=== PATIENT | male | born 1975 | race Caucasian/White ===

== ENCOUNTER 2019-03-11 13:08 | Inpatient (IN) | payer MEDICARE, OTHER ==
[~2019-03-11] VITALS: Ht 137.2 cm; Wt 45.2 kg
[2019-03-11 13:10] VITALS: Ht 137.2 cm; Wt 45.2 kg
[2019-03-11] MEDS ORDERED: SODIUM CHLORIDE 0.9% 1L BAG IV* STA (13:12)
[2019-03-11] MEDS ORDERED: CEFEPIME 2GM/50 ML (PMX) 50 ML IVPB STA (13:12)
[2019-03-11] MEDS ORDERED: VANCOMYCIN 1 GM (PMX) 250 ML IVPB ONE (13:30)
[2019-03-11] MEDS ORDERED: BENZ1TAB7 PO (13:30)
[2019-03-11] MEDS ORDERED: FOLI-49 PO (13:31)
[2019-03-11] MEDS ORDERED: DOCU-159 PO (13:31)
[2019-03-11] MEDS ORDERED: MIDO5TAB PO (13:32)
[2019-03-11] MEDS ORDERED: LACTINEX PO (13:32)
[2019-03-11] MEDS ORDERED: OCTR50DI2 SC (13:33)
[2019-03-11] MEDS ORDERED: MULT-105 PO (13:33)
[2019-03-11] MEDS ORDERED: PANT40TA4 PO (13:34)
[2019-03-11] MEDS ORDERED: PRED2.5T3 PO (13:34)
[2019-03-11] MEDS ORDERED: PROT946L PO (13:35)
[2019-03-11] MEDS ORDERED: SENN-120 PO (13:35)
[2019-03-11] MEDS ORDERED: QUET50TA PO (13:36)
[2019-03-11] MEDS ORDERED: ACET1TAB40 PO (13:38)
[2019-03-11] MEDS ORDERED: ACET-141 PO (13:38)
[2019-03-11] MEDS ORDERED: BALS60OI TOP (13:39)
[2019-03-11] MEDS ORDERED: ASC500 PO (13:40)
[2019-03-11] MEDS ORDERED: ALPR0.5T PO (13:41)
[2019-03-11] MEDS ORDERED: TUBE5VIA3 ID (13:42)
[2019-03-11] MEDS ORDERED: DEXTROSE 5%-0.45% NACL 1,000 ML IV SCH (14:13)
[2019-03-11] MEDS ORDERED: ONDANSETRON 4 MG INJ IV PRN ×2 (14:30)
[2019-03-11] MEDS ORDERED: ACETAMINOPHEN 325 MG TAB PO PRN ×2 (14:30)
[2019-03-11] MEDS ORDERED: NACL 0.9% 3 ML SYG IV SCH (14:30)
[2019-03-11] MEDS ORDERED: ACETAMINOPHEN/CODEINE #3 TAB PO PRN (14:30)
[2019-03-11] MEDS ORDERED: ALPRAZOLAM 0.5 MG TAB PO PRN (14:30)
[2019-03-11] MEDS ORDERED: ACETAMINOPHEN 650 MG SUPP PR PRN (15:00)
--- NOTE | 2019-03-11 15:26 | HP ---
Date/Time of Note Date/Time of Note DATE: 03/11/19 TIME: 14:45 Assessment/Plan VTE Prophylaxis SCD applied (from Nsg): Yes Pharmacological prophylaxis: LMWH Lines/Catheters IV Catheter Type (from Nrsg): Saline Lock Urinary Cath still in place: Yes Reason Cath still needed: urinary retention Assessment/Plan Assessment/Plan 1. Sepsis secondary to right sided pneumonia and UTI - Broad spectrum antibiotics started and ID consulted for antibiotic recommendations - Lactic acid normal but WBC slightly elevated - presented with fever and Tylenol PRN 2. Right sided Pneumonia - will treat with IV antibiotics and nebs - Pulmonology was consulted for further recommendations - Seen on CXR. O2 as needed to maintain saturations - Speech evaluation placed to assess for aspiration given right sided PNA - will keep NPO for now until assessed 3. Acute dehydration - most likely etiology of tachycardia given dry mucous membranes - IVF on board 4. UTI - UA noted - urine cultures sent - IV antibiotics on board 5. Anemia - will check iron levels - no verito bleeding appreciated 6. Mood disorder - continue home medications 7. ?Congenital abnormalities 8. Diet - keep NPO for now 9. DVT ppx - LMWH 10. Disposition - Admit to telemetry for treatment of sepsis secondary to UTI and right sided Pneumonia - request made to obtain patients medical chart from [facility] Result Diagram: 03/11/19 1331 03/11/19 1331 Results 24hrs Laboratory Tests Test 03/11/19 13:31 03/11/19 13:32 03/11/19 13:45 White Blood Count 14.9 H Red Blood Count 3.61 L Hemoglobin 10.5 L Hematocrit 32.6 L Mean Corpuscular Volume 90.3 Mean Corpuscular Hemoglobin 29.1 Mean Corpuscular Hemoglobin Concent 32.2 Red Cell Distribution Width 19.1 H Platelet Count 402 Mean Platelet Volume 8.8 Immature Granulocytes % 0.700 H Neutrophils % 80.8 H Lymphocytes % 15.3 Monocytes % 3.0 Eosinophils % 0.0 Basophils % 0.2 Nucleated Red Blood Cells % 0.0 Immature Granulocytes # 0.100 H Neutrophils # 12.1 H Lymphocytes # 2.3 Monocytes # 0.4 Eosinophils # 0.0 Basophils # 0.0 Nucleated Red Blood Cells # 0.0 Prothrombin Time 16.0 H Prothrombin Time Ratio 1.3 INR International Normalized Ratio 1.27 Activated Partial Thromboplast Time 28.3 Sodium Level 138 Potassium Level 3.9 Chloride Level 109 Carbon Dioxide Level 22 Anion Gap 7 Blood Urea Nitrogen 18 Creatinine 0.52 L Est Glomerular Filtrat Rate mL/min > 60 Glucose Level 100 Calcium Level 8.2 L Total Bilirubin 0.8 Direct Bilirubin 0.00 Indirect Bilirubin 0.8 Aspartate Amino Transf (AST/SGOT) 20 Alanine Aminotransferase (ALT/SGPT) 12 L Alkaline Phosphatase 82 Troponin I < 0.012 Total Protein 7.3 Albumin 2.9 L Globulin 4.40 H Albumin/Globulin Ratio 0.65 Amylase Level 44 Lipase < 10 L POC Venous Lactate 1.4 Urine Color HILARIO Urine Clarity CLOUDY A Urine pH 6.0 Urine Specific [place] 1.027 Urine Ketones NEGATIVE Urine Nitrite NEGATIVE Urine Bilirubin NEGATIVE Urine Urobilinogen NEGATIVE Urine Leukocyte Esterase 3+ H Urine Microscopic RBC 66 H Urine Microscopic WBC > 182 H Urine Squamous Epithelial Cells FEW Urine Amorphous Crystals FEW A Urine Bacteria FEW A Urine Mucus FEW A Urine Hemoglobin NEGATIVE Urine Glucose NEGATIVE Urine Total Protein 2+ H HPI/ROS Admit Date/Time Admit Date/Time 03/11/19 Hx of Present Illness 43 yo M with congenital deformities presented to ED from residential due to fev ers and tachycardia. Patient is blind and nonverbal. There was no documentation with patient at time of presentation. History obtained from ED physician who was not told any PMH by EMS. Patient currently resides in a SNF and was found to be febrile. In the ED patient was found hypoxic and placed on nonrebreather mask with improvement in saturations. CXR was performed with findings of right sided infiltrate. Patient was started on IV antibiotics as well as IV fluids. ROS All 12 systems reviewed and pertinent positives as per HPI. All others negative. Unable to fully obtain ROS given patient is nonverbal Subjective hx not possible: pt non-verbal Constitutional: febrile Respiratory: shortness of breath; No cough PMH/Family/Social Past Medical History Medical History: other (unknown PMH) Medications Current Medications Vancomycin HCl 250 ml @ 125 mls/hr ONCE ONCE IVPB Last administered on 03/11/19at 13:56; Admin Dose 125 MLS/HR; Start 03/11/19 at 13:30; Stop 03/11/19 at 15:29 Acetaminophen/ Codeine Phosphate (Tylenol No.3) 1 tab Q8H PRN PO PAIN LEVEL 1- 10/10; Start 03/11/19 at 14:30; Status UNV Alprazolam (Xanax) 0.5 mg Q8H PRN PO ANXIETY; Start 03/11/19 at 14:30 Ascorbic Acid (Vitamin C) 500 mg DAILY PO ; Start 03/12/19 at 09:00; Status UNV Benztropine Mesylate (Cogentin) 1 mg Q12H PO ; Start 03/11/19 at 14:30; Status UNV Docusate Sodium (Colace) 100 mg BID PO ; Start 03/11/19 at 21:00; Status UNV Folic Acid (Folic Acid) 1 mg DAILY PO ; Start 03/12/19 at 09:00; Status UNV Midodrine (Proamatine) 5 mg TID PO ; Start 03/11/19 at 21:00; Status UNV Octreotide Acetate (Sandostatin) 50 mcg QHS SC ; Start 03/11/19 at 21:00; Status UNV Pantoprazole (Protonix Tab) 40 mg AC BREAKFAST PO ; Start 03/12/19 at 07:00; Status UNV Prednisone (Prednisone) 2.5 mg DAILY PO ; Start 03/12/19 at 09:00; Status UNV Quetiapine Fumarate (Seroquel) 50 mg BID PO ; Start 03/11/19 at 21:00; Status UNV Senna (Senokot) 2 tab BID PO ; Start 03/11/19 at 21:00; Status UNV Miscellaneous Information 1 tab DAILY PO ; Start 03/12/19 at 09:00; Status UNV Miscellaneous Information 1 each DAILY PO ; Start 03/12/19 at 09:00; Status UNV Dextrose/Sodium Chloride 1,000 ml @ 75 mls/hr [id number] IV ; Start 03/11/19 at 14:13; Status UNV IV Flush (NS 3 ml) 3 ml PER PROTOCOL IV ; Start 03/11/19 at 14:30; Status UNV Ondansetron HCl (Zofran Inj) 4 mg Q6H PRN IV NAUSEA/VOMITING; Start 03/11/19 at 14:30; Status UNV Acetaminophen (Tylenol Tab) 650 mg Q6H PRN PO .PAIN 1-3 OR TEMP; Start 03/11/19 at 14:30; Status UNV Enoxaparin Sodium (Lovenox) 40 mg DAILY SC ; Start 03/12/19 at 09:00; Status UNV Cefepime HCl 50 ml @ 100 mls/hr Q12 IV ; Start 03/11/19 at 21:00; Status UNV Albuterol (Proventil 0.083% (Neb)) 2.5 mg Q6HWA RESP THERAPY NEB ; Start 03/11/19 at 20:00 Albuterol/ Ipratropium (Duoneb) 3 ml Q2H RESP THERAPY PRN NEB SHORTNESS OF BREATH; Start 03/11/19 at 14:30 Ondansetron HCl (Zofran Inj) 4 mg ER BRIDGE PRN IV NAUSEA/VOMITING; Start 03/11/19 at 14:30; Stop 03/12/19 at 14:29 Acetaminophen (Tylenol Tab) 650 mg ER BRIDGE PRN PO .MILD PAIN 1-3 OR TEMP; Start 03/11/19 at 14:30; Stop 03/12/19 at 14:29 Coded Allergies: No Known Allergy (Unverified , 03/11/19) Past Surgical History Past Surgical Hx: other (abdominal surgical scar noted) Family History Significant Family History: other (unknown) Social History Alcohol Use: none Smoking Status: Never smoker Drug Use: none Exam/Review of Systems Vital Signs Vitals Vital Signs Date Temp Pulse Resp B/P (MAP) Pulse Ox O2 O2 Flow FiO2 Time Delivery Rate 03/11/19 Simple 5 13:15 Mask 03/11/19 101.6 132 24 91/ 60 13:10 Exam Exam General: Patient is laying bed, dehydration with temporal wasting, sucking motion with mouth but does not appear in any respiratory distress HEENT: Atraumatic, normocephalic. eyes sunken with whitened pupil Neck: Supple with full range of motion. No rigidity or meningismus Chest: nontender Lungs: Coarse breath sounds diffusely, No wheezing Heart: Normal S1-S2, Regular rhythm, tachycardia. systolic murmur Abdomen: Soft , nontender, nondistended , bowel sounds are present. No guarding no rebound tenderness , No masses or organomegaly Extremities: contracture of lower extremities, muscle wasting UE and LE b/l. no cyanosis, clubbing, or edema Neurologic: unable to assess Skin: no rashes or lesions appreciated. midline abdominal scar appreciated Additional Comments Home medications reviewed PROCEDURE: XR Chest. CLINICAL INDICATION: chest pain TECHNIQUE: Single frontal view of the chest was obtained COMPARISON: None FINDINGS: There is mild cardiomegaly. There are extensive right upper lobe and right lower lobe infiltrates. There is a small right pleural effusion. There is no pneumothorax. RPTAT: AA IMPRESSION: Extensive infiltrates in the right upper lobe and right lower lobe. .Ajit Rhodes MD, MD Date Time Electronically viewed and signed by .Ajit Rhodes MD, MD on 03/11/2019 13:48 MANDO LUCAS MD Mar 11, 2019 14:58
--- NOTE | 2019-03-11 15:50 | ERD ---
ER Documentation Chief Complaint Chief Complaint Tachycardia, fever X 1 day HPI This is a 43-year-old male who is bedbound blind and unable to talk due to suspected Down syndrome. The patient was brought into the emergency department from EMS from a SNF facility being [facility], [place]. They indicate that the patient has a history of gastroesophageal reflux disease, hereditary spastic paraplegia and history of muscle wasting and atrophy. Nursing staff at [facility] indicated that the patient has had a fever and tachycardia for roughly 24 hours. It is unknown if the patient had received antipyretics prior to arrival. There is no documentation that came with the patient so history was very limited. ROS All systems reviewed and are negative except as per history of present illness. Medications Home Meds Reported Medications Tuberculin,Purif.prot.deriv. (Tubersol) 5 Tub Unit/0.1 Ml Vial, 5 TUB ID ONCE, VIAL START DATE 03/14/19 AND END DATE 03/14/19 03/11/19 Alprazolam* (Xanax*) 0.5 Mg Tab, 0.5 MG PO Q8H PRN for ANXIETY, TAB FOR 14 DAYS, STOP DATE 03/17/19 03/11/19 Ascorbic Acid (Vitamin C) 500 Mg Tab, 500 MG PO DAILY, TAB 03/11/19 Balsam [place] Oil (Venelex Ointment) 60 Gm Oint..gm., 1 APPLIC TOP DAILY, #1 TUB 03/11/19 Acetaminophen* (Acetaminophen*) 500 MG Extra Strength Tablet, 500 MG PO Q6H PRN for MILD PAIN(1-3)OR ELEVATED TEMP, TAB 03/11/19 Acetaminophen with Codeine (Acetaminophen-Cod #3 Tablet) 1 Each Tablet, 1 TAB PO Q8H PRN for PAIN LEVEL 1-10/10, #7 TAB 03/11/19 Quetiapine Fumarate* (Seroquel*) 50 Mg Tablet, 50 MG PO BID, TAB 03/11/19 Sennosides* (Senna Lax*) 8.6 Mg Tablet, 2 TAB PO BID, TAB 03/11/19 Protein Supplement (Promod) 946 Ml Liquid, 30 ML PO TID 03/11/19 Prednisone* (Prednisone*) 2.5 Mg Tablet, 2.5 MG PO DAILY, TAB 03/11/19 Pantoprazole* (Pantoprazole*) 40 Mg Tablet.dr, 40 MG PO AC BREAKFAST, TAB 03/11/19 Octreotide Acetate* (Octreotide Acetate*) 50 Mcg/1 Ml Disp.syrin, 50 MCG SC QHS, VIAL 03/11/19 Multivitamin with Minerals (Multivitamins with Minerals) 1 Each Tablet, 1 EACH PO DAILY, TAB 03/11/19 Midodrine* (Midodrine*) 5 Mg Tablet, 5 MG PO TID, TAB 03/11/19 Lactobacillus Acidophilus* (Lactinex*) 1 Tab Chew, 1 TAB PO DAILY, TAB 03/11/19 Folic Acid* (Folic Acid*) 1 Mg Tablet, 1 MG PO DAILY, TAB 03/11/19 Docusate Sodium* (Docusate Sodium*) 100 Mg Capsule, 100 MG PO BID, #60 CAP 03/11/19 Benztropine Mesylate* (Benztropine Mesylate*) 1 Mg Tablet, 1 MG PO Q12H, TAB 03/11/19 Allergies Allergies: Coded Allergies: No Known Allergy (Unverified , 03/11/19) PMhx/Soc Medical and Surgical Hx: Unable to obtain Hx Alcohol Use: No Hx Substance Use: No Hx Tobacco Use: No Smoking Status: Never smoker Physical Exam Vitals Vital Signs Date Temp Pulse Resp B/P (MAP) Pulse Ox O2 O2 Flow FiO2 Time Delivery Rate 03/11/19 125 24 95/59 (71) 96 Mask 5.0 13:30 03/11/19 Simple 5 13:15 Mask 03/11/19 Simple 5.0 13:15 Mask 03/11/19 101.6 132 24 91/ 60 13:10 Physical Exam Constitutional: Disheveled. HEENT: Atraumatic. Obvious abnormalities with sclera present and no pupils with congenital blindness. Very dry mucous membranes.No tonsillar exudates. Neck: No nuchal rigidity. No lymphadenopathy. No posterior cervical spine tenderness or step-offs. Respiratory: Tachypneic. Decreased breath sounds heard throughout the right hemithorax. No wheezing no rhonchi no rales. Cardiovascular: Tachycardic with regular rhythm. Systolic murmur heard between the first and second intercostal space with no radiation. No rubs were appreciated.S1, S2 normal. Distal pulses are palpable 2+ bilaterally. GI: Abdomen was soft. Nontender. Non Distended. No pulsatile abdominal masses or bruits. No rebound. No guarding. Bowel sounds were present and normal. Previous surgical scar. Muscle skeletal: Muscle atrophy of the bilateral lower extremities. Flexion contraction. Skin: No petechia, no purpura. No lesions on the palms or the soles of the feet. No maculopapular rash. NEURO: Patient is bedbound. Aphasic. Does not follow verbal command. Result Diagram: 03/12/1952303/12/19523 Results 24 hrs Laboratory Tests Test 03/11/19 13:31 03/11/19 13:32 03/11/19 13:45 White Blood Count 14.9 10^3/ul Red Blood Count 3.61 10^6/ul Hemoglobin 10.5 g/dl Hematocrit 32.6 % Mean Corpuscular Volume 90.3 fl Mean Corpuscular Hemoglobin 29.1 pg Mean Corpuscular 32.2 g/dl Hemoglobin Concent Red Cell Distribution Width 19.1 % Platelet Count 402 10^3/UL Mean Platelet Volume 8.8 fl Immature Granulocytes % 0.700 % Neutrophils % 80.8 % Lymphocytes % 15.3 % Monocytes % 3.0 % Eosinophils % 0.0 % Basophils % 0.2 % Nucleated Red Blood Cells % 0.0 /100WBC Immature Granulocytes # 0.100 10^3/ul Neutrophils # 12.1 10^3/ul Lymphocytes # 2.3 10^3/ul Monocytes # 0.4 10^3/ul Eosinophils # 0.0 10^3/ul Basophils # 0.0 10^3/ul Nucleated Red Blood Cells # 0.0 10^3/ul Prothrombin Time 16.0 Sec Prothrombin Time Ratio 1.3 INR International 1.27 Normalized Ratio Activated Partial Thromboplast 28.3 Sec Time Sodium Level 138 mmol/L Potassium Level 3.9 mmol/L Chloride Level 109 mmol/L Carbon Dioxide Level 22 mmol/L Anion Gap 7 Blood Urea Nitrogen 18 mg/dl Creatinine 0.52 mg/dl Est Glomerular Filtrat > 60 mL/min Rate mL/min Glucose Level 100 mg/dl Calcium Level 8.2 mg/dl Total Bilirubin 0.8 mg/dl Direct Bilirubin 0.00 mg/dl Indirect Bilirubin 0.8 mg/dl Aspartate Amino 20 IU/L Transf (AST/SGOT) Alanine 12 IU/L Aminotransferase (ALT/SGPT) Alkaline Phosphatase 82 IU/L Troponin I < 0.012 ng/ml Total Protein 7.3 g/dl Albumin 2.9 g/dl Globulin 4.40 g/dl Albumin/Globulin Ratio 0.65 Amylase Level 44 U/L Lipase < 10 U/L POC Venous Lactate 1.4 mmol/L Urine Color HILARIO Urine Clarity CLOUDY Urine pH 6.0 Urine Specific [place] 1.027 Urine Ketones NEGATIVE mg/dL Urine Nitrite NEGATIVE mg/dL Urine Bilirubin NEGATIVE mg/dL Urine Urobilinogen NEGATIVE mg/dL Urine Leukocyte Esterase 3+ Susi/ul Urine Microscopic RBC 66 /HPF Urine Microscopic WBC > 182 /HPF Urine Squamous Epithelial Cells FEW /HPF Urine Amorphous Crystals FEW /HPF Urine Bacteria FEW /HPF Urine Mucus FEW /HPF Urine Hemoglobin NEGATIVE mg/dL Urine Glucose NEGATIVE mg/dL Urine Total Protein 2+ mg/dl Current Medications Medications Dose Sig/Clarence Start Time Status Last (Trade) Ordered Route PRN Stop Time Admin Dose Reason Admin Sodium 2,100 ml BOLUS OVER 2 03/11/19 DC 03/11/19 Chloride HOURS STAT 13:12 13:33 (NS) IV* 03/11/19 13:14 Cefepime HCl 50 ml @ ONCE STAT 03/11/19 DC 03/11/19 100 mls/hr IVPB 13:12 13:33 03/11/19 13:41 Vancomycin 250 ml @ ONCE ONCE 03/11/19 DC 03/11/19 HCl 125 mls/hr IVPB 13:30 13:56 03/11/19 15:29 1 tab Q8H PRN 03/11/19 Acetaminophen PO PAIN 14:30 / Codeine LEVEL 1-06/10 Phosphate (Tylenol No.3) Alprazolam 0.5 mg Q8H PRN 03/11/19 (Xanax) PO ANXIETY 14:30 1,000 ml @ [id number] IV 03/11/19 Hold 03/11/19 Dextrose/Sodi 75 mls/hr 14:13 20:35 um Chloride IV Flush 3 ml PER 03/11/19 (NS 3 ml) PROTOCOL IV 14:30 Ondansetron 4 mg Q6H PRN 03/11/19 HCl (Zofran IV 14:30 Inj) NAUSEA/VOMITI NG 650 mg Q6H PRN 03/11/19 Acetaminophen PO .PAIN 1-3 14:30 (Tylenol OR TEMP Tab) Albuterol/ 3 ml Q2H RESP 03/11/19 03/12/19 Ipratropium THERAPY PRN 14:30 00:23 (Duoneb) NEB SHORTNESS OF BREATH Ondansetron 4 mg ER BRIDGE 03/11/19 HCl (Zofran PRN IV 14:30 Inj) NAUSEA/VOMITI 03/12/19 14:29 NG 650 mg ER BRIDGE 03/11/19 Acetaminophen PRN PO 14:30 (Tylenol .MILD PAIN 03/12/19 14:29 Tab) 1-3 OR TEMP Procedures/MDM This is a 43-year-old male that appears to have underlying cerebral palsy. The patient was tachycardic and hypoxic and did meet Sirs criteria. Lactic acid however was normal. The patient did receive IV fluids for suspected clinical dehydration. I obtained a bedside radiograph of the chest which was reviewed by myself. The patient had significant infiltrates in the right upper and lower lung base. This was thought to be secondary to aspiration pneumonia. The patient had received IV antibiotics after blood cultures were obtained. The patient received cefepime and vancomycin. The patient also had an indwelling Sanabria catheter with a suspected urinary tract infection as the urine was very cloudy. 12 Lead EKG tracing ordered and reviewed by myself showed: Sinus tachycardia 119 bpm and no arrhythmia. HI interval normal. QRS duration normal. PVCs No ST segment elevation No ST segment depression. No changes consistent with acute ischemia. The patient will be admitted for continuation of IV antibiotics to the hospitalist Dr. Dominguez. The patient will go to the telemetry service as he was still tachycardic thought to be secondary to dehydration and the infectious process being the pneumonia and urinary tract infection. Critical Care: Time: 65 minutes Treatments/Evaluations: Close monitoring and treatment of unstable vital signs, cardiorespiratory, and neurologic status, while maintaining tight balance of fluid, respiratory, and cardiac interventions. Time does not include performing any of the above billable procedures. Departure Diagnosis: Primary Impression: Pneumonia Pneumonia type: aspiration pneumonia Aspiration pneumonia type: unspecified Laterality: right Lung location: unspecified part of lung Qualified Codes: J69.0 - Pneumonitis due to inhalation of food and vomit Condition: Serious ELBA ELIZABETH MD Mar 11, 2019 15:33
[2019-03-11 19:25] VITALS: BP 98/66; PULSE 60; RESP 23
[2019-03-11] MEDS: CEFEPIME 1GM/50 ML (PMX) 50 ML IV SCH (20:35)
[2019-03-11] MEDS: SENNA TAB PO SCH ×2 (20:35→20:59)
[2019-03-11] MEDS: DOCUSATE SODIUM 100 MG CAP PO SCH ×2 (20:36→20:59)
[2019-03-11] MEDS: QUETIAPINE 25 MG TAB PO SCH ×2 (20:36→20:59)
[2019-03-11] MEDS: MIDODRINE 5 MG TAB PO SCH ×2 (20:36→20:59)
[2019-03-11] MEDS: BENZTROPINE 1 MG TAB PO SCH (20:59)
[2019-03-11] MEDS: ALBUTEROL 0.083% (NEB) 2.5 MG/3 ML AMP NEB SCH (21:06)
[2019-03-11] MEDS: LORAZEPAM 2 MG INJ IV PRN (21:16)
--- NOTE | 2019-03-11 21:36 | CONS ---
DATE OF ADMISSION: 03/11/2019 DATE OF CONSULTATION: 03/11/2019 TYPE OF CONSULTATION: Infectious Disease. REASON FOR CONSULTATION: Antibiotic management. HISTORY OF PRESENT ILLNESS: Mk Nguyen is a 43-year-old male who came into the emergency room with tachycardia and fever of 1 day's duration. The patient is bedbound, blind, unable to talk due to sanon spected Down syndrome. He came to the emergency room from longterm facility. Has a history o f gastroesophageal reflux disease, hereditary spastic paraplegia, history of muscle wasting and atrop hy. The patient has had a fever and tachycardia for about 24 hours and has received antipyretics stanislav or to arrival. PAST MEDICAL HISTORY: Essentially as outlined. FAMILY HISTORY: Noncontributory. SOCIAL HISTORY: He lives in a longterm facility. ALLERGIES: NONE TO PENICILLIN, SULFA OR FOODS. MEDICATIONS: Per chart. REVIEW OF SYSTEMS: As per HPI. PHYSICAL EXAMINATION: VITAL SIGNS: T-max 101.6, pulse of 132, respirations 24, and blood pressure was 95/59. GENERAL: The patient has SIRS with probable septic shock. He is disheveled. HEENT: Within normal limits. He has congenital blindness. Sclerae are present. No pupil, congenit al blindness. Mouth without tonsillar exudates. NECK: Supple. LYMPH NODES: None palpable. CHEST: Decreased breath sounds heard throughout the right hemithorax. HEART: Without murmur or gallop. He is tachycardic. ABDOMEN: Soft, nontender, nondistended. Previous surgical scar present. EXTREMITIES: Muscle atrophy of the bilateral lower extremities with flexion contractures. SKIN: Without petechiae per no lesion on the palms or soles of his feet. RECTAL AND GENITAL: Deferred. NEUROLOGIC: The patient is aphasic, bedbound, does not follow commands. ANCILLARY LABORATORY DATA: White count 14.9, H and H of 10.5 and 32.6, platelet count 402,000. BUN and creatinine 18/0.52. Neutrophils 81%. The patient was started on vancomycin and cefepime. Chest x-ray shows extensive infiltrates in the right upper lobe and right lower lobe. Urine shows 3+ leuko cyte esterase and greater than 182 white cells per high powered field. IMPRESSION: The patient has both pneumonia, probably aspiration, as well as urinary tract infection. He has right-sided pneumonia, urinary tract infection. He is on vancomycin and Zosyn. His white c ount is elevated with a shift to the left. We will continue him on this regimen. I would check with conservator or family in terms of how vigorous they want us to be with regards to his code status. I will dictate my findings to the hospitalist. Dictated By: MICHAEL COLON MD, JD/JEFFREY Conf#: [id number] DID#: [id number] CC: MANDO LUCAS MD;*EndCC*
[2019-03-11] MEDS: OCTREOTIDE 50 MCG INJ SC SCH (22:07)
[2019-03-11 23:27] VITALS: BP 111/70; PULSE 125; RESP 25
[2019-03-12] VITALS (14 sets, daily range): BP systolic 99–124; BP diastolic 60–82; PULSE 65–130; RESP 16–21
[2019-03-12] MEDS: ALBUTEROL/IPRATROPIUM (NEB) 3 ML AMP NEB PRN (00:23)
[2019-03-12] MEDS: LORAZEPAM 2 MG INJ IV PRN ×3 (03:08→20:53)
[2019-03-12] MEDS: PANTOPRAZOLE 40 MG INJ IV SCH (06:29)
[2019-03-12] MEDS ORDERED: PANTOPRAZOLE (EC) 40 MG TAB PO SCH (07:00)
[2019-03-12] MEDS: ALBUTEROL 0.083% (NEB) 2.5 MG/3 ML AMP NEB SCH (07:45)
[2019-03-12] MEDS: CEFEPIME 1GM/50 ML (PMX) 50 ML IV SCH ×2 (08:21→20:52)
[2019-03-12] MEDS: ENOXAPARIN 40 MG/0.4 ML SYG SC SCH (08:32)
[2019-03-12] MEDS: BENZTROPINE 1 MG TAB PO SCH ×2 (08:33→20:54)
[2019-03-12] MEDS: MULTIVITAMINS THERAPEUTIC TAB PO SCH (08:34)
[2019-03-12] MEDS: MIDODRINE 5 MG TAB PO SCH ×3 (08:34→20:54)
[2019-03-12] MEDS: SENNA TAB PO SCH ×2 (08:34→20:55)
[2019-03-12] MEDS: LACTOBACILLUS RHAMNOSUS CAP PO SCH (08:34)
[2019-03-12] MEDS: ASCORBIC ACID 500 MG TAB PO SCH (08:34)
[2019-03-12] MEDS: DOCUSATE SODIUM 100 MG CAP PO SCH ×2 (08:34→20:54)
[2019-03-12] MEDS: QUETIAPINE 25 MG TAB PO SCH ×2 (08:34→20:56)
[2019-03-12] MEDS: FOLIC ACID 1 MG TAB PO SCH (08:34)
[2019-03-12] MEDS ORDERED: ALBUTEROL/IPRATROPIUM (NEB) 3 ML AMP HHN SCH ×2 (09:00→14:00)
[2019-03-12] MEDS ORDERED: KETOROLAC 15 MG INJ IV PRN (09:00)
[2019-03-12] MEDS ORDERED: morphine 2 MG INJ IV PRN (09:00)
[2019-03-12] MEDS ORDERED: predniSONE 2.5 MG TAB PO SCH (09:00)
[2019-03-12] MEDS ORDERED: NON-FORMULARY/PATIENT OWN MED (Lactobacillus Acidophilus* (Lactinex*) 1 TAB) PO SCH (09:00)
--- NOTE | 2019-03-12 09:55 | PN ---
Date/Time of Note Date/Time of Note DATE: 03/12/19 TIME: 09:48 Assessment/Plan VTE Prophylaxis Risk score (from Ns)>0 risk: 5 SCD applied (from Ns): Yes Pharmacological prophylaxis: LMWH Lines/Catheters IV Catheter Type (from Nrs): Saline Lock Urinary Cath still in place: Yes Reason Cath still needed: urinary retention Assessment/Plan Assessment/Plan 1. Sepsis secondary to right sided pneumonia and UTI - ID on board and appreciate recommendations. Continue on Vanc and Cefepime - Lactic acid normal. WBC trending down and remains afebrile 2. Bilateral pneumonia - CXR showing diffuse right sided and left lower PNA. desaturated last night but improved this am after neb tx. - Will add solumedrol - Pulmonology was consulted for further recommendations - Speech evaluation placed to assess for aspiration given right sided PNA - will keep NPO for now until assessed 3. Acute dehydration - most likely etiology of tachycardia given dry mucous membranes - IVF on board 4. UTI - UA noted - urine cultures sent - IV antibiotics on board 5. Anemia - will check iron levels when sepsis improved - no verito bleeding appreciated 6. 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 Disposition - Continue treatment for bilateral pneumonia and awaiting recommendations from Pulmonology Result Diagram: 03/12/19 0524 03/12/19 0524 Results 24hrs Laboratory Tests Test 03/11/19 13:31 03/11/19 13:32 03/11/19 13:45 03/11/19 15:17 White Blood 14.9 H Count Red Blood Count 3.61 L Hemoglobin 10.5 L Hematocrit 32.6 L Mean Corpuscular 90.3 Volume Mean Corpuscular 29.1 Hemoglobin Mean Corpuscular 32.2 Hemoglobin Jacque nt Red Cell 19.1 H Distribution Width Platelet Count 402 Mean Platelet 8.8 Volume Immature 0.700 H Granulocytes % Neutrophils % 80.8 H Lymphocytes % 15.3 Monocytes % 3.0 Eosinophils % 0.0 Basophils % 0.2 Nucleated Red 0.0 Blood Cells % Immature 0.100 H Granulocytes # Neutrophils # 12.1 H Lymphocytes # 2.3 Monocytes # 0.4 Eosinophils # 0.0 Basophils # 0.0 Nucleated Red 0.0 Blood Cells # Prothrombin Time 16.0 H Prothrombin Time 1.3 Ratio INR 1.27 International Normalized Ratio Activated 28.3 Partial Thrombop last Time Sodium Level 138 Potassium Level 3.9 Chloride Level 109 Carbon Dioxide 22 Level Anion Gap 7 Blood Urea 18 Nitrogen Creatinine 0.52 L Est Glomerular > 60 Filtrat Rate mL/min Glucose Level 100 Calcium Level 8.2 L Total Bilirubin 0.8 Direct Bilirubin 0.00 Indirect 0.8 Bilirubin Aspartate Amino 20 Transf (AST/SGOT ) Alanine 12 L Aminotransferase (ALT/SGPT) Alkaline 82 Phosphatase Troponin I < 0.012 Total Protein 7.3 Albumin 2.9 L Globulin 4.40 H Albumin/Globulin 0.65 Ratio Amylase Level 44 Lipase < 10 L POC Venous 1.4 Lactate Urine Color HILARIO Urine Clarity CLOUDY A Urine pH 6.0 Urine Specific 1.027 Lamar Urine Ketones NEGATIVE Urine Nitrite NEGATIVE Urine Bilirubin NEGATIVE Urine NEGATIVE Urobilinogen Urine Leukocyte 3+ H Esterase Urine 66 H Microscopic RBC Urine > 182 H Microscopic WBC Urine Squamous FEW Epithelial Cells Urine Amorphous FEW A Crystals Urine Bacteria FEW A Urine Mucus FEW A Urine Hemoglobin NEGATIVE Urine Glucose NEGATIVE Urine Total 2+ H Protein Lactic Acid 1.8 Level Test 03/11/19 17:24 03/12/19 00:42 03/12/19 05:24 03/12/19 07:00 Lactic Acid 1.4 Level Blood Gas Blood arterial Blood arterial Specimen Source Arterial Blood 03/12/2019 12:45 03/12/2019 7:26: Date Drawn :50 AM 07 AM Arterial Blood 7.349 L 7.431 pH (Temp corrected) Arterial Blood 40.9 33.5 L pCO2 (Temp correct) Arterial Blood 89.2 84.1 pO2 (Temp corrected) Arterial Blood 22.0 21.8 L HCO3 Arterial Blood -3.4 L -1.9 Base Excess Arterial Blood 95.8 96.3 Oxygen Saturatio n Jann Test ACCEPTAB N/A Arterial Blood Right Radial Right Brachial Gas Puncture Site Arterial 0.2 0.3 Blood Carboxyhem oglobin Arterial Blood 0.2 0.4 Methemoglobin Blood Gas A-a O2 214.1 H 227.5 H Differential Oxyhemoglobin 95.4 95.6 Percent Blood Gas 37.0 37.0 Temperature Blood Gas MASK - SIMPLE MASK - SIMPLE Modality FiO2 49.0 49.0 Blood Gas STU TM Notified Whom Blood Gas 03/12/2019 12:59 03/12/2019 7:42: Notified Time :57 AM 44 AM White Blood 13.8 H Count Red Blood Count 3.43 L Hemoglobin 10.1 L Hematocrit 31.3 L Mean Corpuscular 91.3 Volume Mean Corpuscular 29.4 Hemoglobin Mean Corpuscular 32.3 Hemoglobin Jacque nt Red Cell 18.8 H Distribution Width Platelet Count 379 Mean Platelet 8.6 Volume Immature 0.900 H Granulocytes % Neutrophils % 80.8 H Lymphocytes % 14.0 L Monocytes % 3.6 Eosinophils % 0.4 Basophils % 0.3 Nucleated Red 0.0 Blood Cells % Immature 0.130 H Granulocytes # Neutrophils # 11.2 H Lymphocytes # 1.9 Monocytes # 0.5 Eosinophils # 0.1 Basophils # 0.0 Nucleated Red 0.0 Blood Cells # Sodium Level 138 Potassium Level 3.3 L Chloride Level 108 Carbon Dioxide 23 Level Anion Gap 7 Blood Urea 15 Nitrogen Creatinine 0.47 L Est Glomerular > 60 Filtrat Rate mL/min Glucose Level 70 Calcium Level 8.6 Magnesium Level 1.7 Subjective 24 Hr Interval Summary Free Text/Dictation Patient more agitated this am and appears to be uncomfortable. Keeps tugging at sánchez catheter. Per nursing, he was desaturating overnight and given breathing treatments with improvement. Tolerating RA and saturating >90%. Mittens needed given patient keeps pulling at lines/catheter. Exam/Review of Systems Exam Vitals Vital Signs Date Temp Pulse Resp B/P (MAP) Pulse Ox O2 O2 Flow FiO2 Time Delivery Rate 03/12/19 93 7.0 07:47 03/12/19 92 20 Aerosol 07:47 Mask 03/12/19 98.4 114/66 07:25 (82) 03/12/19 50 01:30 Intake and Output 03/11/19 03/11/19 03/12/19 1515:00 23:00 07:00 IntakeIntake Total 50 ml 330 ml OutputOutput Total 750 ml BalanceBalance 50 ml -420 ml Exam General: Patient is laying bed, dry mucous membranes, agitated Eyes: sunken with whitened pupils Neck: Supple Chest: nontender Lungs: Coarse breath sounds diffusely, No wheezing Heart: Normal S1-S2, Regular rhythm, tachycardia. systolic murmur Abdomen: Soft , nontender, nondistended , bowel sounds are present. Extremities: contracture of lower extremities, muscle wasting UE and LE b/l. no cyanosis, clubbing, or edema Results Results 24hrs Laboratory Tests Test 03/11/19 13:31 03/11/19 13:32 03/11/19 13:45 03/11/19 15:17 White Blood 14.9 H Count Red Blood Count 3.61 L Hemoglobin 10.5 L Hematocrit 32.6 L Mean Corpuscular 90.3 Volume Mean Corpuscular 29.1 Hemoglobin Mean Corpuscular 32.2 Hemoglobin Jacque nt Red Cell 19.1 H Distribution Width Platelet Count 402 Mean Platelet 8.8 Volume Immature 0.700 H Granulocytes % Neutrophils % 80.8 H Lymphocytes % 15.3 Monocytes % 3.0 Eosinophils % 0.0 Basophils % 0.2 Nucleated Red 0.0 Blood Cells % Immature 0.100 H Granulocytes # Neutrophils # 12.1 H Lymphocytes # 2.3 Monocytes # 0.4 Eosinophils # 0.0 Basophils # 0.0 Nucleated Red 0.0 Blood Cells # Prothrombin Time 16.0 H Prothrombin Time 1.3 Ratio INR 1.27 International Normalized Ratio Activated 28.3 Partial Thrombop last Time Sodium Level 138 Potassium Level 3.9 Chloride Level 109 Carbon Dioxide 22 Level Anion Gap 7 Blood Urea 18 Nitrogen Creatinine 0.52 L Est Glomerular > 60 Filtrat Rate mL/min Glucose Level 100 Calcium Level 8.2 L Total Bilirubin 0.8 Direct Bilirubin 0.00 Indirect 0.8 Bilirubin Aspartate Amino 20 Transf (AST/SGOT ) Alanine 12 L Aminotransferase (ALT/SGPT) Alkaline 82 Phosphatase Troponin I < 0.012 Total Protein 7.3 Albumin 2.9 L Globulin 4.40 H Albumin/Globulin 0.65 Ratio Amylase Level 44 Lipase < 10 L POC Venous 1.4 Lactate Urine Color HILARIO Urine Clarity CLOUDY A Urine pH 6.0 Urine Specific 1.027 Lamar Urine Ketones NEGATIVE Urine Nitrite NEGATIVE Urine Bilirubin NEGATIVE Urine NEGATIVE Urobilinogen Urine Leukocyte 3+ H Esterase Urine 66 H Microscopic RBC Urine > 182 H Microscopic WBC Urine Squamous FEW Epithelial Cells Urine Amorphous FEW A Crystals Urine Bacteria FEW A Urine Mucus FEW A Urine Hemoglobin NEGATIVE Urine Glucose NEGATIVE Urine Total 2+ H Protein Lactic Acid 1.8 Level Test 03/11/19 17:24 03/12/19 00:42 03/12/19 05:24 03/12/19 07:00 Lactic Acid 1.4 Level Blood Gas Blood arterial Blood arterial Specimen Source Arterial Blood 03/12/2019 12:45 03/12/2019 7:26: Date Drawn :50 AM 07 AM Arterial Blood 7.349 L 7.431 pH (Temp corrected) Arterial Blood 40.9 33.5 L pCO2 (Temp correct) Arterial Blood 89.2 84.1 pO2 (Temp corrected) Arterial Blood 22.0 21.8 L HCO3 Arterial Blood -3.4 L -1.9 Base Excess Arterial Blood 95.8 96.3 Oxygen Saturatio n Jann Test ACCEPTAB N/A Arterial Blood Right Radial Right Brachial Gas Puncture Site Arterial 0.2 0.3 Blood Carboxyhem oglobin Arterial Blood 0.2 0.4 Methemoglobin Blood Gas A-a O2 214.1 H 227.5 H Differential Oxyhemoglobin 95.4 95.6 Percent Blood Gas 37.0 37.0 Temperature Blood Gas MASK - SIMPLE MASK - SIMPLE Modality FiO2 49.0 49.0 Blood Gas MA TM Notified Whom Blood Gas 03/12/2019 12:59 03/12/2019 7:42: Notified Time :57 AM 44 AM White Blood 13.8 H Count Red Blood Count 3.43 L Hemoglobin 10.1 L Hematocrit 31.3 L Mean Corpuscular 91.3 Volume Mean Corpuscular 29.4 Hemoglobin Mean Corpuscular 32.3 Hemoglobin Jacque nt Red Cell 18.8 H Distribution Width Platelet Count 379 Mean Platelet 8.6 Volume Immature 0.900 H Granulocytes % Neutrophils % 80.8 H Lymphocytes % 14.0 L Monocytes % 3.6 Eosinophils % 0.4 Basophils % 0.3 Nucleated Red 0.0 Blood Cells % Immature 0.130 H Granulocytes # Neutrophils # 11.2 H Lymphocytes # 1.9 Monocytes # 0.5 Eosinophils # 0.1 Basophils # 0.0 Nucleated Red 0.0 Blood Cells # Sodium Level 138 Potassium Level 3.3 L Chloride Level 108 Carbon Dioxide 23 Level Anion Gap 7 Blood Urea 15 Nitrogen Creatinine 0.47 L Est Glomerular > 60 Filtrat Rate mL/min Glucose Level 70 Calcium Level 8.6 Magnesium Level 1.7 Medications Medication Current Medications Acetaminophen/ Codeine Phosphate (Tylenol No.3) 1 tab Q8H PRN PO PAIN LEVEL 1- 06/10; Start 03/11/19 at 14:30 Alprazolam (Xanax) 0.5 mg Q8H PRN PO ANXIETY; Start 03/11/19 at 14:30 Ascorbic Acid (Vitamin C) 500 mg DAILY PO ; Start 03/12/19 at 09:00 Benztropine Mesylate (Cogentin) 1 mg Q12H PO ; Start 03/11/19 at 21:00 Docusate Sodium (Colace) 100 mg BID PO ; Start 03/11/19 at 21:00 Folic Acid (Folic Acid) 1 mg DAILY PO ; Start 03/12/19 at 09:00 Midodrine (Proamatine) 5 mg TID PO ; Start 03/11/19 at 21:00 Octreotide Acetate (Sandostatin) 50 mcg QHS SC Last administered on 03/11/19at 22:07; Admin Dose 50 MCG; Start 03/11/19 at 21:00 Prednisone (Prednisone) 2.5 mg DAILY PO ; Start 03/12/19 at 09:00 Quetiapine Fumarate (Seroquel) 50 mg BID PO ; Start 03/11/19 at 21:00 Senna (Senokot) 2 tab BID PO ; Start 03/11/19 at 21:00 Dextrose/Sodium Chloride 1,000 ml @ 75 mls/hr [id number] IV Last administered on 03/11/19at 20:35; Admin Dose 75 MLS/HR; Start 03/11/19 at 14:13; Status Hold IV Flush (NS 3 ml) 3 ml PER PROTOCOL IV ; Start 03/11/19 at 14:30 Ondansetron HCl (Zofran Inj) 4 mg Q6H PRN IV NAUSEA/VOMITING; Start 03/11/19 at 14:30 Acetaminophen (Tylenol Tab) 650 mg Q6H PRN PO .PAIN 1-3 OR TEMP; Start 03/11/19 at 14:30 Enoxaparin Sodium (Lovenox) 40 mg DAILY SC Last administered on 03/12/19at 08:32; Admin Dose 40 MG; Start 03/12/19 at 09:00 Cefepime HCl 50 ml @ 100 mls/hr Q12 IV Last administered on 03/12/19at 08:21; Admin Dose 100 MLS/HR; Start 03/11/19 at 21:00 Albuterol/ Ipratropium (Duoneb) 3 ml Q2H RESP THERAPY PRN NEB SHORTNESS OF [place] TH Last administered on 03/12/19at 00:23; Admin Dose 3 ML; Start 03/11/19 at 14:30 Acetaminophen (Tylenol Supp) 650 mg Q4H PRN [place] MILD PAIN(1-3) OR TEMP>38C; Start 03/11/19 at 15:00 Multivitamins Therapeutic (Theragran) 1 tab DAILY PO ; Start 03/12/19 at 09:00 Lactobacillus Acidophilus/ Rhamnosus (Culturelle) 1 cap DAILY PO ; Start 03/12/19 at 09:00 Pantoprazole (Protonix Iv) 40 mg DAILY@06 IV Last administered on 03/12/19at 06:29; Admin Dose 40 MG; Start 03/12/19 at 06:00 Albuterol/ Ipratropium (Duoneb) 3 ml Q4HWA RESP THERAPY HHN ; Start 03/12/19 at 09:00 Lorazepam (Ativan) 1 mg Q4H PRN IV AGITATION; Start 03/12/19 at 09:30 Potassium Chloride 100 ml @ 50 mls/hr Q2H IVPB ; Start 03/12/19 at 09:00; Stop 03/12/19 at 12:59 Ketorolac Tromethamine (Toradol) 15 mg Q6H PRN IV PAIN LEVEL 1-3; Start 03/12/19 at 09:00; Stop 03/15/19 at 08:59 Morphine Sulfate (morphine) 0.5 mg Q4H PRN IV SEVERE PAIN LEVEL 7-10; Start 03/12/19 at 09:00 MANDO LUCAS MD Mar 12, 2019 09:55
[2019-03-12] MEDS ORDERED: PETROLATUM 5 GM OINT TOP PRN (10:00)
[2019-03-12] MEDS: POTASSIUM CHLORIDE 100 ML IVPB SCH ×2 (10:36→13:37)
[2019-03-12] MEDS: METHYLPREDNISOLONE 40 MG INJ IV SCH ×2 (10:36→21:29)
[2019-03-12] MEDS ORDERED: VITAMIN A & D 5 GM OINT PACKET TOP SCH (11:00)
[2019-03-12] MEDS: BALSAM PERU/CASTOR OIL 60 GM TUBE TOP SCH (13:37)
--- NOTE | 2019-03-12 14:48 | CONS ---
Assessment/Plan Assessment/Plan Hospital Course (Demo Recall) No acute changes overnight patient is awake noncommunicative in no distress and afebrile WBC 13.8 platelets 379 neutrophils 80.8 BUN 15 creatinine 0.47 Microbiology: Blood cultures negative urine culture growing gram-negative rods Chest x-ray this morning revealed left basilar infiltrates unchanged, instead extensive consolidations throughout the right lung, unchanged Physical examination: This is a chronically ill-appearing middle-aged man who is in no distress head atraumatic normocephalic neck is supple chest rise symmetrical breath sounds diminished to bases heart S1-S2 abdomen soft bowel sounds hypoactive extremities without cyanosis skin patient has multiple chronic wounds one on the sacrum is healed to the other one on his hip is open Assessment: 1. Sepsis, present on admission 2. Healthcare associated pneumonia, possibly aspirated 3. Urinary tract infection, gram-negative rods 4. Chronic wounds 5. Down syndrome Plan: We are going to keep patient on Vanco and Cefepime and await for final cultures, continue anti-aspiration precautions and local wound care Consultation Date/Type/Reason Admit Date/Time Mar 11, 2019 at 14:30 Initial Consult Date Type of Consult id Date/Time of Note DATE: 03/12/19 TIME: 14:48 Exam/Review of Systems Exam Vitals Vital Signs Date Temp Pulse Resp B/P (MAP) Pulse Ox O2 O2 Flow FiO2 Time Delivery Rate 03/12/19 96 21 12:56 03/12/19 98.1 65 18 118/81 11:08 (93) 03/12/19 7.0 07:47 03/12/19 Aerosol 07:47 Mask Intake and Output 03/11/19 03/11/19 03/12/19 1515:00 23:00 07:00 IntakeIntake Total 50 ml 330 ml OutputOutput Total 750 ml BalanceBalance 50 ml -420 ml Results Result Diagram: 03/12/1924 03/12/1924 Results 24hrs Laboratory Tests Test 03/11/19 15:17 03/11/19 17:24 03/12/19 00:42 03/12/19 05:24 Lactic Acid 1.8 1.4 Level Blood Gas Blood arterial Specimen Source Arterial Blood 03/12/2019 12:45 Date Drawn :50 AM Arterial Blood 7.349 L pH (Temp corrected) Arterial Blood 40.9 pCO2 (Temp correct) Arterial Blood 89.2 pO2 (Temp corrected) Arterial Blood 22.0 HCO3 Arterial Blood -3.4 L Base Excess Arterial Blood 95.8 Oxygen Saturatio n Jann Test ACCEPTAB Arterial Blood Right Radial Gas Puncture Site Arterial 0.2 Blood Carboxyhem oglobin Arterial Blood 0.2 Methemoglobin Blood Gas A-a O2 214.1 H Differential Oxyhemoglobin 95.4 Percent Blood Gas 37.0 Temperature Blood Gas MASK - SIMPLE Modality FiO2 49.0 Blood Gas MA Notified Whom Blood Gas 03/12/2019 12:59 Notified Time :57 AM White Blood 13.8 H Count Red Blood Count 3.43 L Hemoglobin 10.1 L Hematocrit 31.3 L Mean Corpuscular 91.3 Volume Mean Corpuscular 29.4 Hemoglobin Mean Corpuscular 32.3 Hemoglobin Jacque nt Red Cell 18.8 H Distribution Width Platelet Count 379 Mean Platelet 8.6 Volume Immature 0.900 H Granulocytes % Neutrophils % 80.8 H Lymphocytes % 14.0 L Monocytes % 3.6 Eosinophils % 0.4 Basophils % 0.3 Nucleated Red 0.0 Blood Cells % Immature 0.130 H Granulocytes # Neutrophils # 11.2 H Lymphocytes # 1.9 Monocytes # 0.5 Eosinophils # 0.1 Basophils # 0.0 Nucleated Red 0.0 Blood Cells # Sodium Level 138 Potassium Level 3.3 L Chloride Level 108 Carbon Dioxide 23 Level Anion Gap 7 Blood Urea 15 Nitrogen Creatinine 0.47 L Est Glomerular > 60 Filtrat Rate mL/min Glucose Level 70 Calcium Level 8.6 Magnesium Level 1.7 Test 03/12/19 07:00 Blood Gas Blood arterial Specimen Source Arterial Blood 03/12/2019 7:26: Date Drawn 07 AM Arterial Blood 7.431 pH (Temp corrected) Arterial Blood 33.5 L pCO2 (Temp correct) Arterial Blood 84.1 pO2 (Temp corrected) Arterial Blood 21.8 L HCO3 Arterial Blood -1.9 Base Excess Arterial Blood 96.3 Oxygen Saturatio n Jann Test N/A Arterial Blood Right Brachial Gas Puncture Site Arterial 0.3 Blood Carboxyhem oglobin Arterial Blood 0.4 Methemoglobin Blood Gas A-a O2 227.5 H Differential Oxyhemoglobin 95.6 Percent Blood Gas 37.0 Temperature Blood Gas MASK - SIMPLE Modality FiO2 49.0 Blood Gas TM Notified Whom Blood Gas 03/12/2019 7:42: Notified Time 44 AM Medications Medication Current Medications Acetaminophen/ Codeine Phosphate (Tylenol No.3) 1 tab Q8H PRN PO PAIN LEVEL 1- 10/10; Start 03/11/19 at 14:30 Alprazolam (Xanax) 0.5 mg Q8H PRN PO ANXIETY; Start 03/11/19 at 14:30 Ascorbic Acid (Vitamin C) 500 mg DAILY PO ; Start 03/12/19 at 09:00 Benztropine Mesylate (Cogentin) 1 mg Q12H PO ; Start 03/11/19 at 21:00 Docusate Sodium (Colace) 100 mg BID PO ; Start 03/11/19 at 21:00 Folic Acid (Folic Acid) 1 mg DAILY PO ; Start 03/12/19 at 09:00 Midodrine (Proamatine) 5 mg TID PO ; Start 03/11/19 at 21:00 Octreotide Acetate (Sandostatin) 50 mcg QHS SC Last administered on 03/11/19at 22:07; Admin Dose 50 MCG; Start 03/11/19 at 21:00 Quetiapine Fumarate (Seroquel) 50 mg BID PO ; Start 03/11/19 at 21:00 Senna (Senokot) 2 tab BID PO ; Start 03/11/19 at 21:00 Dextrose/Sodium Chloride 1,000 ml @ 75 mls/hr [id number] IV Last administered on 03/11/19at 20:35; Admin Dose 75 MLS/HR; Start 03/11/19 at 14:13; Status Hold IV Flush (NS 3 ml) 3 ml PER PROTOCOL IV ; Start 03/11/19 at 14:30 Ondansetron HCl (Zofran Inj) 4 mg Q6H PRN IV NAUSEA/VOMITING; Start 03/11/19 at 14:30 Acetaminophen (Tylenol Tab) 650 mg Q6H PRN PO .PAIN 1-3 OR TEMP; Start 03/11/19 at 14:30 Enoxaparin Sodium (Lovenox) 40 mg DAILY SC Last administered on 03/12/19at 08:32; Admin Dose 40 MG; Start 03/12/19 at 09:00 Cefepime HCl 50 ml @ 100 mls/hr Q12 IV Last administered on 03/12/19at 08:21; Admin Dose 100 MLS/HR; Start 03/11/19 at 21:00 Albuterol/ Ipratropium (Duoneb) 3 ml Q2H RESP THERAPY PRN NEB SHORTNESS OF BREATH Last administered on 03/12/19at 00:23; Admin Dose 3 ML; Start 03/11/19 at 14:30 Acetaminophen (Tylenol Supp) 650 mg Q4H PRN [place] MILD PAIN(1-3) OR TEMP>38C; Start 03/11/19 at 15:00 Multivitamins Therapeutic (Theragran) 1 tab DAILY PO ; Start 03/12/19 at 09:00 Lactobacillus Acidophilus/ Rhamnosus (Culturelle) 1 cap DAILY PO ; Start 03/12/19 at 09:00 Pantoprazole (Protonix Iv) 40 mg DAILY@06 IV Last administered on 03/12/19at 06:29; Admin Dose 40 MG; Start 03/12/19 at 06:00 Lorazepam (Ativan) 1 mg Q4H PRN IV AGITATION; Start 03/12/19 at 09:30 Ketorolac Tromethamine (Toradol) 15 mg Q6H PRN IV PAIN LEVEL 1-3; Start 03/12/19 at 09:00; Stop 03/15/19 at 08:59 Morphine Sulfate (morphine) 0.5 mg Q4H PRN IV SEVERE PAIN LEVEL 7-10; Start 03/12/19 at 09:00 Albuterol/ Ipratropium (Duoneb) 3 ml Q6HWA RESP THERAPY HHN ; Start 03/12/19 at 14:00 Methylprednisolone Sodium Succinate (Solu-Medrol) 40 mg Q8 IV Last administered on 03/12/19at 10:36; Admin Dose 40 MG; Start 03/12/19 at 11:00 Petrolatum (Vaseline) 1 applic BID PRN TOP DRY MOUTH Last administered on 03/12/19at 10:36; Admin Dose 1 APPLIC; Start 03/12/19 at 10:00 Collagenase (Santyl) 1 applic DAILY TOP ; Start 03/12/19 at 14:00 TANG ESQUEDA NP Mar 12, 2019 14:48
[2019-03-12] MEDS ORDERED: PIPER-TAZO 3.375 GM IV (PMX) 100 ML IVPB SCH (15:00)
[2019-03-12] MEDS ORDERED: VANCOMYCIN IV PER PHARMACY XX SCH (15:00)
[2019-03-12] MEDS ORDERED: VANCOMYCIN 1 GM 250 ML IVPB SCH (17:00)
[2019-03-12] MEDS: COLLAGENASE 5 GM (UD JAR) TOP SCH (17:06)
[2019-03-12] MEDS: LEVALBUTEROL (NEB) 0.63 MG/3 ML AMP HHN SCH (19:48)
--- NOTE | 2019-03-12 21:23 | CONS ---
DATE OF ADMISSION: 03/11/2019 DATE OF CONSULTATION: 03/12/2019 REASON FOR CONSULTATION: Shortness of breath. Thank you, Dr. Dominguez, for this consultation. HISTORY OF PRESENT ILLNESS: A 43-year-old gentleman with history of learning disability, came in wit h increasing shortness of breath, orthopnea, PND, found to have extensive infiltrate, right side grea ter than left. Patient has Down syndrome, unable to give me further history. PAST MEDICAL HISTORY: As above. MEDICATIONS: Per chart. ALLERGIES: NONE. SOCIAL HISTORY: Nonsmoker, no alcohol, no history of drug use. FAMILY HISTORY: Noncontributory. SYSTEMS REVIEW: A 12-point review of systems was negative, other than on admission found. PHYSICAL EXAMINATION: GENERAL: Well-nourished, well-developed gentleman, appears comfortable at rest, no acute distress, c urrently afebrile. VITAL SIGNS: Temperature 98, pulse 65, blood pressure 118/81, O2 saturation 97% on 7 liters. NECK: Supple. No JVD, no lymphadenopathy. CARDIAC: S1, S2, no added sounds or murmurs. CHEST: Diminished air entry bilaterally. ABDOMEN: Soft, nontender. No guarding or rebound. EXTREMITIES: No cyanosis. NEUROLOGIC: Generalized weakness. LABORATORY DATA: White count 13.8, hemoglobin 10.1, platelets 379. BUN 15, creatinine 0.47. ABG: pH 7.43, pCO2 of 33, pO2 of 84. DIAGNOSTIC DATA: Chest x-ray was reviewed, demonstrated extensive consolidation in the right lung an d left base. ASSESSMENT: 1. Likely aspiration pneumonia. 2. Possible community-acquired pneumonia also. 3. History of Down syndrome. 4. Recent urinary tract infection. The patient will require: 1. Continue aspiration precautions. 2. Supplemental O2. 3. Antibiotics 4. DVT and GI prophylaxis. Dictated By: JOE SHAHID MD SV/NTS Conf#: [id number] DID#: [id number] CC: MANDO DOMINGUEZ MD;*EndCC*
[2019-03-12] MEDS: OCTREOTIDE 50 MCG INJ SC SCH (23:03)
[2019-03-13] VITALS (14 sets, daily range): BP systolic 97–133; BP diastolic 60–90; PULSE 76–121; RESP 18–36
[2019-03-13] MEDS ORDERED: VANCOMYCIN 750 MG (PMX) 250 ML IVPB SCH (05:00)
[2019-03-13] MEDS: PANTOPRAZOLE 40 MG INJ IV SCH (05:43)
[2019-03-13] MEDS: METHYLPREDNISOLONE 40 MG INJ IV SCH ×3 (05:43→22:04)
[2019-03-13] MEDS: LEVALBUTEROL (NEB) 0.63 MG/3 ML AMP HHN SCH ×3 (07:35→19:25)
[2019-03-13] MEDS: MIDODRINE 5 MG TAB PO SCH ×3 (08:23→21:00)
[2019-03-13] MEDS: ASCORBIC ACID 500 MG TAB PO SCH (08:23)
[2019-03-13] MEDS: MULTIVITAMINS THERAPEUTIC TAB PO SCH (08:23)
[2019-03-13] MEDS: SENNA TAB PO SCH ×2 (08:23→21:00)
[2019-03-13] MEDS: QUETIAPINE 25 MG TAB PO SCH ×2 (08:23→21:00)
[2019-03-13] MEDS: LACTOBACILLUS RHAMNOSUS CAP PO SCH (08:23)
[2019-03-13] MEDS: BENZTROPINE 1 MG TAB PO SCH ×2 (08:23→21:00)
[2019-03-13] MEDS: FOLIC ACID 1 MG TAB PO SCH (08:23)
[2019-03-13] MEDS: DOCUSATE SODIUM 100 MG CAP PO SCH ×2 (08:23→21:00)
[2019-03-13] MEDS: BALSAM PERU/CASTOR OIL 60 GM TUBE TOP SCH (08:58)
[2019-03-13] MEDS: COLLAGENASE 5 GM (UD JAR) TOP SCH (08:58)
[2019-03-13] MEDS: CEFEPIME 1GM/50 ML (PMX) 50 ML IV SCH ×2 (08:58→22:04)
[2019-03-13] MEDS: ENOXAPARIN 40 MG/0.4 ML SYG SC SCH (09:32)
[2019-03-13] MEDS: DEXTROSE 5%-0.45% NACL 1,000 ML IV SCH (11:57)
--- NOTE | 2019-03-13 14:25 | PN ---
DATE: 03/13/2019 SUBJECTIVE: Chart reviewed. Events noted. The patient is currently on room air saturating 97% and does not appear in acute distress. PHYSICAL EXAMINATION: VITAL SIGNS: Blood pressure 115/60, pulse 94, respirations 36, temperature 97.7. HEENT: Pupils are equal and react to light. NECK: Supple, no JVD noted, no cervical adenopathy noted. LUNGS: Scattered rhonchi bilaterally and decreased breath sounds at the bases. CARDIOVASCULAR: S1, S2 normal. ABDOMEN: Soft, nontender, no organomegaly or masses noted. EXTREMITIES: No clubbing or cyanosis noted. NEUROLOGIC: No changes. LABORATORY DATA: WBC 9.1, hemoglobin 10.8, hematocrit 32.8, platelets 446. Sodium 141, potassium 4. 4, chloride 100, CO2 of 25, BUN 25, creatinine 0.48, glucose 158. ABG yesterday showed a pH of 7.43, pCO2 of 34, pO2 of 84. IMPRESSION: 1. Aspiration pneumonia. 2. History of Down syndrome. 3. Acute hypoxemic respiratory failure. RECOMMENDATIONS: 1. Continue antibiotics. 2. Aspiration precaution. 3. Oxygen if necessary. 4. Followup labs and x-ray. Dictated By: SHARI MUNGUIA MD, MA/JEFFREY Conf#: [id number] DID#: [id number] CC: MANDO LUCAS MD;*EndCC*
--- NOTE | 2019-03-13 16:00 | PN ---
Date/Time of Note Date/Time of Note DATE: 03/13/19 TIME: 15:54 Assessment/Plan VTE Prophylaxis Risk score (from Ns)>0 risk: 5 SCD applied (from Ns): Yes Pharmacological prophylaxis: LMWH Lines/Catheters IV Catheter Type (from Nrs): Saline Lock Urinary Cath still in place: Yes Reason Cath still needed: urinary retention Assessment/Plan Assessment/Plan 1. Sepsis secondary to right sided pneumonia and UTI - improving. WBC normalized and remains afebrile - ID on board and appreciate recommendations. - Lactic acid normal. 2. Bilateral pneumonia - CXR showing diffuse right sided and left lower PNA. desaturated last night but improved this am after neb tx. - Pulmonology consultation appreciated - Speech evaluation appreciated and not ready for PO intake at this time 3. UTI - UA noted - urine culture growing proteus - IV antibiotics on board 4. Anemia - hgb stable - no verito bleeding appreciated 5. Downs syndrom - continue home medications - ativan PRN for agitation 6. Disposition - Speech recommending NPO for now and will reevaluate in the next day or so. Continue treatment for PNA and UTI Result Diagram: 03/13/19 0538 03/13/19 0538 Results 24hrs Laboratory Tests Test 03/13/19 05:38 White Blood Count 9.1 # Red Blood Count 3.67 L Hemoglobin 10.8 L Hematocrit 32.8 L Mean Corpuscular Volume 89.4 Mean Corpuscular Hemoglobin 29.4 Mean Corpuscular Hemoglobin Concent 32.9 Red Cell Distribution Width 18.0 H Platelet Count 446 H Mean Platelet Volume 9.2 Immature Granulocytes % 1.200 H Neutrophils % 83.8 H Lymphocytes % 13.6 L Monocytes % 1.3 Eosinophils % 0.0 Basophils % 0.1 Nucleated Red Blood Cells % 0.0 Immature Granulocytes # 0.110 H Neutrophils # 7.6 H Lymphocytes # 1.2 Monocytes # 0.1 L Eosinophils # 0.0 Basophils # 0.0 Nucleated Red Blood Cells # 0.0 Sodium Level 141 Potassium Level 4.4 Chloride Level 108 Carbon Dioxide Level 25 Anion Gap 8 Blood Urea Nitrogen 25 H Creatinine 0.48 L Glucose Level 158 Calcium Level 9.5 Phosphorus Level 4.2 Magnesium Level 1.9 Albumin 2.8 L Subjective 24 Hr Interval Summary Free Text/Dictation Patient still pulling at line. Doing well on room air. no acute overnight events. Exam/Review of Systems Exam Vitals Vital Signs Date Temp Pulse Resp B/P (MAP) Pulse Ox O2 O2 Flow FiO2 Time Delivery Rate 03/13/19 97.8 108 28 106/68 95 Room Air 15:26 (81) 03/13/19 21 14:56 03/12/19 10.0 21:00 Intake and Output 03/12/19 03/12/19 03/13/19 1515:00 23:00 07:00 IntakeIntake Total 50 ml OutputOutput Total 950 ml 650 ml BalanceBalance -900 ml -650 ml Exam General: Patient is laying in bed, dry mucous membranes, Eyes: sunken with whitened pupils Neck: Supple Chest: nontender Lungs: Diminished diffusely, crackles appreciated. No wheezing Heart: Normal S1-S2, Regular rhythm, tachycardia. systolic murmur Abdomen: Soft , nontender, nondistended , bowel sounds are present. Extremities: contracture of lower extremities, muscle wasting UE and LE b/l. no cyanosis, clubbing, or edema Results Results 24hrs Laboratory Tests Test 03/13/19 05:38 White Blood Count 9.1 # Red Blood Count 3.67 L Hemoglobin 10.8 L Hematocrit 32.8 L Mean Corpuscular Volume 89.4 Mean Corpuscular Hemoglobin 29.4 Mean Corpuscular Hemoglobin Concent 32.9 Red Cell Distribution Width 18.0 H Platelet Count 446 H Mean Platelet Volume 9.2 Immature Granulocytes % 1.200 H Neutrophils % 83.8 H Lymphocytes % 13.6 L Monocytes % 1.3 Eosinophils % 0.0 Basophils % 0.1 Nucleated Red Blood Cells % 0.0 Immature Granulocytes # 0.110 H Neutrophils # 7.6 H Lymphocytes # 1.2 Monocytes # 0.1 L Eosinophils # 0.0 Basophils # 0.0 Nucleated Red Blood Cells # 0.0 Sodium Level 141 Potassium Level 4.4 Chloride Level 108 Carbon Dioxide Level 25 Anion Gap 8 Blood Urea Nitrogen 25 H Creatinine 0.48 L Glucose Level 158 Calcium Level 9.5 Phosphorus Level 4.2 Magnesium Level 1.9 Albumin 2.8 L Medications Medication Current Medications Acetaminophen/ Codeine Phosphate (Tylenol No.3) 1 tab Q8H PRN PO PAIN LEVEL 1- 06/10; Start 03/11/19 at 14:30 Alprazolam (Xanax) 0.5 mg Q8H PRN PO ANXIETY; Start 03/11/19 at 14:30 Ascorbic Acid (Vitamin C) 500 mg DAILY PO ; Start 03/12/19 at 09:00 Benztropine Mesylate (Cogentin) 1 mg Q12H PO ; Start 03/11/19 at 21:00 Docusate Sodium (Colace) 100 mg BID PO ; Start 03/11/19 at 21:00 Folic Acid (Folic Acid) 1 mg DAILY PO ; Start 03/12/19 at 09:00 Midodrine (Proamatine) 5 mg TID PO ; Start 03/11/19 at 21:00 Octreotide Acetate (Sandostatin) 50 mcg QHS SC Last administered on 03/12/19at 23:03; Admin Dose 50 MCG; Start 03/11/19 at 21:00 Quetiapine Fumarate (Seroquel) 50 mg BID PO ; Start 03/11/19 at 21:00 Senna (Senokot) 2 tab BID PO ; Start 03/11/19 at 21:00 IV Flush (NS 3 ml) 3 ml PER PROTOCOL IV ; Start 03/11/19 at 14:30 Ondansetron HCl (Zofran Inj) 4 mg Q6H PRN IV NAUSEA/VOMITING; Start 03/11/19 at 14:30 Acetaminophen (Tylenol Tab) 650 mg Q6H PRN PO .PAIN 1-3 OR TEMP; Start 03/11/19 at 14:30 Enoxaparin Sodium (Lovenox) 40 mg DAILY SC Last administered on 03/13/19at 09:32; Admin Dose 40 MG; Start 03/12/19 at 09:00 Cefepime HCl 50 ml @ 100 mls/hr Q12 IV Last administered on 03/13/19at 08:58; Admin Dose 100 MLS/HR; Start 03/11/19 at 21:00 Albuterol/ Ipratropium (Duoneb) 3 ml Q2H RESP THERAPY PRN NEB SHORTNESS OF BREATH Last administered on 03/12/19at 00:23; Admin Dose 3 ML; Start 03/11/19 at 14:30 Acetaminophen (Tylenol Supp) 650 mg Q4H PRN [place] MILD PAIN(1-3) OR TEMP>38C; Start 03/11/19 at 15:00 Multivitamins Therapeutic (Theragran) 1 tab DAILY PO ; Start 03/12/19 at 09:00 Lactobacillus Acidophilus/ Rhamnosus (Culturelle) 1 cap DAILY PO ; Start 03/12/19 at 09:00 Pantoprazole (Protonix Iv) 40 mg DAILY@06 IV Last administered on 03/13/19 05:43; Admin Dose 40 MG; Start 03/12/19 at 06:00 Lorazepam (Ativan) 1 mg Q4H PRN IV AGITATION Last administered on 03/12/19 20:53; Admin Dose 1 MG; Start 03/12/19 at 09:30 Ketorolac Tromethamine (Toradol) 15 mg Q6H PRN IV PAIN LEVEL 1-3; Start 03/12/19 at 09:00; Stop 03/15/19 at 08:59 Morphine Sulfate (morphine) 0.5 mg Q4H PRN IV SEVERE PAIN LEVEL 7-10; Start 03/12/19 at 09:00 Methylprednisolone Sodium Succinate (Solu-Medrol) 40 mg Q8 IV Last administered on 03/13/19 14:52; Admin Dose 40 MG; Start 03/12/19 at 11:00 Petrolatum (Vaseline) 1 applic BID PRN TOP DRY MOUTH Last administered on 03/12/19 10:36; Admin Dose 1 APPLIC; Start 03/12/19 at 10:00 Collagenase (Santyl) 1 applic DAILY TOP Last administered on 03/13/19 08:58; Admin Dose 1 APPLIC; Start 03/12/19 at 14:00 Levalbuterol (Xopenex Neb) 0.63 mg Q6HWA RESP THERAPY HHN Last administered on 03/13/19 14:56; Admin Dose 0.63 MG; Start 03/12/19 at 20:00 Dextrose/Sodium Chloride 1,000 ml @ 50 mls/hr Q20H IV Last administered on 03/13/19 11:57; Admin Dose 50 MLS/HR; Start 03/13/19 at 12:00 MANDO LUCAS MD Mar 13, 2019 16:00
--- NOTE | 2019-03-13 17:27 | CONS ---
Consultation Date/Type/Reason Admit Date/Time Mar 11, 2019 at 14:30 Initial Consult Date Type of Consult SUBJECTIVE: Patient is awake, noncommunicative, resting in bed. No fevers. VS: stable T: 96.8 LABS: Reviewed. C- 9.1 Microbiology: Blood cultures negative urine culture growing gram-negative rods MRSA SCREEN Final No methicillin resistant staphylococcus aureus isolated BLOOD CULTURE Preliminary NO GROWTH AFTER 2 DAYS --URINE CULTURE Final Organism 1 PROTEUS MIRABILIS COLONY COUNT >100,000 CFU/ml P. MIRAB M.I.C. RX --------- --- AMPICILLIN <=2 S CEFOTAXIME S CIPROFLOXACIN <=0.25 S GENTAMICIN <=1 S LEVOFLOXACIN <=0.12 S NITROFURANTOIN 128 R TOBRAMYCIN <=1 S TRIMETHOPRIM/SULFAMETHOXAZOLE <=20 S -- Chest x-ray from 03/12/19 noted. ANTIBIOTICS: Cefepime and Vanco Physical examination: GEN: This is a chronically ill-appearing middle-aged man who is in no distress HENT: head atraumatic normocephalic; neck is supple PULM: chest rise symmetrical breath sounds diminished to bases Heart: S1-S2 Abdomen: soft, bowel sounds hypoactive Extremities without cyanosis Skin: patient has multiple chronic wounds one on the sacrum is healed to the other one on his hip is open Assessment: 1. Sepsis, present on admission 2. Healthcare associated pneumonia, possibly aspirated 3. Urinary tract infection, gram-negative rods 4. Chronic wounds 5. Down syndrome Plan: Pt is stable. Continue IV Vanco and Cefepime. Final cultures noted. Aspiration precautions and local wound care. Date/Time of Note DATE: 03/13/19 TIME: 17:11 Exam/Review of Systems Exam Vitals Vital Signs Date Temp Pulse Resp B/P (MAP) Pulse Ox O2 O2 Flow FiO2 Time Delivery Rate 03/13/19 96.8 98 18 104/60 96 Room Air 16:00 (75) 03/13/19 21 14:56 03/12/19 10.0 21:00 Intake and Output 03/12/19 03/12/19 03/13/19 1515:00 23:00 07:00 IntakeIntake Total 50 ml OutputOutput Total 950 ml 650 ml BalanceBalance -900 ml -650 ml Results Result Diagram: 03/13/19 0538 03/13/19 0538 Results 24hrs Laboratory Tests Test 03/13/19 05:38 White Blood Count 9.1 # Red Blood Count 3.67 L Hemoglobin 10.8 L Hematocrit 32.8 L Mean Corpuscular Volume 89.4 Mean Corpuscular Hemoglobin 29.4 Mean Corpuscular Hemoglobin Concent 32.9 Red Cell Distribution Width 18.0 H Platelet Count 446 H Mean Platelet Volume 9.2 Immature Granulocytes % 1.200 H Neutrophils % 83.8 H Lymphocytes % 13.6 L Monocytes % 1.3 Eosinophils % 0.0 Basophils % 0.1 Nucleated Red Blood Cells % 0.0 Immature Granulocytes # 0.110 H Neutrophils # 7.6 H Lymphocytes # 1.2 Monocytes # 0.1 L Eosinophils # 0.0 Basophils # 0.0 Nucleated Red Blood Cells # 0.0 Sodium Level 141 Potassium Level 4.4 Chloride Level 108 Carbon Dioxide Level 25 Anion Gap 8 Blood Urea Nitrogen 25 H Creatinine 0.48 L Glucose Level 158 Calcium Level 9.5 Phosphorus Level 4.2 Magnesium Level 1.9 Albumin 2.8 L Medications Medication Current Medications Acetaminophen/ Codeine Phosphate (Tylenol No.3) 1 tab Q8H PRN PO PAIN LEVEL 1- 1010; Start 03/11/19 at 14:30 Alprazolam (Xanax) 0.5 mg Q8H PRN PO ANXIETY; Start 03/11/19 at 14:30 Ascorbic Acid (Vitamin C) 500 mg DAILY PO ; Start 03/12/19 at 09:00 Benztropine Mesylate (Cogentin) 1 mg Q12H PO ; Start 03/11/19 at 21:00 Docusate Sodium (Colace) 100 mg BID PO ; Start 03/11/19 at 21:00 Folic Acid (Folic Acid) 1 mg DAILY PO ; Start 03/12/19 at 09:00 Midodrine (Proamatine) 5 mg TID PO ; Start 03/11/19 at 21:00 Octreotide Acetate (Sandostatin) 50 mcg QHS SC Last administered on 03/12/19at 23:03; Admin Dose 50 MCG; Start 03/11/19 at 21:00 Quetiapine Fumarate (Seroquel) 50 mg BID PO ; Start 03/11/19 at 21:00 Senna (Senokot) 2 tab BID PO ; Start 03/11/19 at 21:00 IV Flush (NS 3 ml) 3 ml PER PROTOCOL IV ; Start 03/11/19 at 14:30 Ondansetron HCl (Zofran Inj) 4 mg Q6H PRN IV NAUSEA/VOMITING; Start 03/11/19 at 14:30 Acetaminophen (Tylenol Tab) 650 mg Q6H PRN PO .PAIN 1-3 OR TEMP; Start 03/11/19 at 14:30 Enoxaparin Sodium (Lovenox) 40 mg DAILY SC Last administered on 03/13/19at 09:32; Admin Dose 40 MG; Start 03/12/19 at 09:00 Cefepime HCl 50 ml @ 100 mls/hr Q12 IV Last administered on 03/13/19at 08:58; Admin Dose 100 MLS/HR; Start 03/11/19 at 21:00 Albuterol/ Ipratropium (Duoneb) 3 ml Q2H RESP THERAPY PRN NEB SHORTNESS OF BREATH Last administered on 03/12/19at 00:23; Admin Dose 3 ML; Start 03/11/19 at 14:30 Acetaminophen (Tylenol Supp) 650 mg Q4H PRN [place] MILD PAIN(1-3) OR TEMP>38C; Start 03/11/19 at 15:00 Multivitamins Therapeutic (Theragran) 1 tab DAILY PO ; Start 03/12/19 at 09:00 Lactobacillus Acidophilus/ Rhamnosus (Culturelle) 1 cap DAILY PO ; Start 03/12/19 at 09:00 Pantoprazole (Protonix Iv) 40 mg DAILY@06 IV Last administered on 03/13/19 05: 43; Admin Dose 40 MG; Start 03/12/19 at 06:00 Lorazepam (Ativan) 1 mg Q4H PRN IV AGITATION Last administered on 03/12/19 20:53; Admin Dose 1 MG; Start 03/12/19 at 09:30 Ketorolac Tromethamine (Toradol) 15 mg Q6H PRN IV PAIN LEVEL 1-3; Start 03/12/19 at 09:00; Stop 03/15/19 at 08:59 Morphine Sulfate (morphine) 0.5 mg Q4H PRN IV SEVERE PAIN LEVEL 7-10; Start 03/12/19 at 09:00 Methylprednisolone Sodium Succinate (Solu-Medrol) 40 mg Q8 IV Last administered on 03/13/19 14:52; Admin Dose 40 MG; Start 03/12/19 at 11:00 Petrolatum (Vaseline) 1 applic BID PRN TOP DRY MOUTH Last administered on 10:36; Admin Dose 1 APPLIC; Start 03/12/19 at 10:00 Collagenase (Santyl) 1 applic DAILY TOP Last administered on 03/13/19 08:58; Admin Dose 1 APPLIC; Start 03/12/19 at 14:00 Levalbuterol (Xopenex Neb) 0.63 mg Q6HWA RESP THERAPY HHN Last administered on 03/13/19 14:56; Admin Dose 0.63 MG; Start 03/12/19 at 20:00 Dextrose/Sodium Chloride 1,000 ml @ 50 mls/hr Q20H IV Last administered on 03/13/19 11:57; Admin Dose 50 MLS/HR; Start 03/13/19 at 12:00 EDGAR SCHWAB Mar 13, 2019 17:21
[2019-03-13] MEDS: OCTREOTIDE 50 MCG INJ SC SCH (22:04)
[2019-03-14] VITALS (12 sets, daily range): BP systolic 106–143; BP diastolic 61–87; PULSE 54–89; RESP 18–24
[2019-03-14] MEDS: DEXTROSE 5%-0.45% NACL 1,000 ML IV SCH (00:05)
[2019-03-14] MEDS: LEVALBUTEROL (NEB) 0.63 MG/3 ML AMP HHN SCH ×3 (08:36→21:20)
[2019-03-14] MEDS: ALBUTEROL/IPRATROPIUM (NEB) 3 ML AMP NEB PRN (08:37)
[2019-03-14] MEDS: BENZTROPINE 1 MG TAB PO SCH ×2 (09:00→20:01)
[2019-03-14] MEDS: FOLIC ACID 1 MG TAB PO SCH (09:00)
[2019-03-14] MEDS: SENNA TAB PO SCH ×2 (09:00→20:02)
[2019-03-14] MEDS: QUETIAPINE 25 MG TAB PO SCH ×2 (09:00→20:02)
[2019-03-14] MEDS: ASCORBIC ACID 500 MG TAB PO SCH (09:00)
[2019-03-14] MEDS: COLLAGENASE 5 GM (UD JAR) TOP SCH (09:00)
[2019-03-14] MEDS: MIDODRINE 5 MG TAB PO SCH ×3 (09:00→20:02)
[2019-03-14] MEDS: LACTOBACILLUS RHAMNOSUS CAP PO SCH (09:00)
[2019-03-14] MEDS: DOCUSATE SODIUM 100 MG CAP PO SCH ×2 (09:00→20:02)
[2019-03-14] MEDS: MULTIVITAMINS THERAPEUTIC TAB PO SCH (09:00)
[2019-03-14] MEDS: BALSAM PERU/CASTOR OIL 60 GM TUBE TOP SCH ×2 (09:19→20:05)
[2019-03-14] MEDS: ENOXAPARIN 40 MG/0.4 ML SYG SC SCH (10:22)
--- NOTE | 2019-03-14 10:29 | PN ---
Date/Time of Note Date/Time of Note DATE: 03/14/19 TIME: 10:22 Assessment/Plan VTE Prophylaxis Risk score (from Ns)>0 risk: 5 SCD applied (from Ns): Yes Pharmacological prophylaxis: LMWH Lines/Catheters IV [facility]from [facility] Saline Lock Urinary Cath still in place: Yes Reason Cath still needed: urinary retention Assessment/Plan Assessment/Plan 1. Sepsis secondary to right sided pneumonia and UTI - remains afebrile with nl WBC - ID on board and appreciate recommendations - CXR still with significant pneumonia - improving. WBC normalized and remains afebrile - ID on board and appreciate recommendations. - Lactic acid normal. 2. Bilateral pneumonia - Pulmonology consultation appreciated - Speech evaluation appreciated and not ready for PO intake at this time. Recommending giving lungs time to heal then will need video swallow evaluation 3. UTI - UA noted - urine culture growing proteus - IV antibiotics on board 4. Anemia - hgb stable - no verito bleeding appreciated 5. Downs syndrome - continue home medications - ativan PRN for agitation 6. Disposition - Continue IV antibiotics and keep NPO for now. Speech on board and will reassess today to see if appropriate for PO intake Result Diagram: 03/14/19 0534 03/14/19 0534 Results 24hrs Laboratory Tests Test 03/14/19 05:34 White Blood Count 5.8 # Red Blood Count 3.98 L Hemoglobin 11.5 L Hematocrit 36.6 L Mean Corpuscular Volume 92.0 Mean Corpuscular Hemoglobin 28.9 L Mean Corpuscular Hemoglobin Concent 31.4 L Red Cell Distribution Width 17.8 H Platelet Count 438 H Mean Platelet Volume 9.1 Immature Granulocytes % 1.700 H Neutrophils % 74.8 Lymphocytes % 20.3 Monocytes % 3.0 Eosinophils % 0.0 Basophils % 0.2 Nucleated Red Blood Cells % 0.0 Immature Granulocytes # 0.100 H Neutrophils # 4.3 Lymphocytes # 1.2 Monocytes # 0.2 L Eosinophils # 0.0 Basophils # 0.0 Nucleated Red Blood Cells # 0.0 Sodium Level 139 Potassium Level 4.9 Chloride Level 106 Carbon Dioxide Level 29 Anion Gap 4 L Blood Urea Nitrogen 28 H Creatinine 0.57 L Glucose Level 162 Calcium Level 9.4 Phosphorus Level 3.5 Magnesium Level 2.1 Albumin 2.9 L Subjective 24 Hr Interval Summary Free Text/Dictation Patient remains stable but still pulling at lines and catheter. No acute overnight events. Exam/Review of Systems Exam Vitals Vital Signs Date Temp Pulse Resp B/P (MAP) Pulse Ox O2 O2 Flow FiO2 Time Delivery Rate 03/14/19 56 20 99 21 08:52 03/14/19 Room Air 08:05 03/14/19 98.0 126/65 07:19 (85) 03/12/19 10.0 21:00 Intake and Output 03/13/19 03/13/19 03/14/19 1515:00 23:00 07:00 IntakeIntake Total 50 ml 1000 ml OutputOutput Total 350 ml 300 ml BalanceBalance -300 ml 700 ml Exam General: Patient is laying in bed, dry mucous membranes, moving around in bed Eyes: sunken in with whitened pupils Neck: Supple Chest: nontender Lungs: Diminished diffusely, crackles appreciated, worse on R. No wheezing Heart: Normal S1-S2, Regular rhythm, tachycardia. systolic murmur Abdomen: Soft , nontender, nondistended , bowel sounds are present. Extremities: contracture of lower extremities, muscle wasting UE and LE b/l. no cyanosis, clubbing, or edema Results Results 24hrs Laboratory Tests Test 03/14/19 05:34 White Blood Count 5.8 # Red Blood Count 3.98 L Hemoglobin 11.5 L Hematocrit 36.6 L Mean Corpuscular Volume 92.0 Mean Corpuscular Hemoglobin 28.9 L Mean Corpuscular Hemoglobin Concent 31.4 L Red Cell Distribution Width 17.8 H Platelet Count 438 H Mean Platelet Volume 9.1 Immature Granulocytes % 1.700 H Neutrophils % 74.8 Lymphocytes % 20.3 Monocytes % 3.0 Eosinophils % 0.0 Basophils % 0.2 Nucleated Red Blood Cells % 0.0 Immature Granulocytes # 0.100 H Neutrophils # 4.3 Lymphocytes # 1.2 Monocytes # 0.2 L Eosinophils # 0.0 Basophils # 0.0 Nucleated Red Blood Cells # 0.0 Sodium Level 139 Potassium Level 4.9 Chloride Level 106 Carbon Dioxide Level 29 Anion Gap 4 L Blood Urea Nitrogen 28 H Creatinine 0.57 L Glucose Level 162 Calcium Level 9.4 Phosphorus Level 3.5 Magnesium Level 2.1 Albumin 2.9 L Medications Medication Current Medications Acetaminophen/ Codeine Phosphate (Tylenol No.3) 1 tab Q8H PRN PO PAIN LEVEL 1-10/10; Start 03/11/19 at 14:30 Alprazolam (Xanax) 0.5 mg Q8H PRN PO ANXIETY; Start 03/11/19 at 14:30 Ascorbic Acid (Vitamin C) 500 mg DAILY PO ; Start 03/12/19 at 09:00 Benztropine Mesylate (Cogentin) 1 mg Q12H PO ; Start 03/11/19 at 21:00 Docusate Sodium (Colace) 100 mg BID PO ; Start 03/11/19 at 21:00 Folic Acid (Folic Acid) 1 mg DAILY PO ; Start 03/12/19 at 09:00 Midodrine (Proamatine) 5 mg TID PO ; Start 03/11/19 at 21:00 Octreotide Acetate (Sandostatin) 50 mcg QHS SC Last administered on 03/13/19at 22:04; Admin Dose 50 MCG; Start 03/11/19 at 21:00 Quetiapine Fumarate (Seroquel) 50 mg BID PO ; Start 03/11/19 at 21:00 Senna (Senokot) 2 tab BID PO ; Start 03/11/19 at 21:00 IV Flush (NS 3 ml) 3 ml PER PROTOCOL IV ; Start 03/11/19 at 14:30 Ondansetron HCl (Zofran Inj) 4 mg Q6H PRN IV NAUSEA/VOMITING; Start 03/11/19 at 14:30 Acetaminophen (Tylenol Tab) 650 mg Q6H PRN PO .PAIN 1-3 OR TEMP; Start 03/11/19 at 14:30 Enoxaparin Sodium (Lovenox) 40 mg DAILY SC Last administered on 03/13/19at 0 9:32; Admin Dose 40 MG; Start 03/12/19 at 09:00 Cefepime HCl 50 ml @ 100 mls/hr Q12 IV Last administered on 03/13/19at 22:04; Admin Dose 100 MLS/HR; Start 03/11/19 at 21:00 Albuterol/ Ipratropium (Duoneb) 3 ml Q2H RESP THERAPY PRN NEB SHORTNESS OF BREATH Last administered on 03/14/19at 08:37; Admin Dose 3 ML; Start 03/11/19 at 14:30 Acetaminophen (Tylenol Supp) 650 mg Q4H PRN [place] MILD PAIN(1-3) OR TEMP>38C; Start 03/11/19 at 15:00 Multivitamins Therapeutic (Theragran) 1 tab DAILY PO ; Start 03/12/19 at 09:00 Lactobacillus Acidophilus/ Rhamnosus (Culturelle) 1 cap DAILY PO ; Start 03/12/19 at 09:00 Pantoprazole (Protonix Iv) 40 mg DAILY@06 IV Last administered on 03/13/19 05:43; Admin Dose 40 MG; Start 03/12/19 at 06:00 Lorazepam (Ativan) 1 mg Q4H PRN IV AGITATION Last administered on 03/12/19 20:53; Admin Dose 1 MG; Start 03/12/19 at 09:30 Ketorolac Tromethamine (Toradol) 15 mg Q6H PRN IV PAIN LEVEL 1-3; Start 03/12/19 at 09:00; Stop 03/15/19 at 08:59 Morphine Sulfate (morphine) 0.5 mg Q4H PRN IV SEVERE PAIN LEVEL 7-10; Start 03/12/19 at 09:00 Methylprednisolone Sodium Succinate (Solu-Medrol) 40 mg Q8 IV Last administered on 03/13/19at 22:04; Admin Dose 40 MG; Start 03/12/19 at 11:00 Petrolatum (Vaseline) 1 applic BID PRN TOP DRY MOUTH Last administered on 03/12/19 10:36; Admin Dose 1 APPLIC; Start 03/12/19 at 10:00 Collagenase (Santyl) 1 applic DAILY TOP Last administered on 03/13/19 08:58; Admin Dose 1 APPLIC; Start 03/12/19 at 14:00 Levalbuterol (Xopenex Neb) 0.63 mg Q6HWA RESP THERAPY HHN Last administered on 03/13/19 19:25; Admin Dose 0.63 MG; Start 03/12/19 at 20:00 Dextrose/Sodium Chloride 1,000 ml @ 50 mls/hr Q20H IV Last administered on 03/14/19at 00:05; Admin Dose 50 MLS/HR; Start 03/13/19 at 12:00 MANDO LUCAS MD Mar 14, 2019 10:29
[2019-03-14] MEDS: METHYLPREDNISOLONE 40 MG INJ IV SCH ×3 (11:01→21:46)
[2019-03-14] MEDS: PANTOPRAZOLE 40 MG INJ IV SCH (11:01)
[2019-03-14] MEDS: CEFEPIME 1GM/50 ML (PMX) 50 ML IV SCH ×2 (11:01→20:06)
--- NOTE | 2019-03-14 12:54 | CONS ---
Consultation Date/Type/Reason Admit Date/Time Mar 11, 2019 at 14:30 Initial Consult Date Type of Consult SUBJECTIVE: Patient is awake, noncommunicative, resting in bed. No fevers. VS: stable T: 97.0 LABS: Reviewed. WB C- 5.8 Microbiology: Blood cultures negative urine culture growing gram-negative rods MRSA SCREEN Final No methicillin resistant staphylococcus aureus isolated BLOOD CULTURE Preliminary NO GROWTH AFTER 2 DAYS --URINE CULTURE Final Organism 1 PROTEUS MIRABILIS COLONY COUNT >100,000 CFU/ml P. MIRAB M.I.C. RX --------- --- AMPICILLIN <=2 S CEFOTAXIME S CIPROFLOXACIN <=0.25 S GENTAMICIN <=1 S LEVOFLOXACIN <=0.12 S NITROFURANTOIN 128 R TOBRAMYCIN <=1 S TRIMETHOPRIM/SULFAMETHOXAZOLE <=20 S -- Chest x-ray from 03/12/19 noted. ANTIBIOTICS: Cefepime and Vanco Physical examination: GEN: This is a chronically ill-appearing middle-aged man who is in no distress HENT: head atraumatic normocephalic; neck is supple PULM: chest rise symmetrical breath sounds diminished to bases Heart: S1-S2 Abdomen: soft, bowel sounds hypoactive Extremities without cyanosis Skin: patient has multiple chronic wounds one on the sacrum is healed to the other one on his hip is open Assessment: 1. Sepsis, present on admission 2. Healthcare associated pneumonia, possibly aspirated 3. Urinary tract infection, gram-negative rods 4. Chronic wounds 5. Down syndrome Plan: Pt is stable. Continue IV Vanco and Cefepime. Final cultures noted. Aspiration precautions and local wound care. Date/Time of Note DATE: 03/14/19 TIME: 12:53 Exam/Review of Systems Exam Vitals Vital Signs Date Temp Pulse Resp B/P (MAP) Pulse Ox O2 O2 Flow FiO2 Time Delivery Rate 03/14/19 Room Air 12:18 03/14/19 97.0 89 24 126/61 96 11:47 (82) 03/14/19 21 08:52 03/12/19 10.0 21:00 Intake and Output 03/13/19 03/13/19 03/14/19 1515:00 23:00 07:00 IntakeIntake Total 50 ml 1000 ml OutputOutput Total 350 ml 300 ml BalanceBalance -300 ml 700 ml Results Result Diagram: 03/14/19 0534 03/14/19 0534 Results 24hrs Laboratory Tests Test 03/14/19 05:34 White Blood Count 5.8 # Red Blood Count 3.98 L Hemoglobin 11.5 L Hematocrit 36.6 L Mean Corpuscular Volume 92.0 Mean Corpuscular Hemoglobin 28.9 L Mean Corpuscular Hemoglobin Concent 31.4 L Red Cell Distribution Width 17.8 H Platelet Count 438 H Mean Platelet Volume 9.1 Immature Granulocytes % 1.700 H Neutrophils % 74.8 Lymphocytes % 20.3 Monocytes % 3.0 Eosinophils % 0.0 Basophils % 0.2 Nucleated Red Blood Cells % 0.0 Immature Granulocytes # 0.100 H Neutrophils # 4.3 Lymphocytes # 1.2 Monocytes # 0.2 L Eosinophils # 0.0 Basophils # 0.0 Nucleated Red Blood Cells # 0.0 Sodium Level 139 Potassium Level 4.9 Chloride Level 106 Carbon Dioxide Level 29 Anion Gap 4 L Blood Urea Nitrogen 28 H Creatinine 0.57 L Glucose Level 162 Calcium Level 9.4 Phosphorus Level 3.5 Magnesium Level 2.1 Albumin 2.9 L Medications Medication Current Medications Acetaminophen/ Codeine Phosphate (Tylenol No.3) 1 tab Q8H PRN PO PAIN LEVEL 1- 10; Start 03/11/19 at 14:30 Alprazolam (Xanax) 0.5 mg Q8H PRN PO ANXIETY; Start 03/11/19 at 14:30 Ascorbic Acid (Vitamin C) 500 mg DAILY PO ; Start 03/12/19 at 09:00 Benztropine Mesylate (Cogentin) 1 mg Q12H PO ; Start 03/11/19 at 21:00 Docusate Sodium (Colace) 100 mg BID PO ; Start 03/11/19 at 21:00 Folic Acid (Folic Acid) 1 mg DAILY PO ; Start 03/12/19 at 09:00 Midodrine (Proamatine) 5 mg TID PO ; Start 03/11/19 at 21:00 Octreotide Acetate (Sandostatin) 50 mcg QHS SC Last administered on 03/13/19at 22:04; Admin Dose 50 MCG; Start 03/11/19 at 21:00 Quetiapine Fumarate (Seroquel) 50 mg BID PO ; Start 03/11/19 at 21:00 Senna (Senokot) 2 tab BID PO ; Start 03/11/19 at 21:00 IV Flush (NS 3 ml) 3 ml PER PROTOCOL IV ; Start 03/11/19 at 14:30 Ondansetron HCl (Zofran Inj) 4 mg Q6H PRN IV NAUSEA/VOMITING; Start 03/11/19 at 14:30 Acetaminophen (Tylenol Tab) 650 mg Q6H PRN PO .PAIN 1-3 OR TEMP; Start 03/11/19 at 14:30 Enoxaparin Sodium (Lovenox) 40 mg DAILY SC Last administered on 03/14/19at 10:22; Admin Dose 40 MG; Start 03/12/19 at 09:00 Cefepime HCl 50 ml @ 100 mls/hr Q12 IV Last administered on 03/14/19at 11:01; Admin Dose 100 MLS/HR; Start 03/11/19 at 21:00 Albuterol/ Ipratropium (Duoneb) 3 ml Q2H RESP THERAPY PRN NEB SHORTNESS OF BREATH Last administered on 03/14/19at 08:37; Admin Dose 3 ML; Start 03/11/19 at 14:30 Acetaminophen (Tylenol Supp) 650 mg Q4H PRN [place] MILD PAIN(1-3) OR TEMP>38C; Start 03/11/19 at 15:00 Multivitamins Therapeutic (Theragran) 1 tab DAILY PO ; Start 03/12/19 at 09:00 Lactobacillus Acidophilus/ Rhamnosus (Culturelle) 1 cap DAILY PO ; Start 03/12/19 at 09:00 Pantoprazole (Protonix Iv) 40 mg DAILY@06 IV Last administered on 03/14/19 11:01; Admin Dose 40 MG; Start 03/12/19 at 06:00 Lorazepam (Ativan) 1 mg Q4H PRN IV AGITATION Last administered on 03/12/19 20:53; Admin Dose 1 MG; Start 03/12/19 at 09:30 Ketorolac Tromethamine (Toradol) 15 mg Q6H PRN IV PAIN LEVEL 1-3; Start 03/12/19 at 09:00; Stop 03/15/19 at 08:59 Morphine Sulfate (morphine) 0.5 mg Q4H PRN IV SEVERE PAIN LEVEL 7-10; Start 03/12/19 at 09:00 Methylprednisolone Sodium Succinate (Solu-Medrol) 40 mg Q8 IV Last administered on 03/14/19 11:01; Admin Dose 40 MG; Start 03/12/19 at 11:00 Petrolatum (Vaseline) 1 applic BID PRN TOP DRY MOUTH Last administered on 03/12/19 10:36; Admin Dose 1 APPLIC; Start 03/12/19 at 10:00 Collagenase (Santyl) 1 applic DAILY TOP Last administered on 03/13/19 08:58; Admin Dose 1 APPLIC; Start 03/12/19 at 14:00 Levalbuterol (Xopenex Neb) 0.63 mg Q6HWA RESP THERAPY HHN Last administered on 03/13/19 19:25; Admin Dose 0.63 MG; Start 03/12/19 at 20:00 Dextrose/Sodium Chloride 1,000 ml @ 50 mls/hr Q20H IV Last administered on 03/14/19 00:05; Admin Dose 50 MLS/HR; Start 03/13/19 at 12:00 EDGAR SCHWAB Mar 14, 2019 12:54
--- NOTE | 2019-03-14 17:03 | PN ---
DATE: 03/14/2019 SUBJECTIVE: Chart reviewed. The patient on room air saturating 96% and does not appear in acute dis tress. PHYSICAL EXAMINATION: VITAL SIGNS: Blood pressure 126/61, pulse 89, respirations 24, temperature 97. HEENT: Pupils are equal and react to light. NECK: Supple, no JVD noted. No cervical adenopathy noted. LUNGS: Fair breath sounds bilaterally. CARDIOVASCULAR: S1, S2 normal. ABDOMEN: Soft, nontender. No megaly or masses noted. EXTREMITIES: No clubbing or cyanosis noted. NEUROLOGIC: No changes. LABORATORY DATA: WBC 5.8, hemoglobin 11.5, hematocrit 36.6, platelets 438. Sodium 139, potassium 4. 9, chloride 106, CO2 29, BUN 28, creatinine 0.57, glucose 162. IMPRESSION: 1. Aspiration pneumonia. 2. History of Down syndrome. 3. Status post hypoxemic respiratory failure. RECOMMENDATIONS: 1. Continue antibiotics. 2. Follow up labs and x-ray. 3. Infectious disease recommendations noted. Dictated By: SHARI MUNGUIA MD, MA/JEFFREY Conf#: [id number] DID#: [id number] CC: MANDO LUCAS MD;*EndCC*
[2019-03-14] MEDS: OCTREOTIDE 50 MCG INJ SC SCH (20:06)
[2019-03-15] VITALS (10 sets, daily range): BP systolic 107–176; BP diastolic 62–85; PULSE 51–86; RESP 16–22
[2019-03-15] MEDS: DEXTROSE 5%-0.45% NACL 1,000 ML IV SCH ×2 (04:00→11:04)
[2019-03-15] MEDS: METHYLPREDNISOLONE 40 MG INJ IV SCH ×2 (05:18→20:24)
[2019-03-15] MEDS: PANTOPRAZOLE 40 MG INJ IV SCH (05:18)
[2019-03-15] MEDS: LEVALBUTEROL (NEB) 0.63 MG/3 ML AMP HHN SCH ×3 (07:53→20:39)
[2019-03-15] MEDS: CEFEPIME 1GM/50 ML (PMX) 50 ML IV SCH ×2 (08:55→20:24)
[2019-03-15] MEDS: DOCUSATE SODIUM 100 MG CAP PO SCH ×2 (08:56→20:25)
[2019-03-15] MEDS: LACTOBACILLUS RHAMNOSUS CAP PO SCH (08:56)
[2019-03-15] MEDS: MULTIVITAMINS THERAPEUTIC TAB PO SCH (08:57)
[2019-03-15] MEDS: FOLIC ACID 1 MG TAB PO SCH (08:57)
[2019-03-15] MEDS: ASCORBIC ACID 500 MG TAB PO SCH (08:57)
[2019-03-15] MEDS: SENNA TAB PO SCH ×2 (08:57→20:25)
[2019-03-15] MEDS: QUETIAPINE 25 MG TAB PO SCH ×2 (08:57→20:25)
[2019-03-15] MEDS: MIDODRINE 5 MG TAB PO SCH ×3 (08:57→21:00)
[2019-03-15] MEDS: BENZTROPINE 1 MG TAB PO SCH ×2 (09:00→20:25)
[2019-03-15] MEDS: ENOXAPARIN 40 MG/0.4 ML SYG SC SCH (09:01)
--- NOTE | 2019-03-15 09:57 | PN ---
Date/Time of Note Date/Time of Note DATE: 03/15/19 TIME: 09:57 Objective Vitals Vital Signs Date Temp Pulse Resp B/P (MAP) Pulse Ox O2 O2 Flow FiO2 Time Delivery Rate 03/15/19 62 18 98 21 07:53 03/15/19 98.0 127/62 07:15 (83) 03/14/19 Room Air 16:25 03/12/19 10.0 21:00 Intake and Output 03/14/19 03/14/19 03/15/19 1515:00 23:00 07:00 IntakeIntake Total 50 ml 500 ml OutputOutput Total 250 ml 300 ml BalanceBalance 50 ml 250 ml -300 ml Results Result Diagram: 03/15/19 0500 03/15/19 0500 Medications Medications Current Medications Acetaminophen/ Codeine Phosphate (Tylenol No.3) 1 tab Q8H PRN PO PAIN LEVEL 1- 10/10; Start 03/11/19 at 14:30 Alprazolam (Xanax) 0.5 mg Q8H PRN PO ANXIETY; Start 03/11/19 at 14:30 Ascorbic Acid (Vitamin C) 500 mg DAILY PO ; Start 03/12/19 at 09:00 Benztropine Mesylate (Cogentin) 1 mg Q12H PO ; Start 03/11/19 at 21:00 Docusate Sodium (Colace) 100 mg BID PO ; Start 03/11/19 at 21:00 Folic Acid (Folic Acid) 1 mg DAILY PO ; Start 03/12/19 at 09:00 Midodrine (Proamatine) 5 mg TID PO ; Start 03/11/19 at 21:00 Octreotide Acetate (Sandostatin) 50 mcg QHS SC Last administered on 03/14/19at 20:06; Admin Dose 50 MCG; Start 03/11/19 at 21:00 Quetiapine Fumarate (Seroquel) 50 mg BID PO ; Start 03/11/19 at 21:00 Senna (Senokot) 2 tab BID PO ; Start 03/11/19 at 21:00 IV Flush (NS 3 ml) 3 ml PER PROTOCOL IV ; Start 03/11/19 at 14:30 Ondansetron HCl (Zofran Inj) 4 mg Q6H PRN IV NAUSEA/VOMITING; Start 03/11/19 at 14:30 Acetaminophen (Tylenol Tab) 650 mg Q6H PRN PO .PAIN 1-3 OR TEMP; Start 03/11/19 at 14:30 Enoxaparin Sodium (Lovenox) 40 mg DAILY SC Last administered on 03/15/19 09:01; Admin Dose 40 MG; Start 03/12/19 at 09:00 Cefepime HCl 50 ml @ 100 mls/hr Q12 IV Last administered on 03/15/19 08:55; Admin Dose 100 MLS/HR; Start 03/11/19 at 21:00 Albuterol/ Ipratropium (Duoneb) 3 ml Q2H RESP THERAPY PRN NEB SHORTNESS OF BREATH Last administered on 03/14/19 08:37; Admin Dose 3 ML; Start 03/11/19 at 14:30 Acetaminophen (Tylenol Supp) 650 mg Q4H PRN [place] MILD PAIN(1-3) OR TEMP>38C; Start 03/11/19 at 15:00 Multivitamins Therapeutic (Theragran) 1 tab DAILY PO ; Start 03/12/19 at 09:00 Lactobacillus Acidophilus/ Rhamnosus (Culturelle) 1 cap DAILY PO ; Start 03/12/19 at 09:00 Pantoprazole (Protonix Iv) 40 mg DAILY@06 IV Last administered on 03/15/19 05:18; Admin Dose 40 MG; Start 03/12/19 at 06:00 Lorazepam (Ativan) 1 mg Q4H PRN IV AGITATION Last administered on 03/12/19 20:53; Admin Dose 1 MG; Start 03/12/19 at 09:30 Morphine Sulfate (morphine) 0.5 mg Q4H PRN IV SEVERE PAIN LEVEL 7-10; Start 03/12/19 at 09:00 Petrolatum (Vaseline) 1 applic BID PRN TOP DRY MOUTH Last administered on 03/12/19 10:36; Admin Dose 1 APPLIC; Start 03/12/19 at 10:00 Collagenase (Santyl) 1 applic DAILY TOP Last administered on 03/13/19 08:58; Admin Dose 1 APPLIC; Start 03/12/19 at 14:00 Levalbuterol (Xopenex Neb) 0.63 mg Q6HWA RESP THERAPY HHN Last administered on 03/15/19 07:53; Admin Dose 0.63 MG; Start 03/12/19 at 20:00 Dextrose/Sodium Chloride 1,000 ml @ 50 mls/hr Q20H IV Last administered on 03/14/19at 00:05; Admin Dose 50 MLS/HR; Start 03/13/19 at 12:00 Methylprednisolone Sodium Succinate (Solu-Medrol) 40 mg Q12 IV ; Start 03/15/19 at 21:00 VTE Prophylaxis Risk score (from Ns)>0 risk: 7 SCD applied (from [facility] [place]): No SCD contraindication: other Lines/Catheters IV Catheter Type: Sanabria in Place: No Assessment/Plan Hospital Course Subjective 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 Neurological: Moves all extremities spontaneously Skin: No new skin lesions Assessment/Plan 1. Sepsis secondary to right sided pneumonia and UTI - remains afebrile with nl WBC - ID on board and appreciate recommendations - CXR still with significant pneumonia - improving. WBC normalized and remains afebrile - ID on board and appreciate recommendations. - Lactic acid normal. 2. Bilateral pneumonia - Pulmonology consultation appreciated - Speech evaluation appreciated and not ready for PO intake at this time. Recommending giving lungs time to heal then will need video swallow evaluation 3. UTI - UA noted - urine culture growing proteus - IV antibiotics on board 4. Anemia - hgb stable - no verito bleeding appreciated 5. Downs syndrome - continue home medications - ativan PRN for agitation 6. Disposition -Follow-up with speech therapy recommendations, continue antibiotics, will try to taper down on steroids. DILIP ROBERTSON Mar 15, 2019 09:57
--- NOTE | 2019-03-15 10:58 | CONS ---
Consultation Date/Type/Reason Admit Date/Time Mar 11, 2019 at 14:30 Initial Consult Date Type of Consult Pulmonary/critical care Patient's condition is stable. Remains awake but noncommunicative. Has remained hemodynamically stable. Doing fairly well on room air. General exam; young male, awake, but noncommunicative. Currently in no distress. H EENT exam; supple neck, no JVD. No lymphadenopathy. Midline trachea. No thyromegaly. Patient is edentulous. There is bilateral significant ocular atrophy. Chest exam; crackles right lung. Left lung is clear. S1-S2 audible, no murmurs. Regular rhythm. Abdomen exam; soft, no organomegaly. Nontender. Bowel sounds audible. No scars are present. Extremity exam; no peripheral edema. 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 Assessment and recommendations; 1. Patient with history of dementia admitted with extensive right-sided pneumonia. Currently on cefepime. 2. Bilateral ocular atrophy. 3. Dehydration. 4. Possibly aspiration pneumonia. Continue current supportive care. Continue vancomycin with cefepime. Patient may require a swallow evaluation. May possibly require a G-tube placement. Obtain follow-up chest x-ray in 24 hours. Date/Time of Note DATE: 03/15/19 TIME: 10:56 Exam/Review of Systems Exam Vitals Vital Signs Date Temp Pulse Resp B/P (MAP) Pulse Ox O2 O2 Flow FiO2 Time Delivery Rate 03/15/19 97.9 86 18 113/71 95 Room Air 10:00 (85) 03/15/19 21 07:53 03/12/19 10.0 21:00 Intake and Output 03/14/19 03/14/19 03/15/19 1414:59 22:59 06:59 IntakeIntake Total 50 ml 500 ml OutputOutput Total 250 ml 300 ml BalanceBalance 50 ml 250 ml -300 ml Results Result Diagram: 03/15/19 0500 03/15/19 0500 Results 24hrs Laboratory Tests Test 03/15/19 05:00 White Blood Count 5.0 Red Blood Count 3.82 L Hemoglobin 11.3 L Hematocrit 34.9 L Mean Corpuscular Volume 91.4 Mean Corpuscular Hemoglobin 29.6 Mean Corpuscular Hemoglobin Concent 32.4 Red Cell Distribution Width 17.5 H Platelet Count 400 Mean Platelet Volume 9.5 Immature Granulocytes % 2.000 H Neutrophils % 68.7 Lymphocytes % 23.5 Monocytes % 5.6 Eosinophils % 0.0 Basophils % 0.2 Nucleated Red Blood Cells % 0.0 Immature Granulocytes # 0.100 H Neutrophils # 3.5 Lymphocytes # 1.2 Monocytes # 0.3 Eosinophils # 0.0 Basophils # 0.0 Nucleated Red Blood Cells # 0.0 Sodium Level 139 Potassium Level 4.2 Chloride Level 106 Carbon Dioxide Level 28 Anion Gap 5 Blood Urea Nitrogen 27 H Creatinine 0.51 L Glucose Level 159 Calcium Level 9.1 Phosphorus Level 3.3 Magnesium Level 2.1 Albumin 2.6 L Medications Medication Current Medications Acetaminophen/ Codeine Phosphate (Tylenol No.3) 1 tab Q8H PRN PO PAIN LEVEL 1- 06/10; Start 03/11/19 at 14:30 Alprazolam (Xanax) 0.5 mg Q8H PRN PO ANXIETY; Start 03/11/19 at 14:30 Ascorbic Acid (Vitamin C) 500 mg DAILY PO ; Start 03/12/19 at 09:00 Benztropine Mesylate (Cogentin) 1 mg Q12H PO ; Start 03/11/19 at 21:00 Docusate Sodium (Colace) 100 mg BID PO ; Start 03/11/19 at 21:00 Folic Acid (Folic Acid) 1 mg DAILY PO ; Start 03/12/19 at 09:00 Midodrine (Proamatine) 5 mg TID PO ; Start 03/11/19 at 21:00 Octreotide Acetate (Sandostatin) 50 mcg QHS SC Last administered on 03/14/19at 20:06; Admin Dose 50 MCG; Start 03/11/19 at 21:00 Quetiapine Fumarate (Seroquel) 50 mg BID PO ; Start 03/11/19 at 21:00 Senna (Senokot) 2 tab BID PO ; Start 03/11/19 at 21:00 IV Flush (NS 3 ml) 3 ml PER PROTOCOL IV ; Start 03/11/19 at 14:30 Ondansetron HCl (Zofran Inj) 4 mg Q6H PRN IV NAUSEA/VOMITING; Start 03/11/19 at 14:30 Acetaminophen (Tylenol Tab) 650 mg Q6H PRN PO .PAIN 1-3 OR TEMP; Start 03/11/19 at 14:30 Enoxaparin Sodium (Lovenox) 40 mg DAILY SC Last administered on 03/15/19 09:01; Admin Dose 40 MG; Start 03/12/19 at 09:00 Cefepime HCl 50 ml @ 100 mls/hr Q12 IV Last administered on 03/15/19 08:55; Admin Dose 100 MLS/HR; Start 03/11/19 at 21:00 Albuterol/ Ipratropium (Duoneb) 3 ml Q2H RESP THERAPY PRN NEB SHORTNESS OF BREATH Last administered on 03/14/19 08:37; Admin Dose 3 ML; Start 03/11/19 at 14:30 Acetaminophen (Tylenol Supp) 650 mg Q4H PRN [place] MILD PAIN(1-3) OR TEMP>38C; Start 03/11/19 at 15:00 Multivitamins Therapeutic (Theragran) 1 tab DAILY PO ; Start 03/12/19 at 09:00 Lactobacillus Acidophilus/ Rhamnosus (Culturelle) 1 cap DAILY PO ; Start 03/12/19 at 09:00 Pantoprazole (Protonix Iv) 40 mg DAILY@06 IV Last administered on 03/15/19 05:18; Admin Dose 40 MG; Start 03/12/19 at 06:00 Lorazepam (Ativan) 1 mg Q4H PRN IV AGITATION Last administered on 03/12/19 20:53; Admin Dose 1 MG; Start 03/12/19 at 09:30 Morphine Sulfate (morphine) 0.5 mg Q4H PRN IV SEVERE PAIN LEVEL 7-10; Start 03/12/19 at 09:00 Petrolatum (Vaseline) 1 applic BID PRN TOP DRY MOUTH Last administered on 03/12/19 10:36; Admin Dose 1 APPLIC; Start 03/12/19 at 10:00 Collagenase (Santyl) 1 applic DAILY TOP Last administered on 03/13/19 08:58; Admin Dose 1 APPLIC; Start 03/12/19 at 14:00 Levalbuterol (Xopenex Neb) 0.63 mg Q6HWA RESP THERAPY HHN Last administered on 03/15/19 07:53; Admin Dose 0.63 MG; Start 03/12/19 at 20:00 Dextrose/Sodium Chloride 1,000 ml @ 50 mls/hr Q20H IV Last administered on 7/14/19at 00:05; Admin Dose 50 MLS/HR; Start 03/13/19 at 12:00 Methylprednisolone Sodium Succinate (Solu-Medrol) 40 mg Q12 IV ; Start 03/15/19 at 21:00 MAEGAN REED Mar 15, 2019 10:58
[2019-03-15] MEDS ORDERED: VANCOMYCIN IV PER PHARMACY XX SCH (11:00)
[2019-03-15] MEDS: BALSAM PERU/CASTOR OIL 60 GM TUBE TOP SCH ×3 (11:06→20:26)
[2019-03-15] MEDS: COLLAGENASE 5 GM (UD JAR) TOP SCH (11:06)
[2019-03-15] MEDS ORDERED: VANCOMYCIN 1 GM 250 ML IVPB ONE (13:00)
--- NOTE | 2019-03-15 15:32 | CONS ---
Assessment/Plan Assessment/Plan Hospital Course (Demo Recall) No acute changes, patient looks comfortable, no fevers overnight Microbiology: Blood cultures negative urine culture grew Proteus Antimicrobials: Cefepime Chest x-ray this morning revealed left basilar infiltrates unchanged, instead extensive consolidations throughout the right lung, unchanged Physical examination: This is a chronically ill-appearing middle-aged man who is in no distress head atraumatic normocephalic neck is supple chest rise symmetrical breath sounds diminished to bases heart S1-S2 abdomen soft bowel sounds hypoactive extremities without cyanosis skin patient has multiple chronic wounds one on the sacrum is healed to the other one on his hip is open Assessment: 1. Sepsis, present on admission 2. Healthcare associated pneumonia, possibly aspirated 3. Urinary tract infection, gram-negative rods 4. Chronic wounds 5. Down's syndrome Plan: Remains unchanged and overall stable, continue antibiotics, anti- aspiration precautions Consultation Date/Type/Reason Admit Date/Time Mar 11, 2019 at 14:30 Initial Consult Date Type of Consult id Date/Time of Note DATE: 03/15/19 TIME: 15:31 Exam/Review of Systems Exam Vitals Vital Signs Date Temp Pulse Resp B/P (MAP) Pulse Ox O2 O2 Flow FiO2 Time Delivery Rate 03/15/19 69 18 97 21 13:27 03/15/19 98.0 115/82 11:37 (93) 03/15/19 Room Air 10:00 03/12/19 10.0 21:00 Intake and Output 03/14/19 03/14/19 03/15/19 1515:00 23:00 07:00 IntakeIntake Total 50 ml 500 ml OutputOutput Total 250 ml 300 ml BalanceBalance 50 ml 250 ml -300 ml Results Result Diagram: 03/15/19 0500 03/15/19 0500 Results 24hrs Laboratory Tests Test 03/15/19 05:00 White Blood Count 5.0 Red Blood Count 3.82 L Hemoglobin 11.3 L Hematocrit 34.9 L Mean Corpuscular Volume 91.4 Mean Corpuscular Hemoglobin 29.6 Mean Corpuscular Hemoglobin Concent 32.4 Red Cell Distribution Width 17.5 H Platelet Count 400 Mean Platelet Volume 9.5 Immature Granulocytes % 2.000 H Neutrophils % 68.7 Lymphocytes % 23.5 Monocytes % 5.6 Eosinophils % 0.0 Basophils % 0.2 Nucleated Red Blood Cells % 0.0 Immature Granulocytes # 0.100 H Neutrophils # 3.5 Lymphocytes # 1.2 Monocytes # 0.3 Eosinophils # 0.0 Basophils # 0.0 Nucleated Red Blood Cells # 0.0 Sodium Level 139 Potassium Level 4.2 Chloride Level 106 Carbon Dioxide Level 28 Anion Gap 5 Blood Urea Nitrogen 27 H Creatinine 0.51 L Glucose Level 159 Calcium Level 9.1 Phosphorus Level 3.3 Magnesium Level 2.1 Albumin 2.6 L Medications Medication Current Medications Acetaminophen/ Codeine Phosphate (Tylenol No.3) 1 tab Q8H PRN PO PAIN LEVEL 1- 10/10; Start 03/11/19 at 14:30 Alprazolam (Xanax) 0.5 mg Q8H PRN PO ANXIETY; Start 03/11/19 at 14:30 Ascorbic Acid (Vitamin C) 500 mg DAILY PO ; Start 03/12/19 at 09:00 Benztropine Mesylate (Cogentin) 1 mg Q12H PO ; Start 03/11/19 at 21:00 Docusate Sodium (Colace) 100 mg BID PO ; Start 03/11/19 at 21:00 Folic Acid (Folic Acid) 1 mg DAILY PO ; Start 03/12/19 at 09:00 Midodrine (Proamatine) 5 mg TID PO ; Start 03/11/19 at 21:00 Octreotide Acetate (Sandostatin) 50 mcg QHS SC Last administered on 03/14/19at 20:06; Admin Dose 50 MCG; Start 03/11/19 at 21:00 Quetiapine Fumarate (Seroquel) 50 mg BID PO ; Start 03/11/19 at 21:00 Senna (Senokot) 2 tab BID PO ; Start 03/11/19 at 21:00 IV Flush (NS 3 ml) 3 ml PER PROTOCOL IV ; Start 03/11/19 at 14:30 Ondansetron HCl (Zofran Inj) 4 mg Q6H PRN IV NAUSEA/VOMITING; Start 03/11/19 at 14:30 Acetaminophen (Tylenol Tab) 650 mg Q6H PRN PO .PAIN 1-3 OR TEMP; Start 03/11/19 at 14:30 Enoxaparin Sodium (Lovenox) 40 mg DAILY SC Last administered on 03/15/19at 09:01; Admin Dose 40 MG; Start 03/12/19 at 09:00 Cefepime HCl 50 ml @ 100 mls/hr Q12 IV Last administered on 03/15/19at 08:55; Admin Dose 100 MLS/HR; Start 03/11/19 at 21:00 Albuterol/ Ipratropium (Duoneb) 3 ml Q2H RESP THERAPY PRN NEB SHORTNESS OF BREATH Last administered on 03/14/19 08:37; Admin Dose 3 ML; Start 03/11/19 at 14:30 Acetaminophen (Tylenol Supp) 650 mg Q4H PRN [place] MILD PAIN(1-3) OR TEMP>38C; Start 03/11/19 at 15:00 Multivitamins Therapeutic (Theragran) 1 tab DAILY PO ; Start 03/12/19 at 09:00 Lactobacillus Acidophilus/ Rhamnosus (Culturelle) 1 cap DAILY PO ; Start 03/12/19 at 09:00 Pantoprazole (Protonix Iv) 40 mg DAILY@06 IV Last administered on 03/15/19 05:18; Admin Dose 40 MG; Start 03/12/19 at 06:00 Lorazepam (Ativan) 1 mg Q4H PRN IV AGITATION Last administered on 03/12/19 20:53; Admin Dose 1 MG; Start 03/12/19 at 09:30 Morphine Sulfate (morphine) 0.5 mg Q4H PRN IV SEVERE PAIN LEVEL 7-10; Start 03/12/19 at 09:00 Petrolatum (Vaseline) 1 applic BID PRN TOP DRY MOUTH Last administered on 03/12/19at 10:36; Admin Dose 1 APPLIC; Start 03/12/19 at 10:00 Collagenase (Santyl) 1 applic DAILY TOP Last administered on 03/15/19at 11:06; Admin Dose 1 APPLIC; Start 03/12/19 at 14:00 Levalbuterol (Xopenex Neb) 0.63 mg Q6HWA RESP THERAPY HHN Last administered on 03/15/19 13:27; Admin Dose 0.63 MG; Start 03/12/19 at 20:00 Dextrose/Sodium Chloride 1,000 ml @ 50 mls/hr Q20H IV Last administered on 03/15/19 11:04; Admin Dose 50 MLS/HR; Start 03/13/19 at 12:00 Methylprednisolone Sodium Succinate (Solu-Medrol) 40 mg Q12 IV ; Start 03/15/19 at 21:00 Vancomycin HCl (Vanco Iv Per Pharmacy) VANCOMYCIN PER PHARMACY PER PROTOCOL XX ; Start 03/15/19 at 11:00 Vancomycin/Sodium Chloride 250 ml @ 125 mls/hr Q12H IVPB ; Start 03/16/19 at 01:00 TANG ESQUEDA NP Mar 15, 2019 15:32
[2019-03-15] MEDS: OCTREOTIDE 50 MCG INJ SC SCH (22:04)
[2019-03-16] VITALS (7 sets, daily range): BP systolic 110–132; BP diastolic 72–87; PULSE 60–72; RESP 16–18
[2019-03-16] MEDS: VANCOMYCIN 750 MG (PMX) 250 ML IVPB SCH ×2 (00:35→12:47)
[2019-03-16] MEDS: PANTOPRAZOLE 40 MG INJ IV SCH (05:07)
[2019-03-16] MEDS: LEVALBUTEROL (NEB) 0.63 MG/3 ML AMP HHN SCH ×3 (07:50→20:51)
[2019-03-16] MEDS: MIDODRINE 5 MG TAB PO SCH ×3 (09:00→21:00)
[2019-03-16] MEDS: DOCUSATE SODIUM 100 MG CAP PO SCH ×2 (09:00→21:00)
[2019-03-16] MEDS: QUETIAPINE 25 MG TAB PO SCH ×2 (09:00→21:00)
[2019-03-16] MEDS: LACTOBACILLUS RHAMNOSUS CAP PO SCH (09:00)
[2019-03-16] MEDS: ASCORBIC ACID 500 MG TAB PO SCH (09:00)
[2019-03-16] MEDS: FOLIC ACID 1 MG TAB PO SCH (09:00)
[2019-03-16] MEDS: COLLAGENASE 5 GM (UD JAR) TOP SCH (09:00)
[2019-03-16] MEDS: MULTIVITAMINS THERAPEUTIC TAB PO SCH (09:00)
[2019-03-16] MEDS: BENZTROPINE 1 MG TAB PO SCH ×2 (09:00→21:00)
[2019-03-16] MEDS: SENNA TAB PO SCH ×2 (09:00→21:00)
[2019-03-16] MEDS: METHYLPREDNISOLONE 40 MG INJ IV SCH ×2 (09:53→21:39)
[2019-03-16] MEDS: CEFEPIME 1GM/50 ML (PMX) 50 ML IV SCH ×2 (09:54→21:36)
[2019-03-16] MEDS: BALSAM PERU/CASTOR OIL 60 GM TUBE TOP SCH ×3 (09:54→21:40)
[2019-03-16] MEDS: ENOXAPARIN 40 MG/0.4 ML SYG SC SCH (10:00)
--- NOTE | 2019-03-16 10:23 | CONS ---
Consultation Date/Type/Reason Admit Date/Time Mar 11, 2019 at 14:30 Initial Consult Date Type of Consult Pulmonary/critical care Patient's condition is stable. Remains awake but noncommunicative. Has remained hemodynamically stable. Doing fairly well on room air. General exam; young male, awake, but noncommunicative. Currently in no distress. H EENT exam; supple neck, no JVD. No lymphadenopathy. Midline trachea. No thyromegaly. Patient is edentulous. There is bilateral significant ocular atrophy. Chest exam; crackles right lung. Left lung is clear. S1-S2 audible, no murmurs. Regular rhythm. Abdomen exam; soft, no organomegaly. Nontender. Bowel sounds audible. No scars are present. Extremity exam; no peripheral edema. [employer] exam; patient awake but noncommunicative. Assessment and recommendations; 1. Patient with history of dementia admitted with extensive right-sided pneumonia. Currently on cefepime. 2. Bilateral ocular atrophy. 3. Dehydration. 4. Possibly aspiration pneumonia. Continue current supportive care. Continue vancomycin with cefepime. Patient may require a swallow evaluation. May possibly require a G-tube placement. Obtain follow-up chest x-ray in 24 hours. Date/Time of Note DATE: 03/16/19 TIME: 10:22 24 HR Interval Summary Free Text/Dictation Patient's condition is stable. Remains awake but noncommunicative. Has remained hemodynamically stable. Also exhibiting stable pulmonary status. General exam; young male, awake but noncommunicative. Currently no distress. H ENT exam; supple neck, no JVD. No lymphadenopathy. Midline trachea. No thyromegaly. Patient is edentulous. Has bilateral ocular atrophy. Chest exam; diminished but clear breath sounds. S1-S2 audible, no murmurs. Regular rhythm. Abdomen exam; soft, no organomegaly. Bowel sounds audible. Extremity exam; no peripheral edema clubbing. [employer] exam; patient remains awake but noncommunicative. Chest x-ray was reviewed from today which is showing marked improvement in extensive right-sided pneumonia. Assessment and recommendations; 1. Patient with history of dementia admitted with extensive right-sided pneumonia possibly aspiration with marked overall clinical and radiological improvement. Continue current supportive care. Consider placement of G-tube. Exam/Review of Systems Exam Vitals Vital Signs Date Temp Pulse Resp B/P (MAP) Pulse Ox O2 O2 Flow FiO2 Time Delivery Rate 03/16/19 98.0 60 18 117/74 98 07:56 (88) 03/16/19 21 07:50 03/16/19 Room Air 04:15 03/12/19 10.0 21:00 Intake and Output 03/15/19 03/15/19 03/16/19 1515:00 23:00 07:00 IntakeIntake Total 50 ml 800 ml 650 ml OutputOutput Total 350 ml 400 ml 700 ml BalanceBalance -300 ml 400 ml -50 ml Results Result Diagram: 03/16/19 0602 03/16/19 0603 Results 24hrs Laboratory Tests Test 03/16/19 06:02 03/16/19 06:03 White Blood Count 6.5 # Red Blood Count 3.76 L Hemoglobin 11.1 L Hematocrit 34.1 L Mean Corpuscular Volume 90.7 Mean Corpuscular Hemoglobin 29.5 Mean Corpuscular Hemoglobin Concent 32.6 Red Cell Distribution Width 17.2 H Platelet Count 352 Mean Platelet Volume 10.5 H Immature Granulocytes % 2.500 H Neutrophils % 67.4 Lymphocytes % 23.6 Monocytes % 6.2 Eosinophils % 0.0 Basophils % 0.3 Nucleated Red Blood Cells % 0.0 Immature Granulocytes # 0.160 H Neutrophils # 4.4 Lymphocytes # 1.5 Monocytes # 0.4 Eosinophils # 0.0 Basophils # 0.0 Nucleated Red Blood Cells # 0.0 Sodium Level 137 Potassium Level 4.0 Chloride Level 104 Carbon Dioxide Level 28 Anion Gap 5 Blood Urea Nitrogen 23 H Creatinine 0.33 L Est Glomerular Filtrat Rate mL/min > 60 Glucose Level 126 Calcium Level 8.4 Phosphorus Level 3.1 Magnesium Level 1.9 Medications Medication Current Medications Acetaminophen/ Codeine Phosphate (Tylenol No.3) 1 tab Q8H PRN PO PAIN LEVEL 1- 1010; Start 03/11/19 at 14:30 Alprazolam (Xanax) 0.5 mg Q8H PRN PO ANXIETY; Start 03/11/19 at 14:30 Ascorbic Acid (Vitamin C) 500 mg DAILY PO ; Start 03/12/19 at 09:00 Benztropine Mesylate (Cogentin) 1 mg Q12H PO ; Start 03/11/19 at 21:00 Docusate Sodium (Colace) 100 mg BID PO ; Start 03/11/19 at 21:00 Folic Acid (Folic Acid) 1 mg DAILY PO ; Start 03/12/19 at 09:00 Midodrine (Proamatine) 5 mg TID PO ; Start 03/11/19 at 21:00 Octreotide Acetate (Sandostatin) 50 mcg QHS SC Last administered on 03/15/19at 22:04; Admin Dose 50 MCG; Start 03/11/19 at 21:00 Quetiapine Fumarate (Seroquel) 50 mg BID PO ; Start 03/11/19 at 21:00 Senna (Senokot) 2 tab BID PO ; Start 03/11/19 at 21:00 IV Flush (NS 3 ml) 3 ml PER PROTOCOL IV ; Start 03/11/19 at 14:30 Ondansetron HCl (Zofran Inj) 4 mg Q6H PRN IV NAUSEA/VOMITING; Start 03/11/19 at 14:30 Acetaminophen (Tylenol Tab) 650 mg Q6H PRN PO .PAIN 1-3 OR TEMP; Start 03/11/19 at 14:30 Enoxaparin Sodium (Lovenox) 40 mg DAILY SC Last administered on 03/16/19at 10:00; Admin Dose 40 MG; Start 03/12/19 at 09:00 Cefepime HCl 50 ml @ 100 mls/hr Q12 IV Last administered on 03/16/19at 09:54; Admin Dose 100 MLS/HR; Start 03/11/19 at 21:00 Albuterol/ Ipratropium (Duoneb) 3 ml Q2H RESP THERAPY PRN NEB SHORTNESS OF BREATH Last administered on 03/14/19at 08:37; Admin Dose 3 ML; Start 03/11/19 at 14:30 Acetaminophen (Tylenol Supp) 650 mg Q4H PRN [place] MILD PAIN(1-3) OR TEMP>38C; Start 03/11/19 at 15:00 Multivitamins Therapeutic (Theragran) 1 tab DAILY PO ; Start 03/12/19 at 09:00 Lactobacillus Acidophilus/ Rhamnosus (Culturelle) 1 cap DAILY PO ; Start 03/12/19 at 09:00 Pantoprazole (Protonix Iv) 40 mg DAILY@06 IV Last administered on 03/16/19at 05:07; Admin Dose 40 MG; Start 03/12/19 at 06:00 Lorazepam (Ativan) 1 mg Q4H PRN IV AGITATION Last administered on 03/12/19 20:53; Admin Dose 1 MG; Start 03/12/19 at 09:30 Morphine Sulfate (morphine) 0.5 mg Q4H PRN IV SEVERE PAIN LEVEL 7-10; Start 03/12/19 at 09:00 Petrolatum (Vaseline) 1 applic BID PRN TOP DRY MOUTH Last administered on 03/12/19 10:36; Admin Dose 1 APPLIC; Start 03/12/19 at 10:00 Collagenase (Santyl) 1 applic DAILY TOP Last administered on 03/15/19 11:06; Admin Dose 1 APPLIC; Start 03/12/19 at 14:00 Levalbuterol (Xopenex Neb) 0.63 mg Q6HWA RESP THERAPY HHN Last administered on 03/16/19 07:50; Admin Dose 0.63 MG; Start 03/12/19 at 20:00 Dextrose/Sodium Chloride 1,000 ml @ 50 mls/hr Q20H IV Last administered on 03/15/19 11:04; Admin Dose 50 MLS/HR; Start 03/13/19 at 12:00 Methylprednisolone Sodium Succinate (Solu-Medrol) 40 mg Q12 IV Last administered on 03/16/19 09:53; Admin Dose 40 MG; Start 03/15/19 at 21:00 Vancomycin HCl (Vanco Iv Per Pharmacy) VANCOMYCIN PER PHARMACY PER PROTOCOL XX ; Start 03/15/19 at 11:00 Vancomycin/Sodium Chloride 250 ml @ 125 mls/hr Q12H IVPB Last administered on 03/16/19 00:35; Admin Dose 125 MLS/HR; Start 03/16/19 at 01:00 MAEGAN REED Mar 16, 2019 10:23
--- NOTE | 2019-03-16 10:47 | PN ---
Date/Time of Note Date/Time of Note DATE: 03/16/19 TIME: 10:45 Objective Vitals Vital Signs Date Temp Pulse Resp B/P (MAP) Pulse Ox O2 O2 Flow FiO2 Time Delivery Rate 03/16/19 98.0 60 18 117/74 98 07:56 (88) 03/16/19 21 07:50 03/16/19 Room Air 04:15 03/12/19 10.0 21:00 Intake and Output 03/15/19 03/15/19 03/16/19 1515:00 23:00 07:00 IntakeIntake Total 50 ml 800 ml 650 ml OutputOutput Total 350 ml 400 ml 700 ml BalanceBalance -300 ml 400 ml -50 ml Results Result Diagram: 03/16/19 0602 03/16/19 0603 Medications Medications Current Medications Acetaminophen/ Codeine Phosphate (Tylenol No.3) 1 tab Q8H PRN PO PAIN LEVEL 1- 10/10; Start 03/11/19 at 14:30 Alprazolam (Xanax) 0.5 mg Q8H PRN PO ANXIETY; Start 03/11/19 at 14:30 Ascorbic Acid (Vitamin C) 500 mg DAILY PO ; Start 03/12/19 at 09:00 Benztropine Mesylate (Cogentin) 1 mg Q12H PO ; Start 03/11/19 at 21:00 Docusate Sodium (Colace) 100 mg BID PO ; Start 03/11/19 at 21:00 Folic Acid (Folic Acid) 1 mg DAILY PO ; Start 03/12/19 at 09:00 Midodrine (Proamatine) 5 mg TID PO ; Start 03/11/19 at 21:00 Octreotide Acetate (Sandostatin) 50 mcg QHS SC Last administered on 03/15/19at 22:04; Admin Dose 50 MCG; Start 03/11/19 at 21:00 Quetiapine Fumarate (Seroquel) 50 mg BID PO ; Start 03/11/19 at 21:00 Senna (Senokot) 2 tab BID PO ; Start 03/11/19 at 21:00 IV Flush (NS 3 ml) 3 ml PER PROTOCOL IV ; Start 03/11/19 at 14:30 Ondansetron HCl (Zofran Inj) 4 mg Q6H PRN IV NAUSEA/VOMITING; Start 03/11/19 at 14:30 Acetaminophen (Tylenol Tab) 650 mg Q6H PRN PO .PAIN 1-3 OR TEMP; Start 03/11/19 at 14:30 Enoxaparin Sodium (Lovenox) 40 mg DAILY SC Last administered on 03/16/19at 10:00; Admin Dose 40 MG; Start 03/12/19 at 09:00 Cefepime HCl 50 ml @ 100 mls/hr Q12 IV Last administered on 03/16/19at 09:54; Admin Dose 100 MLS/HR; Start 03/11/19 at 21:00 Albuterol/ Ipratropium (Duoneb) 3 ml Q2H RESP THERAPY PRN NEB SHORTNESS OF [place] TH Last administered on 03/14/19 08:37; Admin Dose 3 ML; Start 03/11/19 at 14:30 Acetaminophen (Tylenol Supp) 650 mg Q4H PRN [place] MILD PAIN(1-3) OR TEMP>38C; Start 03/11/19 at 15:00 Multivitamins Therapeutic (Theragran) 1 tab DAILY PO ; Start 03/12/19 at 09:00 Lactobacillus Acidophilus/ Rhamnosus (Culturelle) 1 cap DAILY PO ; Start 03/12/19 at 09:00 Pantoprazole (Protonix Iv) 40 mg DAILY@06 IV Last administered on 03/16/19at 05:07; Admin Dose 40 MG; Start 03/12/19 at 06:00 Lorazepam (Ativan) 1 mg Q4H PRN IV AGITATION Last administered on 03/12/19at 20:53; Admin Dose 1 MG; Start 03/12/19 at 09:30 Morphine Sulfate (morphine) 0.5 mg Q4H PRN IV SEVERE PAIN LEVEL 7-10; Start 03/12/19 at 09:00 Petrolatum (Vaseline) 1 applic BID PRN TOP DRY MOUTH Last administered on 03/12/19 10:36; Admin Dose 1 APPLIC; Start 03/12/19 at 10:00 Collagenase (Santyl) 1 applic DAILY TOP Last administered on 03/15/19 11:06; Admin Dose 1 APPLIC; Start 03/12/19 at 14:00 Levalbuterol (Xopenex Neb) 0.63 mg Q6HWA RESP THERAPY HHN Last administered on 03/16/19 07:50; Admin Dose 0.63 MG; Start 03/12/19 at 20:00 Dextrose/Sodium Chloride 1,000 ml @ 50 mls/hr Q20H IV Last administered on 03/15/19at 11:04; Admin Dose 50 MLS/HR; Start 03/13/19 at 12:00 Methylprednisolone Sodium Succinate (Solu-Medrol) 40 mg Q12 IV Last administered on 03/16/19at 09:53; Admin Dose 40 MG; Start 03/15/19 at 21:00 Vancomycin HCl (Vanco Iv Per Pharmacy) VANCOMYCIN PER PHARMACY PER PROTOCOL XX ; Start 03/15/19 at 11:00 Vancomycin/Sodium Chloride 250 ml @ 125 mls/hr Q12H IVPB Last administered on 03/16/19at 00:35; Admin Dose 125 MLS/HR; Start 03/16/19 at 01:00 VTE Prophylaxis Risk score (from [facility])>0 risk: 7 SCD applied (from [facility]): Yes Lines/Catheters IV Catheter Type: Sanabria in Place: No Assessment/Plan Hospital Course Subjective 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 Neurological: Moves all extremities spontaneously Skin: No new skin lesions Assessment/Plan 1. Sepsis secondary to right sided pneumonia and UTI - remains afebrile with nl WBC - ID on board and appreciate recommendations - CXR showing improving PNA - improving. WBC normalized and remains afebrile - ID on board and appreciate recommendations. - Lactic acid normal. 2. Bilateral pneumonia, resolving - Pulmonology consultation appreciated - Speech evaluation appreciated and not ready for PO intake at this time. -It is possible the patient pneumonia is caused by aspiration given his chronic mental state of cerebral palsy and Down syndrome, if patient's feeding does not improve per speech therapy will need a PEG tube, I spoke to patient's brother to introduce the idea PEG tube and they would like us to continue current treatment with speech evaluation but is okay with PEG tube if needed. 3. UTI - UA noted - urine culture growing proteus - IV antibiotics on board 4. Anemia - hgb stable - no verito bleeding appreciated 5. Downs syndrome - continue home medications - ativan PRN for agitation 6. Disposition -Follow-up with speech therapy recommendations, continue antibiotics, taper steroids. DILIP ROBERTSON Mar 16, 2019 10:47
--- NOTE | 2019-03-16 14:07 | CONS ---
Assessment/Plan Assessment/Plan Hospital Course (Demo Recall) No acute changes, patient looks comfortable, no fevers Microbiology: Blood cultures negative urine culture grew Proteus Antimicrobials: Cefepime Vanco Chest x-ray this morning revealed left basilar infiltrates unchanged, instead extensive consolidations throughout the right lung, unchanged Physical examination: This is a chronically ill-appearing middle-aged man who is in no distress head atraumatic normocephalic neck is supple chest rise symmetrical breath sounds diminished to bases heart S1-S2 abdomen soft bowel sounds hypoactive extremities without cyanosis skin patient has multiple chronic wounds one on the sacrum is healed to the other one on his hip is open Assessment: 1. Sepsis, present on admission 2. Healthcare associated pneumonia, possibly aspirated 3. Urinary tract infection, gram-negative rods 4. Chronic wounds 5. Down's syndrome Plan: Remains stable, continue antibiotics, anti-aspiration precautions, pulmonary recommendations noted, patient may need PEG Consultation Date/Type/Reason Admit Date/Time Mar 11, 2019 at 14:30 Initial Consult Date Type of Consult id Date/Time of Note DATE: 03/16/19 TIME: 14:06 Exam/Review of Systems Exam Vitals Vital Signs Date Temp Pulse Resp B/P (MAP) Pulse Ox O2 O2 Flow FiO2 Time Delivery Rate 03/16/19 62 18 98 21 13:39 03/16/19 98.0 121/72 12:44 (88) 03/16/19 Room Air 04:15 03/12/19 10.0 21:00 Intake and Output 03/15/19 03/15/19 03/16/19 1515:00 23:00 07:00 IntakeIntake Total 50 ml 800 ml 650 ml OutputOutput Total 350 ml 400 ml 700 ml BalanceBalance -300 ml 400 ml -50 ml Results Result Diagram: 03/16/19 0602 03/16/19 0603 Results 24hrs Laboratory Tests Test 03/16/19 06:02 03/16/19 06:03 White Blood Count 6.5 # Red Blood Count 3.76 L Hemoglobin 11.1 L Hematocrit 34.1 L Mean Corpuscular Volume 90.7 Mean Corpuscular Hemoglobin 29.5 Mean Corpuscular Hemoglobin Concent 32.6 Red Cell Distribution Width 17.2 H Platelet Count 352 Mean Platelet Volume 10.5 H Immature Granulocytes % 2.500 H Neutrophils % 67.4 Lymphocytes % 23.6 Monocytes % 6.2 Eosinophils % 0.0 Basophils % 0.3 Nucleated Red Blood Cells % 0.0 Immature Granulocytes # 0.160 H Neutrophils # 4.4 Lymphocytes # 1.5 Monocytes # 0.4 Eosinophils # 0.0 Basophils # 0.0 Nucleated Red Blood Cells # 0.0 Sodium Level 137 Potassium Level 4.0 Chloride Level 104 Carbon Dioxide Level 28 Anion Gap 5 Blood Urea Nitrogen 23 H Creatinine 0.33 L Est Glomerular Filtrat Rate mL/min > 60 Glucose Level 126 Calcium Level 8.4 Phosphorus Level 3.1 Magnesium Level 1.9 Medications Medication Current Medications Acetaminophen/ Codeine Phosphate (Tylenol No.3) 1 tab Q8H PRN PO PAIN LEVEL 1- 10; Start 03/11/19 at 14:30 Alprazolam (Xanax) 0.5 mg Q8H PRN PO ANXIETY; Start 03/11/19 at 14:30 Ascorbic Acid (Vitamin C) 500 mg DAILY PO ; Start 03/12/19 at 09:00 Benztropine Mesylate (Cogentin) 1 mg Q12H PO ; Start 03/11/19 at 21:00 Docusate Sodium (Colace) 100 mg BID PO ; Start 03/11/19 at 21:00 Folic Acid (Folic Acid) 1 mg DAILY PO ; Start 03/12/19 at 09:00 Midodrine (Proamatine) 5 mg TID PO ; Start 03/11/19 at 21:00 Octreotide Acetate (Sandostatin) 50 mcg QHS SC Last administered on 03/15/19at 22:04; Admin Dose 50 MCG; Start 03/11/19 at 21:00 Quetiapine Fumarate (Seroquel) 50 mg BID PO ; Start 03/11/19 at 21:00 Senna (Senokot) 2 tab BID PO ; Start 03/11/19 at 21:00 IV Flush (NS 3 ml) 3 ml PER PROTOCOL IV ; Start 03/11/19 at 14:30 Ondansetron HCl (Zofran Inj) 4 mg Q6H PRN IV NAUSEA/VOMITING; Start 03/11/19 at 14:30 Acetaminophen (Tylenol Tab) 650 mg Q6H PRN PO .PAIN 1-3 OR TEMP; Start 03/11/19 at 14:30 Enoxaparin Sodium (Lovenox) 40 mg DAILY SC Last administered on 03/16/19 10:00; Admin Dose 40 MG; Start 03/12/19 at 09:00 Cefepime HCl 50 ml @ 100 mls/hr Q12 IV Last administered on 03/16/19 09:54; Admin Dose 100 MLS/HR; Start 03/11/19 at 21:00 Albuterol/ Ipratropium (Duoneb) 3 ml Q2H RESP THERAPY PRN NEB SHORTNESS OF BREATH Last administered on 03/14/19 08:37; Admin Dose 3 ML; Start 03/11/19 at 14:30 Acetaminophen (Tylenol Supp) 650 mg Q4H PRN [place] MILD PAIN(1-3) OR TEMP>38C; Start 03/11/19 at 15:00 Multivitamins Therapeutic (Theragran) 1 tab DAILY PO ; Start 03/12/19 at 09:00 Lactobacillus Acidophilus/ Rhamnosus (Culturelle) 1 cap DAILY PO ; Start 03/12/19 at 09:00 Pantoprazole (Protonix Iv) 40 mg DAILY@06 IV Last administered on 03/16/19 05:07; Admin Dose 40 MG; Start 03/12/19 at 06:00 Lorazepam (Ativan) 1 mg Q4H PRN IV AGITATION Last administered on 03/12/19 20:53; Admin Dose 1 MG; Start 03/12/19 at 09:30 Morphine Sulfate (morphine) 0.5 mg Q4H PRN IV SEVERE PAIN LEVEL 7-10; Start 03/12/19 at 09:00 Petrolatum (Vaseline) 1 applic BID PRN TOP DRY MOUTH Last administered on 03/12/19 10:36; Admin Dose 1 APPLIC; Start 03/12/19 at 10:00 Collagenase (Santyl) 1 applic DAILY TOP Last administered on 03/15/19 11:06; Admin Dose 1 APPLIC; Start 03/12/19 at 14:00 Levalbuterol (Xopenex Neb) 0.63 mg Q6HWA RESP THERAPY HHN Last administered on 03/16/19 13:39; Admin Dose 0.63 MG; Start 03/12/19 at 20:00 Dextrose/Sodium Chloride 1,000 ml @ 50 mls/hr Q20H IV Last administered on 03/15/19 11:04; Admin Dose 50 MLS/HR; Start 03/13/19 at 12:00 Vancomycin HCl (Vanco Iv Per Pharmacy) VANCOMYCIN PER PHARMACY PER PROTOCOL XX ; Start 03/15/19 at 11:00 Vancomycin/Sodium Chloride 250 ml @ 125 mls/hr Q12H IVPB Last administered on 03/16/19at 12:47; Admin Dose 125 MLS/HR; Start 03/16/19 at 01:00 Methylprednisolone Sodium Succinate (Solu-Medrol) 20 mg Q12 IV ; Start 03/16/19 at 21:00 TANG ESQUEDA NP Mar 16, 2019 14:07
[2019-03-16] MEDS: DEXTROSE 5%-0.45% NACL 1,000 ML IV SCH ×2 (14:49→20:00)
[2019-03-16] MEDS: OCTREOTIDE 50 MCG INJ SC SCH (21:39)
[2019-03-17] VITALS: PULSE 57
[2019-03-17] MEDS: VANCOMYCIN 1 GM (PMX) 250 ML IVPB SCH ×2 (01:58→14:07)
[2019-03-17 04:39] VITALS: BP 119/71; PULSE 66; RESP 18
[2019-03-17] MEDS: PANTOPRAZOLE 40 MG INJ IV SCH (05:52)
[2019-03-17 07:20] VITALS: BP 105/72; PULSE 70
[2019-03-17] MEDS: LEVALBUTEROL (NEB) 0.63 MG/3 ML AMP HHN SCH ×3 (08:43→19:46)
[2019-03-17] MEDS: DOCUSATE SODIUM 100 MG CAP PO SCH ×2 (09:00→20:14)
[2019-03-17] MEDS: FOLIC ACID 1 MG TAB PO SCH (09:00)
[2019-03-17] MEDS: BENZTROPINE 1 MG TAB PO SCH ×2 (09:00→20:13)
[2019-03-17] MEDS: MIDODRINE 5 MG TAB PO SCH ×3 (09:00→20:14)
[2019-03-17] MEDS: QUETIAPINE 25 MG TAB PO SCH ×2 (09:00→20:14)
[2019-03-17] MEDS: COLLAGENASE 5 GM (UD JAR) TOP SCH (09:00)
[2019-03-17] MEDS: MULTIVITAMINS THERAPEUTIC TAB PO SCH (09:00)
[2019-03-17] MEDS: SENNA TAB PO SCH ×2 (09:00→20:14)
[2019-03-17] MEDS: LACTOBACILLUS RHAMNOSUS CAP PO SCH (09:00)
[2019-03-17] MEDS: ASCORBIC ACID 500 MG TAB PO SCH (09:00)
[2019-03-17] MEDS: CEFEPIME 1GM/50 ML (PMX) 50 ML IV SCH ×2 (09:46→20:16)
[2019-03-17] MEDS: METHYLPREDNISOLONE 40 MG INJ IV SCH (09:48)
[2019-03-17] MEDS: BALSAM PERU/CASTOR OIL 60 GM TUBE TOP SCH ×3 (09:49→20:16)
[2019-03-17] MEDS: ENOXAPARIN 40 MG/0.4 ML SYG SC SCH (09:58)
--- NOTE | 2019-03-17 11:14 | CONS ---
Assessment/Plan Assessment/Plan Hospital Course (Demo Recall) No acute changes over night Microbiology: Blood cultures negative urine culture grew Proteus Antimicrobials: Cefepime Vanco==> #6 Chest x-ray this morning revealed left basilar infiltrates unchanged, instead extensive consolidations throughout the right lung, unchanged Physical examination: This is a chronically ill-appearing middle-aged man who is in no distress head atraumatic normocephalic neck is supple chest rise symmetrical breath sounds diminished to bases heart S1-S2 abdomen soft bowel sounds hypoactive extremities without cyanosis skin patient has multiple chronic wounds one on the sacrum is healed to the other one on his hip is open Assessment: 1. Sepsis, present on admission 2. Healthcare associated pneumonia, possibly aspirated 3. Urinary tract infection, gram-negative rods 4. Chronic wounds 5. Down's syndrome Plan: Remains stable, cxr from yesterday w improvement, continue antibiotics, anti-aspiration precautions, f/u speech therapy rec-s Consultation Date/Type/Reason Admit Date/Time Mar 11, 2019 at 14:30 Initial Consult Date Type of Consult id Date/Time of Note DATE: 03/17/19 TIME: 11:13 Exam/Review of Systems Exam Vitals Vital Signs Date Temp Pulse Resp B/P (MAP) Pulse Ox O2 O2 Flow FiO2 Time Delivery Rate 03/17/19 61 18 96 08:43 03/17/19 97.8 105/72 Room Air 07:20 (83) 03/16/19 21 20:51 Intake and Output 03/16/19 03/16/19 03/17/19 1515:00 23:00 07:00 IntakeIntake Total 50 ml 250 ml OutputOutput Total 500 ml 1450 ml BalanceBalance -450 ml -1200 ml Results Result Diagram: 03/17/19 0540 03/17/19 0540 Results 24hrs Laboratory Tests Test 03/17/19 00:20 03/17/19 05:40 Vancomycin Level Trough 8.4 L White Blood Count 7.4 Red Blood Count 4.20 L Hemoglobin 12.2 L Hematocrit 37.3 L Mean Corpuscular Volume 88.8 Mean Corpuscular Hemoglobin 29.0 Mean Corpuscular Hemoglobin Concent 32.7 Red Cell Distribution Width 17.0 H Platelet Count 436 #H Mean Platelet Volume 9.6 Immature Granulocytes % 4.600 H Neutrophils % 59.2 Lymphocytes % 28.9 Monocytes % 7.2 Eosinophils % 0.0 Basophils % 0.1 Nucleated Red Blood Cells % 0.0 Immature Granulocytes # 0.340 H Neutrophils # 4.4 Lymphocytes # 2.1 Monocytes # 0.5 Eosinophils # 0.0 Basophils # 0.0 Nucleated Red Blood Cells # 0.0 Sodium Level 132 L Potassium Level 4.0 Chloride Level 98 Carbon Dioxide Level 31 Anion Gap 3 L Blood Urea Nitrogen 13 # Creatinine 0.34 L Est Glomerular Filtrat Rate mL/min > 60 Glucose Level 110 Calcium Level 8.5 Phosphorus Level 3.1 Magnesium Level 1.8 Medications Medication Current Medications Acetaminophen/ Codeine Phosphate (Tylenol No.3) 1 tab Q8H PRN PO PAIN LEVEL 1- 10; Start 03/11/19 at 14:30 Alprazolam (Xanax) 0.5 mg Q8H PRN PO ANXIETY; Start 03/11/19 at 14:30 Ascorbic Acid (Vitamin C) 500 mg DAILY PO ; Start 03/12/19 at 09:00 Benztropine Mesylate (Cogentin) 1 mg Q12H PO ; Start 03/11/19 at 21:00 Docusate Sodium (Colace) 100 mg BID PO ; Start 03/11/19 at 21:00 Folic Acid (Folic Acid) 1 mg DAILY PO ; Start 03/12/19 at 09:00 Midodrine (Proamatine) 5 mg TID PO ; Start 03/11/19 at 21:00 Octreotide Acetate (Sandostatin) 50 mcg QHS SC Last administered on 03/16/19at 21:39; Admin Dose 50 MCG; Start 03/11/19 at 21:00 Quetiapine Fumarate (Seroquel) 50 mg BID PO ; Start 03/11/19 at 21:00 Senna (Senokot) 2 tab BID PO ; Start 03/11/19 at 21:00 IV Flush (NS 3 ml) 3 ml PER PROTOCOL IV ; Start 03/11/19 at 14:30 Ondansetron HCl (Zofran Inj) 4 mg Q6H PRN IV NAUSEA/VOMITING; Start 03/11/19 at 14:30 Acetaminophen (Tylenol Tab) 650 mg Q6H PRN PO .PAIN 1-3 OR TEMP; Start 03/11/19 at 14:30 Enoxaparin Sodium (Lovenox) 40 mg DAILY SC Last administered on 03/17/19 09:58; Admin Dose 40 MG; Start 03/12/19 at 09:00 Cefepime HCl 50 ml @ 100 mls/hr Q12 IV Last administered on 03/17/19 09:46; Admin Dose 100 MLS/HR; Start 03/11/19 at 21:00 Albuterol/ Ipratropium (Duoneb) 3 ml Q2H RESP THERAPY PRN NEB SHORTNESS OF BREATH Last administered on 03/14/19 08:37; Admin Dose 3 ML; Start 03/11/19 at 14:30 Acetaminophen (Tylenol Supp) 650 mg Q4H PRN [place] MILD PAIN(1-3) OR TEMP>38C; Start 03/11/19 at 15:00 Multivitamins Therapeutic (Theragran) 1 tab DAILY PO ; Start 03/12/19 at 09:00 Lactobacillus Acidophilus/ Rhamnosus (Culturelle) 1 cap DAILY PO ; Start 03/12/19 at 09:00 Pantoprazole (Protonix Iv) 40 mg DAILY@06 IV Last administered on 03/17/19 05:52; Admin Dose 40 MG; Start 03/12/19 at 06:00 Lorazepam (Ativan) 1 mg Q4H PRN IV AGITATION Last administered on 03/12/19 20:53; Admin Dose 1 MG; Start 03/12/19 at 09:30 Morphine Sulfate (morphine) 0.5 mg Q4H PRN IV SEVERE PAIN LEVEL 7-10; Start 03/12/19 at 09:00 Petrolatum (Vaseline) 1 applic BID PRN TOP DRY MOUTH Last administered on 03/12/19 10:36; Admin Dose 1 APPLIC; Start 03/12/19 at 10:00 Collagenase (Santyl) 1 applic DAILY TOP Last administered on 03/15/19 11:06; Admin Dose 1 APPLIC; Start 03/12/19 at 14:00 Levalbuterol (Xopenex Neb) 0.63 mg Q6HWA RESP THERAPY HHN Last administered on 03/17/19 08:43; Admin Dose 0.63 MG; Start 03/12/19 at 20:00 Dextrose/Sodium Chloride 1,000 ml @ 50 mls/hr Q20H IV Last administered on 7/16/19at 14:49; Admin Dose 50 MLS/HR; Start 03/13/19 at 12:00 Vancomycin HCl (Vanco Iv Per Pharmacy) VANCOMYCIN PER PHARMACY PER PROTOCOL XX ; Start 03/15/19 at 11:00 Methylprednisolone Sodium Succinate (Solu-Medrol) 20 mg Q12 IV Last administered on 03/17/19at 09:48; Admin Dose 20 MG; Start 03/16/19 at 21:00 Vancomycin HCl 250 ml @ 125 mls/hr Q12H IVPB Last administered on 03/17/19at 01:58; Admin Dose 125 MLS/HR; Start 03/17/19 at 02:00 TANG ESQUEDA NP Mar 17, 2019 11:14
[2019-03-17 11:25] VITALS: BP 121/79; PULSE 60; RESP 17
--- NOTE | 2019-03-17 11:34 | CONS ---
Consultation Date/Type/Reason Admit Date/Time Mar 11, 2019 at 14:30 Initial Consult Date Type of Consult Pulmonary/critical care Patient's condition is stable. Remains awake but noncommunicative. Has remained hemodynamically stable. Doing fairly well on room air. General exam; young male, awake, but noncommunicative. Currently in no distress. H EENT exam; supple neck, no JVD. No lymphadenopathy. Midline trachea. No thyromegaly. Patient is edentulous. There is bilateral significant ocular atrophy. Chest exam; crackles right lung. Left lung is clear. S1-S2 audible, no murmurs. Regular rhythm. Abdomen exam; soft, no organomegaly. Nontender. Bowel sounds audible. No scars are present. Extremity exam; no peripheral edema. BRUSHER exam; patient awake but noncommunicative. Assessment and recommendations; 1. Patient with history of dementia admitted with extensive right-sided pneumonia. Currently on cefepime. 2. Bilateral ocular atrophy. 3. Dehydration. 4. Possibly aspiration pneumonia. Continue current supportive care. Continue vancomycin with cefepime. Patient may require a swallow evaluation. May possibly require a G-tube placement. Obtain follow-up chest x-ray in 24 hours. Date/Time of Note DATE: 03/17/19 TIME: 11:32 24 HR Interval Summary Free Text/Dictation Patient's condition is a stable. Has remained hemodynamically stable. General exam; young male, awake but noncommunicative. Currently no distress. H EENT exam; supple neck, no JVD. No lymphadenopathy. Midline trachea. No thyromegaly. Patient bilateral ocular atrophy. Chest exam; diminished but clear breath sounds. S1-S2 audible, no murmurs. Regular rhythm. Abdomen exam; soft, no organomegaly. Bowel sounds audible. Extremity exam; no peripheral edema clubbing. BRUSHER exam; patient remains noncommunicative. Assessment and recommendations; 1. Patient admitted for severe right-sided pneumonia with marked interval clinical and radiological improvement. Possibly aspiration. 2. Dementia 3. Blindness Continue with supportive care. Patient possibly may require a G-tube placement. Exam/Review of Systems Exam Vitals Vital Signs Date Temp Pulse Resp B/P (MAP) Pulse Ox O2 O2 Flow FiO2 Time Delivery Rate 03/17/19 98.0 60 17 121/79 100 11:25 (93) 03/17/19 Room Air 07:20 7/16/19 21 20:51 Intake and Output 03/16/19 03/16/19 03/17/19 1515:00 23:00 07:00 IntakeIntake Total 50 ml 250 ml OutputOutput Total 500 ml 1450 ml BalanceBalance -450 ml -1200 ml Results Result Diagram: 03/17/19 0540 03/17/19 0540 Results 24hrs Laboratory Tests Test 03/17/19 00:20 03/17/19 05:40 Vancomycin Level Trough 8.4 L White Blood Count 7.4 Red Blood Count 4.20 L Hemoglobin 12.2 L Hematocrit 37.3 L Mean Corpuscular Volume 88.8 Mean Corpuscular Hemoglobin 29.0 Mean Corpuscular Hemoglobin Concent 32.7 Red Cell Distribution Width 17.0 H Platelet Count 436 #H Mean Platelet Volume 9.6 Immature Granulocytes % 4.600 H Neutrophils % 59.2 Lymphocytes % 28.9 Monocytes % 7.2 Eosinophils % 0.0 Basophils % 0.1 Nucleated Red Blood Cells % 0.0 Immature Granulocytes # 0.340 H Neutrophils # 4.4 Lymphocytes # 2.1 Monocytes # 0.5 Eosinophils # 0.0 Basophils # 0.0 Nucleated Red Blood Cells # 0.0 Sodium Level 132 L Potassium Level 4.0 Chloride Level 98 Carbon Dioxide Level 31 Anion Gap 3 L Blood Urea Nitrogen 13 # Creatinine 0.34 L Est Glomerular Filtrat Rate mL/min > 60 Glucose Level 110 Calcium Level 8.5 Phosphorus Level 3.1 Magnesium Level 1.8 Medications Medication Current Medications Acetaminophen/ Codeine Phosphate (Tylenol No.3) 1 tab Q8H PRN PO PAIN LEVEL 1- 10/10; Start 03/11/19 at 14:30 Alprazolam (Xanax) 0.5 mg Q8H PRN PO ANXIETY; Start 03/11/19 at 14:30 Ascorbic Acid (Vitamin C) 500 mg DAILY PO ; Start 03/12/19 at 09:00 Benztropine Mesylate (Cogentin) 1 mg Q12H PO ; Start 03/11/19 at 21:00 Docusate Sodium (Colace) 100 mg BID PO ; Start 03/11/19 at 21:00 Folic Acid (Folic Acid) 1 mg DAILY PO ; Start 03/12/19 at 09:00 Midodrine (Proamatine) 5 mg TID PO ; Start 03/11/19 at 21:00 Octreotide Acetate (Sandostatin) 50 mcg QHS SC Last administered on 03/16/19at 21:39; Admin Dose 50 MCG; Start 03/11/19 at 21:00 Quetiapine Fumarate (Seroquel) 50 mg BID PO ; Start 03/11/19 at 21:00 Senna (Senokot) 2 tab BID PO ; Start 03/11/19 at 21:00 IV Flush (NS 3 ml) 3 ml PER PROTOCOL IV ; Start 03/11/19 at 14:30 Ondansetron HCl (Zofran Inj) 4 mg Q6H PRN IV NAUSEA/VOMITING; Start 03/11/19 at 14:30 Acetaminophen (Tylenol Tab) 650 mg Q6H PRN PO .PAIN 1-3 OR TEMP; Start 03/11/19 at 14:30 Enoxaparin Sodium (Lovenox) 40 mg DAILY SC Last administered on 03/17/19at 09:58; Admin Dose 40 MG; Start 03/12/19 at 09:00 Cefepime HCl 50 ml @ 100 mls/hr Q12 IV Last administered on 03/17/19at 09:46; Admin Dose 100 MLS/HR; Start 03/11/19 at 21:00 Albuterol/ Ipratropium (Duoneb) 3 ml Q2H RESP THERAPY PRN NEB SHORTNESS OF BREATH Last administered on 03/14/19at 08:37; Admin Dose 3 ML; Start 03/11/19 at 14:30 Acetaminophen (Tylenol Supp) 650 mg Q4H PRN [place] MILD PAIN(1-3) OR TEMP>38C; Start 03/11/19 at 15:00 Multivitamins Therapeutic (Theragran) 1 tab DAILY PO ; Start 03/12/19 at 09:00 Lactobacillus Acidophilus/ Rhamnosus (Culturelle) 1 cap DAILY PO ; Start 03/12/19 at 09:00 Pantoprazole (Protonix Iv) 40 mg DAILY@06 IV Last administered on 03/17/19at 05:52; Admin Dose 40 MG; Start 03/12/19 at 06:00 Lorazepam (Ativan) 1 mg Q4H PRN IV AGITATION Last administered on 03/12/19at 20:53; Admin Dose 1 MG; Start 03/12/19 at 09:30 Morphine Sulfate (morphine) 0.5 mg Q4H PRN IV SEVERE PAIN LEVEL 7-10; Start 03/12/19 at 09:00 Petrolatum (Vaseline) 1 applic BID PRN TOP DRY MOUTH Last administered on 03/12/19at 10:36; Admin Dose 1 APPLIC; Start 03/12/19 at 10:00 Collagenase (Santyl) 1 applic DAILY TOP Last administered on 03/15/19at 11:06; Admin Dose 1 APPLIC; Start 03/12/19 at 14:00 Levalbuterol (Xopenex Neb) 0.63 mg Q6HWA RESP THERAPY HHN Last administered on 03/17/19 08:43; Admin Dose 0.63 MG; Start 03/12/19 at 20:00 Dextrose/Sodium Chloride 1,000 ml @ 50 mls/hr Q20H IV Last administered on 03/16/19 14:49; Admin Dose 50 MLS/HR; Start 03/13/19 at 12:00 Vancomycin HCl (Vanco Iv Per Pharmacy) VANCOMYCIN PER PHARMACY PER PROTOCOL XX ; Start 03/15/19 at 11:00 Methylprednisolone Sodium Succinate (Solu-Medrol) 20 mg Q12 IV Last administered on 03/17/19 09:48; Admin Dose 20 MG; Start 03/16/19 at 21:00 Vancomycin HCl 250 ml @ 125 mls/hr Q12H IVPB Last administered on 03/17/19at 01:58; Admin Dose 125 MLS/HR; Start 03/17/19 at 02:00 MAEGAN REED Mar 17, 2019 11:34
--- NOTE | 2019-03-17 12:08 | PN ---
Date/Time of Note Date/Time of Note DATE: 03/17/19 TIME: 12:07 Objective Vitals Vital Signs Date Temp Pulse Resp B/P (MAP) Pulse Ox O2 O2 Flow FiO2 Time Delivery Rate 03/17/19 98.0 60 17 121/79 100 11:25 (93) 03/17/19 Room Air 07:20 03/16/19 21 20:51 Intake and Output 03/16/19 03/16/19 03/17/19 1515:00 23:00 07:00 IntakeIntake Total 50 ml 250 ml OutputOutput Total 500 ml 1450 ml BalanceBalance -450 ml -1200 ml Results Result Diagram: 03/17/19 0540 03/17/19 0540 Medications Medications Current Medications Acetaminophen/ Codeine Phosphate (Tylenol No.3) 1 tab Q8H PRN PO PAIN LEVEL 1- 10/10; Start 03/11/19 at 14:30 Alprazolam (Xanax) 0.5 mg Q8H PRN PO ANXIETY; Start 03/11/19 at 14:30 Ascorbic Acid (Vitamin C) 500 mg DAILY PO ; Start 03/12/19 at 09:00 Benztropine Mesylate (Cogentin) 1 mg Q12H PO ; Start 03/11/19 at 21:00 Docusate Sodium (Colace) 100 mg BID PO ; Start 03/11/19 at 21:00 Folic Acid (Folic Acid) 1 mg DAILY PO ; Start 03/12/19 at 09:00 Midodrine (Proamatine) 5 mg TID PO ; Start 03/11/19 at 21:00 Octreotide Acetate (Sandostatin) 50 mcg QHS SC Last administered on 03/16/19at 21:39; Admin Dose 50 MCG; Start 03/11/19 at 21:00 Quetiapine Fumarate (Seroquel) 50 mg BID PO ; Start 03/11/19 at 21:00 Senna (Senokot) 2 tab BID PO ; Start 03/11/19 at 21:00 IV Flush (NS 3 ml) 3 ml PER PROTOCOL IV ; Start 03/11/19 at 14:30 Ondansetron HCl (Zofran Inj) 4 mg Q6H PRN IV NAUSEA/VOMITING; Start 03/11/19 at 14:30 Acetaminophen (Tylenol Tab) 650 mg Q6H PRN PO .PAIN 1-3 OR TEMP; Start 03/11/19 at 14:30 Enoxaparin Sodium (Lovenox) 40 mg DAILY SC Last administered on 03/17/19at 09:58; Admin Dose 40 MG; Start 03/12/19 at 09:00 Cefepime HCl 50 ml @ 100 mls/hr Q12 IV Last administered on 03/17/19at 09:46; Admin Dose 100 MLS/HR; Start 03/11/19 at 21:00 Albuterol/ Ipratropium (Duoneb) 3 ml Q2H RESP THERAPY PRN NEB SHORTNESS OF BREATH Last administered on 03/14/19at 08:37; Admin Dose 3 ML; Start 03/11/19 at 14:30 Acetaminophen (Tylenol Supp) 650 mg Q4H PRN [place] MILD PAIN(1-3) OR TEMP>38C; Start 03/11/19 at 15:00 Multivitamins Therapeutic (Theragran) 1 tab DAILY PO ; Start 03/12/19 at 09:00 Lactobacillus Acidophilus/ Rhamnosus (Culturelle) 1 cap DAILY PO ; Start 03/12/19 at 09:00 Pantoprazole (Protonix Iv) 40 mg DAILY@06 IV Last administered on 03/17/19at 05:52; Admin Dose 40 MG; Start 03/12/19 at 06:00 Lorazepam (Ativan) 1 mg Q4H PRN IV AGITATION Last administered on 03/12/19at 20:53; Admin Dose 1 MG; Start 03/12/19 at 09:30 Morphine Sulfate (morphine) 0.5 mg Q4H PRN IV SEVERE PAIN LEVEL 7-10; Start 03/12/19 at 09:00 Petrolatum (Vaseline) 1 applic BID PRN TOP DRY MOUTH Last administered on 03/12/19at 10:36; Admin Dose 1 APPLIC; Start 03/12/19 at 10:00 Collagenase (Santyl) 1 applic DAILY TOP Last administered on 03/15/19at 11:06; Admin Dose 1 APPLIC; Start 03/12/19 at 14:00 Levalbuterol (Xopenex Neb) 0.63 mg Q6HWA RESP THERAPY HHN Last administered on 03/17/19 08:43; Admin Dose 0.63 MG; Start 7/12/19 at 20:00 Dextrose/Sodium Chloride 1,000 ml @ 50 mls/hr Q20H IV Last administered on 03/16/19at 14:49; Admin Dose 50 MLS/HR; Start 03/13/19 at 12:00 Vancomycin HCl (Vanco Iv Per Pharmacy) VANCOMYCIN PER PHARMACY PER PROTOCOL XX ; Start 03/15/19 at 11:00 Methylprednisolone Sodium Succinate (Solu-Medrol) 20 mg Q12 IV Last administered on 03/17/19at 09:48; Admin Dose 20 MG; Start 03/16/19 at 21:00 Vancomycin HCl 250 ml @ 125 mls/hr Q12H IVPB Last administered on 03/17/19at 01:58; Admin Dose 125 MLS/HR; Start 03/17/19 at 02:00 VTE Prophylaxis Risk score (from [facility])>0 risk: 7 SCD applied (from [facility]): Yes Lines/Catheters IV Catheter Type: Sánchez in Place: Yes Cont'd sánchez catheter reason: terminal illness/intractable pain Assessment/Plan Hospital Course Subjective 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 Neurological: Moves all extremities spontaneously Skin: No new skin lesions Assessment/Plan 1. Sepsis secondary to right sided pneumonia and UTI - remains afebrile with nl WBC - ID on board and appreciate recommendations - CXR showing improving PNA - improving. WBC normalized and remains afebrile - ID on board and appreciate recommendations. - Lactic acid normal. 2. Bilateral pneumonia, resolving - Pulmonology consultation appreciated - Speech evaluation appreciated and not ready for PO intake at this time. -It is possible the patient pneumonia is caused by aspiration given his chronic mental state of cerebral palsy and Down syndrome, if patient's feeding does not improve per speech therapy will need a PEG tube, I spoke to patient's brother to introduce the idea PEG tube and they would like us to continue current treatment with speech evaluation but is okay with PEG tube if needed. 3. UTI - UA noted - urine culture growing proteus - IV antibiotics on board 4. Anemia - hgb stable - no verito bleeding appreciated 5. Downs syndrome - continue home medications - ativan PRN for agitation 6. Disposition -Follow-up with speech therapy recommendations, continue antibiotics, taper steroids. -We will initiate peripheral TPN as patient will not be able to tolerate NG tube as he will almost definitely pull it out, patient's family to make a decision regarding initiating oral feeds with almost definitive aspiration versus PEG tube. DILIP ROBERTSON Mar 17, 2019 12:08
--- NOTE | 2019-03-17 13:00 | CONS ---
Assessment/Plan Assessment/Plan Hospital Course (Demo Recall) Summary Assessment and Plan: Assessment: Failure to thrive/dysphagia Down syndrome Sepsis secondary to pneumonia and UTI UTI Bilateral pneumonia, resolving Cerebral palsy Bilateral blindness History of episodic hypoglycemia had impression of insulinoma- on Octreotide History of exp lap , duodenectomy, excision of bowel in 05/2017 Plan: Patient received Lovenox this am We will plan for PEG placement Friday Endoscopy - risks/benefits/alternatives/indications of procedure and sedation/an esthesia discussed with patient's brother Jadiel and Donovan who states understanding and gives informed consent to proceed. Patient seen in collaboration with Dr. Hooks CC: MAHSA HOOKS MD ; Consultation Date/Type/Reason Admit Date/Time Mar 11, 2019 at 14:30 Date of Consultation: Mar 17, 2019 Type of Consult Gastroenterology Requesting Provider: DILIP ROBERTSON Date/Time of Note DATE: 03/17/19 TIME: 12:37 Hx of Present Illness This is a 43-year-old male with past medical history of bilateral blindness, c erebral palsy, Down syndrome, dysphagia, normocytic anemia, episodic hypoglycemia with impression of insulinoma started on octreotide and prednisone in his nursing facility, patient also has a past medical history of recent hip fracture as well as osteomyelitis status post antibiotic treatment was admitted to the [facility] for sepsis secondary to pneumonia and UTI he has been on antibiotic therapy as well as steroid therapy and is improving GI has been consulted for possible PEG placement secondary to dysphagia and failure to thrive. Patient is nonverbal and therefore I am not able to obtain history last INR was obtained on 03/11 1.27, platelet count is 436 patient did receive Lovenox this morning therefore we will hold off on PEG placement today and plan for in the near future. Subjective hx not possible: pt non-verbal Past Medical History Medical History: other (unknown PMH) Home Meds Reported Medications Tuberculin,Purif.prot.deriv. (Tubersol) 5 Tub Unit/0.1 Ml Vial, 5 TUB ID ONCE, VIAL START DATE 03/14/19 AND END DATE 03/14/19 03/11/19 Alprazolam* (Xanax*) 0.5 Mg Tab, 0.5 MG PO Q8H PRN for ANXIETY, TAB FOR 14 DAYS, STOP DATE 03/17/19 03/11/19 Ascorbic Acid (Vitamin C) 500 Mg Tab, 500 MG PO DAILY, TAB 03/11/19 Balsam Garcia/[place] Oil (Venelex Ointment) 60 Gm Oint..gm., 1 APPLIC TOP DAILY, #1 TUB 03/11/19 Acetaminophen* (Acetaminophen*) 500 MG Extra Strength Tablet, 500 MG PO Q6H PRN for MILD PAIN(1-3)OR ELEVATED TEMP, TAB 03/11/19 Acetaminophen with Codeine (Acetaminophen-Cod #3 Tablet) 1 Each Tablet, 1 TAB PO Q8H PRN for PAIN LEVEL 1-10/10, #7 TAB 03/11/19 Quetiapine Fumarate* (Seroquel*) 50 Mg Tablet, 50 MG PO BID, TAB 03/11/19 Sennosides* (Senna Lax*) 8.6 Mg Tablet, 2 TAB PO BID, TAB 03/11/19 Protein Supplement (Promod) 946 Ml Liquid, 30 ML PO TID 03/11/19 Prednisone* (Prednisone*) 2.5 Mg Tablet, 2.5 MG PO DAILY, TAB 03/11/19 Pantoprazole* (Pantoprazole*) 40 Mg Tablet.dr, 40 MG PO AC BREAKFAST, TAB 03/11/19 Octreotide Acetate* (Octreotide Acetate*) 50 Mcg/1 Ml Disp.syrin, 50 MCG SC QHS, VIAL 03/11/19 Multivitamin with Minerals (Multivitamins with Minerals) 1 Each Tablet, 1 EACH PO DAILY, TAB 03/11/19 Midodrine* (Midodrine*) 5 Mg Tablet, 5 MG PO TID, TAB 03/11/19 Lactobacillus Acidophilus* (Lactinex*) 1 Tab Chew, 1 TAB PO DAILY, TAB 03/11/19 Folic Acid* (Folic Acid*) 1 Mg Tablet, 1 MG PO DAILY, TAB 03/11/19 Docusate Sodium* (Docusate Sodium*) 100 Mg Capsule, 100 MG PO BID, #60 CAP 03/11/19 Benztropine Mesylate* (Benztropine Mesylate*) 1 Mg Tablet, 1 MG PO Q12H, TAB 03/11/19 Medications Current Medications Acetaminophen/ Codeine Phosphate (Tylenol No.3) 1 tab Q8H PRN PO PAIN LEVEL 1- 10/10; Start 7/11/19 at 14:30 Alprazolam (Xanax) 0.5 mg Q8H PRN PO ANXIETY; Start 03/11/19 at 14:30 Ascorbic Acid (Vitamin C) 500 mg DAILY PO ; Start 03/12/19 at 09:00 Benztropine Mesylate (Cogentin) 1 mg Q12H PO ; Start 03/11/19 at 21:00 Docusate Sodium (Colace) 100 mg BID PO ; Start 03/11/19 at 21:00 Folic Acid (Folic Acid) 1 mg DAILY PO ; Start 03/12/19 at 09:00 Midodrine (Proamatine) 5 mg TID PO ; Start 03/11/19 at 21:00 Octreotide Acetate (Sandostatin) 50 mcg QHS SC Last administered on 03/16/19at 21:39; Admin Dose 50 MCG; Start 03/11/19 at 21:00 Quetiapine Fumarate (Seroquel) 50 mg BID PO ; Start 03/11/19 at 21:00 Senna (Senokot) 2 tab BID PO ; Start 03/11/19 at 21:00 IV Flush (NS 3 ml) 3 ml PER PROTOCOL IV ; Start 03/11/19 at 14:30 Ondansetron HCl (Zofran Inj) 4 mg Q6H PRN IV NAUSEA/VOMITING; Start 03/11/19 at 14:30 Acetaminophen (Tylenol Tab) 650 mg Q6H PRN PO .PAIN 1-3 OR TEMP; Start 03/11/19 at 14:30 Enoxaparin Sodium (Lovenox) 40 mg DAILY SC Last administered on 03/17/19at 09:58; Admin Dose 40 MG; Start 03/12/19 at 09:00 Cefepime HCl 50 ml @ 100 mls/hr Q12 IV Last administered on 03/17/19at 09:46; Admin Dose 100 MLS/HR; Start 03/11/19 at 21:00 Albuterol/ Ipratropium (Duoneb) 3 ml Q2H RESP THERAPY PRN NEB SHORTNESS OF BREATH Last administered on 03/14/19at 08:37; Admin Dose 3 ML; Start 03/11/19 at 14:30 Acetaminophen (Tylenol Supp) 650 mg Q4H PRN MS MILD PAIN(1-3) OR TEMP>38C; Start 03/11/19 at 15:00 Multivitamins Therapeutic (Theragran) 1 tab DAILY PO ; Start 03/12/19 at 09:00 Lactobacillus Acidophilus/ Rhamnosus (Culturelle) 1 cap DAILY PO ; Start 03/12/19 at 09:00 Pantoprazole (Protonix Iv) 40 mg DAILY@06 IV Last administered on 03/17/19at 05:52; Admin Dose 40 MG; Start 03/12/19 at 06:00 Lorazepam (Ativan) 1 mg Q4H PRN IV AGITATION Last administered on 03/12/19at 20:53; Admin Dose 1 MG; Start 03/12/19 at 09:30 Morphine Sulfate (morphine) 0.5 mg Q4H PRN IV SEVERE PAIN LEVEL 7-10; Start 03/12/19 at 09:00 Petrolatum (Vaseline) 1 applic BID PRN TOP DRY MOUTH Last administered on 03/12/19at 10:36; Admin Dose 1 APPLIC; Start 03/12/19 at 10:00 Collagenase (Santyl) 1 applic DAILY TOP Last administered on 03/15/19at 11:06; Admin Dose 1 APPLIC; Start 03/12/19 at 14:00 Levalbuterol (Xopenex Neb) 0.63 mg Q6HWA RESP THERAPY HHN Last administered on 03/17/19at 08:43; Admin Dose 0.63 MG; Start 03/12/19 at 20:00 Dextrose/Sodium Chloride 1,000 ml @ 50 mls/hr Q20H IV Last administered on 03/16/19at 14:49; Admin Dose 50 MLS/HR; Start 03/13/19 at 12:00 Vancomycin HCl (Vanco Iv Per Pharmacy) VANCOMYCIN PER PHARMACY PER PROTOCOL XX ; Start 03/15/19 at 11:00 Vancomycin HCl 250 ml @ 125 mls/hr Q12H IVPB Last administered on 03/17/19at 01:58; Admin Dose 125 MLS/HR; Start 03/17/19 at 02:00 Diagnostic Test (Pha) (Accu-Chek) 1 ea Q4 XX ; Start 03/17/19 at 13:00; Status UNV Total Parenteral Nutrition 1,000 ml @ 0 mls/hr Q0M IV ; Start 03/17/19 at 12:05; Status UNV Methylprednisolone Sodium Succinate (Solu-Medrol) 20 mg DAILY IV ; Start 03/18/19 at 09:00; Status UNV Allergies: Coded Allergies: No Known Allergy (Unverified , 03/11/19) Past Surgical History Past Surgical Hx: other (abdominal surgical scar noted) Social History Alcohol Use: none Smoking Status: Unknown if ever smoked Drug Use: none Exam/Review of Systems Exam Vitals Vital Signs Date Temp Pulse Resp B/P (MAP) Pulse Ox O2 O2 Flow FiO2 Time Delivery Rate 03/17/19 98.0 60 17 121/79 100 11:25 (93) 03/17/19 Room Air 07:20 03/16/19 21 20:51 Intake and Output 03/16/19 03/16/19 03/17/19 1515:00 23:00 07:00 IntakeIntake Total 50 ml 250 ml OutputOutput Total 500 ml 1450 ml BalanceBalance -450 ml -1200 ml Exam PHYSICAL EXAMINATION: GENERAL: Non-verbal, chromically ill appears, contracted SKIN: No lesions EYES: No discharge. EARS/NOSE AND THROAT: Ears normal, nose normal, NECK: Supple, no masses CHEST: Inspection within normal limits. CARDIOVASCULAR: Heart: Regular rate and rhythm RESPIRATORY: Diminished GASTROINTESTINAL AND LIVER: Abdomen: Soft, non tenderness, non-distended, no hernias, no masses, normoactive bowel sounds. Rectal: Deferred. EXTREMITIES: No cyanosis, clubbing or edema. Results Result Diagram: 03/17/19 0540 03/17/19 0540 Results 24hrs Laboratory Tests Test 03/17/19 00:20 03/17/19 05:40 Vancomycin Level Trough 8.4 L White Blood Count 7.4 Red Blood Count 4.20 L Hemoglobin 12.2 L Hematocrit 37.3 L Mean Corpuscular Volume 88.8 Mean Corpuscular Hemoglobin 29.0 Mean Corpuscular Hemoglobin Concent 32.7 Red Cell Distribution Width 17.0 H Platelet Count 436 #H Mean Platelet Volume 9.6 Immature Granulocytes % 4.600 H Neutrophils % 59.2 Lymphocytes % 28.9 Monocytes % 7.2 Eosinophils % 0.0 Basophils % 0.1 Nucleated Red Blood Cells % 0.0 Immature Granulocytes # 0.340 H Neutrophils # 4.4 Lymphocytes # 2.1 Monocytes # 0.5 Eosinophils # 0.0 Basophils # 0.0 Nucleated Red Blood Cells # 0.0 Sodium Level 132 L Potassium Level 4.0 Chloride Level 98 Carbon Dioxide Level 31 Anion Gap 3 L Blood Urea Nitrogen 13 # Creatinine 0.34 L Est Glomerular Filtrat Rate mL/min > 60 Glucose Level 110 Calcium Level 8.5 Phosphorus Level 3.1 Magnesium Level 1.8 Medications Medication Current Medications Acetaminophen/ Codeine Phosphate (Tylenol No.3) 1 tab Q8H PRN PO PAIN LEVEL 1- 10/10; Start 03/11/19 at 14:30 Alprazolam (Xanax) 0.5 mg Q8H PRN PO ANXIETY; Start 03/11/19 at 14:30 Ascorbic Acid (Vitamin C) 500 mg DAILY PO ; Start 03/12/19 at 09:00 Benztropine Mesylate (Cogentin) 1 mg Q12H PO ; Start 03/11/19 at 21:00 Docusate Sodium (Colace) 100 mg BID PO ; Start 03/11/19 at 21:00 Folic Acid (Folic Acid) 1 mg DAILY PO ; Start 03/12/19 at 09:00 Midodrine (Proamatine) 5 mg TID PO ; Start 03/11/19 at 21:00 Octreotide Acetate (Sandostatin) 50 mcg QHS SC Last administered on 03/16/19at 21:39; Admin Dose 50 MCG; Start 03/11/19 at 21:00 Quetiapine Fumarate (Seroquel) 50 mg BID PO ; Start 03/11/19 at 21:00 Senna (Senokot) 2 tab BID PO ; Start 03/11/19 at 21:00 IV Flush (NS 3 ml) 3 ml PER PROTOCOL IV ; Start 03/11/19 at 14:30 Ondansetron HCl (Zofran Inj) 4 mg Q6H PRN IV NAUSEA/VOMITING; Start 03/11/19 at 14:30 Acetaminophen (Tylenol Tab) 650 mg Q6H PRN PO .PAIN 1-3 OR TEMP; Start 03/11/19 at 14:30 Enoxaparin Sodium (Lovenox) 40 mg DAILY SC Last administered on 03/17/19at 09:58; Admin Dose 40 MG; Start 03/12/19 at 09:00 Cefepime HCl 50 ml @ 100 mls/hr Q12 IV Last administered on 03/17/19at 09:46; Admin Dose 100 MLS/HR; Start 03/11/19 at 21:00 Albuterol/ Ipratropium (Duoneb) 3 ml Q2H RESP THERAPY PRN NEB SHORTNESS OF BREATH Last administered on 03/14/19at 08:37; Admin Dose 3 ML; Start 03/11/19 at 14:30 Acetaminophen (Tylenol Supp) 650 mg Q4H PRN MS MILD PAIN(1-3) OR TEMP>38C; Start 03/11/19 at 15:00 Multivitamins Therapeutic (Theragran) 1 tab DAILY PO ; Start 03/12/19 at 09:00 Lactobacillus Acidophilus/ Rhamnosus (Culturelle) 1 cap DAILY PO ; Start 03/12/19 at 09:00 Pantoprazole (Protonix Iv) 40 mg DAILY@06 IV Last administered on 03/17/19at 05:52; Admin Dose 40 MG; Start 03/12/19 at 06:00 Lorazepam (Ativan) 1 mg Q4H PRN IV AGITATION Last administered on 03/12/19at 20:53; Admin Dose 1 MG; Start 03/12/19 at 09:30 Morphine Sulfate (morphine) 0.5 mg Q4H PRN IV SEVERE PAIN LEVEL 7-10; Start 03/12/19 at 09:00 Petrolatum (Vaseline) 1 applic BID PRN TOP DRY MOUTH Last administered on 03/12/19at 10:36; Admin Dose 1 APPLIC; Start 03/12/19 at 10:00 Collagenase (Santyl) 1 applic DAILY TOP Last administered on 03/15/19at 11:06; Admin Dose 1 APPLIC; Start 03/12/19 at 14:00 Levalbuterol (Xopenex Neb) 0.63 mg Q6HWA RESP THERAPY HHN Last administered on 03/17/19at 08:43; Admin Dose 0.63 MG; Start 03/12/19 at 20:00 Dextrose/Sodium Chloride 1,000 ml @ 50 mls/hr Q20H IV Last administered on 03/16/19at 14:49; Admin Dose 50 MLS/HR; Start 03/13/19 at 12:00 Vancomycin HCl (Vanco Iv Per Pharmacy) VANCOMYCIN PER PHARMACY PER PROTOCOL XX ; Start 03/15/19 at 11:00 Vancomycin HCl 250 ml @ 125 mls/hr Q12H IVPB Last administered on 03/17/19at 01:58; Admin Dose 125 MLS/HR; Start 03/17/19 at 02:00 Diagnostic Test (Pha) (Accu-Chek) 1 ea Q4 XX ; Start 03/17/19 at 13:00; Status UNV Total Parenteral Nutrition 1,000 ml @ 0 mls/hr Q0M IV ; Start 03/17/19 at 12:05; Status UNV Methylprednisolone Sodium Succinate (Solu-Medrol) 20 mg DAILY IV ; Start 03/01 04/19 at 09:00; Status UNV SHARON MANUEL Mar 17, 2019 12:47
[2019-03-17 15:38] VITALS: BP 110/80; PULSE 97; RESP 17
[2019-03-17] MEDS: DEXTROSE 5%-0.45% NACL 1,000 ML IV SCH (16:00)
[2019-03-17] MEDS: ACCU-CHEK XX SCH ×2 (17:16→20:16)
[2019-03-17] MEDS: TPN 1,000 ML IV SCH (17:54)
[2019-03-17 20:30] VITALS: BP 118/79; PULSE 88; RESP 18
[2019-03-17] MEDS: OCTREOTIDE 50 MCG INJ SC SCH (20:56)
[2019-03-18] VITALS (7 sets, daily range): BP systolic 91–130; BP diastolic 54–83; PULSE 70–109; RESP 17–22
[2019-03-18] MEDS: ACCU-CHEK XX SCH ×6 (01:26→20:34)
[2019-03-18] MEDS: VANCOMYCIN 1 GM (PMX) 250 ML IVPB SCH ×2 (02:42→13:56)
[2019-03-18] MEDS: LORAZEPAM 2 MG INJ IV PRN ×3 (04:29→15:56)
[2019-03-18] MEDS: PANTOPRAZOLE 40 MG INJ IV SCH (05:37)
[2019-03-18] MEDS: LEVALBUTEROL (NEB) 0.63 MG/3 ML AMP HHN SCH ×3 (07:53→20:06)
[2019-03-18] MEDS: SENNA TAB PO SCH ×2 (08:06→20:38)
[2019-03-18] MEDS: MULTIVITAMINS THERAPEUTIC TAB PO SCH (08:06)
[2019-03-18] MEDS: FOLIC ACID 1 MG TAB PO SCH (08:06)
[2019-03-18] MEDS: DOCUSATE SODIUM 100 MG CAP PO SCH ×2 (08:06→20:37)
[2019-03-18] MEDS: BENZTROPINE 1 MG TAB PO SCH ×2 (08:06→20:37)
[2019-03-18] MEDS: LACTOBACILLUS RHAMNOSUS CAP PO SCH (08:06)
[2019-03-18] MEDS: MIDODRINE 5 MG TAB PO SCH ×3 (08:06→20:37)
[2019-03-18] MEDS: QUETIAPINE 25 MG TAB PO SCH ×2 (08:06→20:38)
[2019-03-18] MEDS: ASCORBIC ACID 500 MG TAB PO SCH (08:06)
[2019-03-18] MEDS: CEFEPIME 1GM/50 ML (PMX) 50 ML IV SCH ×2 (08:27→20:27)
[2019-03-18] MEDS: COLLAGENASE 5 GM (UD JAR) TOP SCH (08:27)
[2019-03-18] MEDS: BALSAM PERU/CASTOR OIL 60 GM TUBE TOP SCH ×3 (08:28→20:30)
[2019-03-18] MEDS: ENOXAPARIN 40 MG/0.4 ML SYG SC SCH (08:32)
[2019-03-18] MEDS ORDERED: METHYLPREDNISOLONE 40 MG INJ IV SCH (09:00)
[2019-03-18] MEDS: TPN 1,000 ML IV SCH (10:52)
--- NOTE | 2019-03-18 10:59 | CONS ---
Consultation Date/Type/Reason Admit Date/Time Mar 11, 2019 at 14:30 Initial Consult Date Type of Consult Pulmonary/critical care Patient's condition is stable. Remains awake but noncommunicative. Has remained hemodynamically stable. Doing fairly well on room air. General exam; young male, awake, but noncommunicative. Currently in no distress. H EENT exam; supple neck, no JVD. No lymphadenopathy. Midline trachea. No thyromegaly. Patient is edentulous. There is bilateral significant ocular atrophy. Chest exam; crackles right lung. Left lung is clear. S1-S2 audible, no murmurs. Regular rhythm. Abdomen exam; soft, no organomegaly. Nontender. Bowel sounds audible. No scars are present. Extremity exam; no peripheral edema. TRIAL MANAGER exam; patient awake but noncommunicative. Assessment and recommendations; 1. Patient with history of dementia admitted with extensive right-sided pneumonia. Currently on cefepime. 2. Bilateral ocular atrophy. 3. Dehydration. 4. Possibly aspiration pneumonia. Continue current supportive care. Continue vancomycin with cefepime. Patient may require a swallow evaluation. May possibly require a G-tube placement. Obtain follow-up chest x-ray in 24 hours. Requesting Provider: DILIP ROBERTSON Date/Time of Note DATE: 03/18/19 TIME: 10:57 24 HR Interval Summary Free Text/Dictation Patient's condition is stable. Remains awake but noncommunicative. General exam; young male, with obvious Down syndrome facies. Currently no distress. H EENT exam; supple neck, no JVD. No lymphadenopathy. Midline trachea. No thyromegaly. Patient is edentulous. Has bilateral ocular atrophy. Chest exam; clear to auscultation. S1-S2 audible, no murmurs. Regular rhythm. Abdomen exam; soft, nondistended. Scaphoid. No organomegaly. Bowel sounds audible. Extremity exam; no peripheral edema clubbing. TRIAL MANAGER exam; patient awake but noncommunicative. Assessment and recommendations; 1. Patient with history of Down syndrome admitted with severe right-sided pneumonia with marked interval radiological and clinical improvement. 2. Likely dysphagia causing aspiration pneumonia. Continue current supportive care. Patient to undergo PEG tube/G-tube placement. Continue antibiotic for additional 24 hours. Exam/Review of Systems Exam Vitals Vital Signs Date Temp Pulse Resp B/P (MAP) Pulse Ox O2 O2 Flow FiO2 Time Delivery Rate 03/18/19 70 16 96 21 07:53 03/18/19 98.0 122/79 Room Air 07:36 (93) Intake and Output 03/17/19 03/17/19 03/18/19 1515:00 23:00 07:00 OutputOutput Total 1500 ml BalanceBalance -1500 ml Results Result Diagram: 03/18/19 0508 03/18/19 0508 Results 24hrs Laboratory Tests Test 03/17/19 12:19 03/17/19 13:02 03/17/19 17:12 03/17/19 20:17 Sodium Level 134 L Potassium Level 3.8 Chloride Level 96 L Carbon Dioxide Level 32 H Anion Gap 6 Blood Urea Nitrogen 12 Creatinine 0.40 L Est Glomerular > 60 Filtrat Rate mL/min Glucose Level 103 Hemoglobin A1c 5.2 Calcium Level 8.7 Phosphorus Level 3.0 Magnesium Level 1.8 Total Bilirubin 0.7 Direct Bilirubin 0.00 Indirect Bilirubin 0.7 Aspartate Amino 20 Transf (AST/SGOT) Alanine 14 Aminotransferase (AL T/SGPT) Alkaline Phosphatase 79 Total Protein 7.1 Albumin 2.9 L Globulin 4.20 H Albumin/Globulin 0.69 Ratio Prealbumin 15.9 L Triglycerides Level 195 H Platelet Count 420 H Prothrombin Time 14.9 Prothrombin Time 1.2 Ratio INR International 1.16 Normalized Ratio Activated 31.5 Partial Thromboplast Time Thrombin Time 26.7 H Bedside Glucose 94 106 Test 03/18/19 01:12 03/18/19 05:08 03/18/19 05:46 03/18/19 08:27 Bedside Glucose 114 88 98 White Blood Count 7.5 Red Blood Count 4.17 L Hemoglobin 12.2 L Hematocrit 36.6 L Mean Corpuscular 87.8 Volume Mean Corpuscular 29.3 Hemoglobin Mean Corpuscular 33.3 Hemoglobin Concent Red Cell 17.2 H Distribution Width Platelet Count 468 H Mean Platelet Volume 9.8 Immature 5.000 H Granulocytes % Neutrophils % 52.6 Lymphocytes % 32.6 Monocytes % 8.6 Eosinophils % 0.5 Basophils % 0.7 Nucleated Red Blood 0.0 Cells % Immature 0.370 H Granulocytes # Neutrophils # 3.9 Lymphocytes # 2.4 Monocytes # 0.6 Eosinophils # 0.0 Basophils # 0.1 Nucleated Red Blood 0.0 Cells # Sodium Level 135 Potassium Level 3.7 Chloride Level 98 Carbon Dioxide Level 32 H Anion Gap 5 Blood Urea Nitrogen 13 Creatinine 0.41 L Est Glomerular > 60 Filtrat Rate mL/min Glucose Level 85 Calcium Level 8.4 Phosphorus Level 2.9 Magnesium Level 1.9 Medications Medication Current Medications Acetaminophen/ Codeine Phosphate (Tylenol No.3) 1 tab Q8H PRN PO PAIN LEVEL 1- 10/10; Start 03/11/19 at 14:30 Alprazolam (Xanax) 0.5 mg Q8H PRN PO ANXIETY; Start 03/11/19 at 14:30 Ascorbic Acid (Vitamin C) 500 mg DAILY PO ; Start 03/12/19 at 09:00 Benztropine Mesylate (Cogentin) 1 mg Q12H PO ; Start 03/11/19 at 21:00 Docusate Sodium (Colace) 100 mg BID PO ; Start 03/11/19 at 21:00 Folic Acid (Folic Acid) 1 mg DAILY PO ; Start 03/12/19 at 09:00 Midodrine (Proamatine) 5 mg TID PO ; Start 03/11/19 at 21:00 Octreotide Acetate (Sandostatin) 50 mcg QHS SC Last administered on 03/17/19at 20:56; Admin Dose 50 MCG; Start 03/11/19 at 21:00 Quetiapine Fumarate (Seroquel) 50 mg BID PO ; Start 03/11/19 at 21:00 Senna (Senokot) 2 tab BID PO ; Start 03/11/19 at 21:00 IV Flush (NS 3 ml) 3 ml PER PROTOCOL IV ; Start 03/11/19 at 14:30 Ondansetron HCl (Zofran Inj) 4 mg Q6H PRN IV NAUSEA/VOMITING; Start 03/11/19 at 14:30 Acetaminophen (Tylenol Tab) 650 mg Q6H PRN PO .PAIN 1-3 OR TEMP; Start 03/11/19 at 14:30 Enoxaparin Sodium (Lovenox) 40 mg DAILY SC Last administered on 03/18/19at 08:32; Admin Dose 40 MG; Start 03/12/19 at 09:00; Status Future hold Cefepime HCl 50 ml @ 100 mls/hr Q12 IV Last administered on 03/18/19at 08:27; Admin Dose 100 MLS/HR; Start 03/11/19 at 21:00 Albuterol/ Ipratropium (Duoneb) 3 ml Q2H RESP THERAPY PRN NEB SHORTNESS OF BREATH Last administered on 03/14/19at 08:37; Admin Dose 3 ML; Start 03/11/19 at 14:30 Acetaminophen (Tylenol Supp) 650 mg Q4H PRN OR MILD PAIN(1-3) OR TEMP>38C; S tart 03/11/19 at 15:00 Multivitamins Therapeutic (Theragran) 1 tab DAILY PO ; Start 03/12/19 at 09:00 Lactobacillus Acidophilus/ Rhamnosus (Culturelle) 1 cap DAILY PO ; Start 03/12/19 at 09:00 Pantoprazole (Protonix Iv) 40 mg DAILY@06 IV Last administered on 03/18/19at 05:37; Admin Dose 40 MG; Start 03/12/19 at 06:00 Lorazepam (Ativan) 1 mg Q4H PRN IV AGITATION Last administered on 03/18/19at 10:52; Admin Dose 1 MG; Start 03/12/19 at 09:30 Morphine Sulfate (morphine) 0.5 mg Q4H PRN IV SEVERE PAIN LEVEL 7-10; Start 03/12/19 at 09:00 Petrolatum (Vaseline) 1 applic BID PRN TOP DRY MOUTH Last administered on 03/12/19at 10:36; Admin Dose 1 APPLIC; Start 03/12/19 at 10:00 Collagenase (Santyl) 1 applic DAILY TOP Last administered on 03/18/19 08:27; Admin Dose 1 APPLIC; Start 03/12/19 at 14:00 Levalbuterol (Xopenex Neb) 0.63 mg Q6HWA RESP THERAPY HHN Last administered on 03/18/19 07:53; Admin Dose 0.63 MG; Start 03/12/19 at 20:00 Vancomycin HCl (Vanco Iv Per Pharmacy) VANCOMYCIN PER PHARMACY PER PROTOCOL XX ; Start 03/15/19 at 11:00 Vancomycin HCl 250 ml @ 125 mls/hr Q12H IVPB Last administered on 03/18/19at 02:42; Admin Dose 125 MLS/HR; Start 03/17/19 at 02:00 Diagnostic Test (Pha) (Accu-Chek) 1 ea Q4 XX Last administered on 03/18/19at 05:47; Admin Dose 1 EA; Start 03/17/19 at 17:00 Total Parenteral Nutrition 1,000 ml @ 55 mls/hr [id number] IV Last administered on 03/18/19at 10:52; Admin Dose 55 MLS/HR; Start 03/17/19 at 17:00 Methylprednisolone Sodium Succinate (Solu-Medrol) 20 mg DAILY IV Last administered on 03/18/19at 08:27; Admin Dose 20 MG; Start 03/18/19 at 09:00 Miscellaneous Information (*Rx Drug Level Order Reminder*) VANCO TR AT 1300 1300 ONCE XX ; Start 03/18/19 at 13:00; Stop 03/18/19 at 13:01 MAEGAN REED Mar 18, 2019 10:59
--- NOTE | 2019-03-18 12:12 | PN ---
Date/Time of Note Date/Time of Note DATE: 03/18/19 TIME: 12:12 Objective Vitals Vital Signs Date Temp Pulse Resp B/P (MAP) Pulse Ox O2 O2 Flow FiO2 Time Delivery Rate 03/18/19 97.6 109 22 113/83 96 Room Air 11:48 (93) 03/18/19 21 07:53 Intake and Output 03/17/19 03/17/19 03/18/19 1515:00 23:00 07:00 OutputOutput Total 1500 ml BalanceBalance -1500 ml Results Result Diagram: 03/18/19 0508 03/18/19 0508 Medications Medications Current Medications Acetaminophen/ Codeine Phosphate (Tylenol No.3) 1 tab Q8H PRN PO PAIN LEVEL 1- 10/10; Start 03/11/19 at 14:30 Alprazolam (Xanax) 0.5 mg Q8H PRN PO ANXIETY; Start 03/11/19 at 14:30 Ascorbic Acid (Vitamin C) 500 mg DAILY PO ; Start 03/12/19 at 09:00 Benztropine Mesylate (Cogentin) 1 mg Q12H PO ; Start 03/11/19 at 21:00 Docusate Sodium (Colace) 100 mg BID PO ; Start 03/11/19 at 21:00 Folic Acid (Folic Acid) 1 mg DAILY PO ; Start 03/12/19 at 09:00 Midodrine (Proamatine) 5 mg TID PO ; Start 03/11/19 at 21:00 Octreotide Acetate (Sandostatin) 50 mcg QHS SC Last administered on 03/17/19at 20:56; Admin Dose 50 MCG; Start 03/11/19 at 21:00 Quetiapine Fumarate (Seroquel) 50 mg BID PO ; Start 03/11/19 at 21:00 Senna (Senokot) 2 tab BID PO ; Start 03/11/19 at 21:00 IV Flush (NS 3 ml) 3 ml PER PROTOCOL IV ; Start 03/11/19 at 14:30 Ondansetron HCl (Zofran Inj) 4 mg Q6H PRN IV NAUSEA/VOMITING; Start 03/11/19 at 14:30 Acetaminophen (Tylenol Tab) 650 mg Q6H PRN PO .PAIN 1-3 OR TEMP; Start 03/11/19 at 14:30 Enoxaparin Sodium (Lovenox) 40 mg DAILY SC Last administered on 03/18/19 08:32; Admin Dose 40 MG; Start 03/12/19 at 09:00; Status Future hold Cefepime HCl 50 ml @ 100 mls/hr Q12 IV Last administered on 03/18/19 08:27; Admin Dose 100 MLS/HR; Start 03/11/19 at 21:00 Albuterol/ Ipratropium (Duoneb) 3 ml Q2H RESP THERAPY PRN NEB SHORTNESS OF BREATH Last administered on 03/14/19 08:37; Admin Dose 3 ML; Start 03/11/19 at 14:30 Acetaminophen (Tylenol Supp) 650 mg Q4H PRN [place] MILD PAIN(1-3) OR TEMP>38C; Start 03/11/19 at 15:00 Multivitamins Therapeutic (Theragran) 1 tab DAILY PO ; Start 03/12/19 at 09:00 Lactobacillus Acidophilus/ Rhamnosus (Culturelle) 1 cap DAILY PO ; Start 03/12/19 at 09:00 Pantoprazole (Protonix Iv) 40 mg DAILY@06 IV Last administered on 03/18/19 05:37; Admin Dose 40 MG; Start 03/12/19 at 06:00 Lorazepam (Ativan) 1 mg Q4H PRN IV AGITATION Last administered on 03/18/19 10:52; Admin Dose 1 MG; Start 03/12/19 at 09:30 Morphine Sulfate (morphine) 0.5 mg Q4H PRN IV SEVERE PAIN LEVEL 7-10; Start 03/12/19 at 09:00 Petrolatum (Vaseline) 1 applic BID PRN TOP DRY MOUTH Last administered on 03/12/19 10:36; Admin Dose 1 APPLIC; Start 03/12/19 at 10:00 Collagenase (Santyl) 1 applic DAILY TOP Last administered on 03/18/19 08:27; Admin Dose 1 APPLIC; Start 03/12/19 at 14:00 Levalbuterol (Xopenex Neb) 0.63 mg Q6HWA RESP THERAPY HHN Last administered on 03/18/19 07:53; Admin Dose 0.63 MG; Start 03/12/19 at 20:00 Vancomycin HCl (Vanco Iv Per Pharmacy) VANCOMYCIN PER PHARMACY PER PROTOCOL XX ; Start 03/15/19 at 11:00 Vancomycin HCl 250 ml @ 125 mls/hr Q12H IVPB Last administered on 03/18/19at 02:42; Admin Dose 125 MLS/HR; Start 03/17/19 at 02:00 Diagnostic Test (Pha) (Accu-Chek) 1 ea Q4 XX Last administered on 03/18/19at 05:47; Admin Dose 1 EA; Start 03/17/19 at 17:00 Total Parenteral Nutrition 1,000 ml @ 55 mls/hr [id number] IV Last administered on 03/18/19at 10:52; Admin Dose 55 MLS/HR; Start 03/17/19 at 17:00 Methylprednisolone Sodium Succinate (Solu-Medrol) 20 mg DAILY IV Last administ ered on 03/18/19at 08:27; Admin Dose 20 MG; Start 03/18/19 at 09:00 Miscellaneous Information (*Rx Drug Level Order Reminder*) VANCO TR AT 1300 1300 ONCE XX ; Start 03/18/19 at 13:00; Stop 03/18/19 at 13:01 VTE Prophylaxis Risk score (from Ns)>0 risk: 7 SCD applied (from [facility] [place]): Yes Lines/Catheters IV Catheter Type: Sanabria in Place: No Assessment/Plan Hospital Course Subjective 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 Neurological: Moves all extremities spontaneously Skin: No new skin lesions Assessment/Plan 1. Sepsis secondary to right sided pneumonia and UTI - remains afebrile with nl WBC - ID on board and appreciate recommendations - CXR showing improving PNA - improving. WBC normalized and remains afebrile - ID on board and appreciate recommendations. - Lactic acid normal. 2. Bilateral pneumonia, resolving - Pulmonology consultation appreciated - Speech evaluation appreciated and not ready for PO intake at this time. -It is possible the patient pneumonia is caused by aspiration given his chronic mental state of cerebral palsy and Down syndrome, if patient's feeding does not improve per speech therapy will need a PEG tube, I spoke to patient's brother to introduce the idea PEG tube and they would like us to continue current treatment with speech evaluation but is okay with PEG tube if needed. 3. UTI - UA noted - urine culture growing proteus - IV antibiotics on board 4. Anemia - hgb stable - no verito bleeding appreciated 5. Downs syndrome - continue home medications - ativan PRN for agitation 6. Disposition -Follow-up with speech therapy recommendations, continue antibiotics, taper steroids. -Continue TPN peripherally for now, will get PEG tube tomorrow. DILIP ROBERTSON Mar 18, 2019 12:12
--- NOTE | 2019-03-18 12:46 | PN ---
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 Patient seen in collaboration with Dr. Hooks Subjective: Course reviewed with nursing staff Patient interviewed and examined All labs, imaging and other results reviewed The patient appears comfortable No over night events. Pt satting 96% on RA Exam PHYSICAL EXAMINATION: GENERAL: Non-verbal, chromically ill appears, contracted SKIN: No lesions EYES: No discharge. EARS/NOSE AND THROAT: Ears normal, nose normal, NECK: Supple, no masses CHEST: Inspection within normal limits. CARDIOVASCULAR: Heart: Regular rate and rhythm RESPIRATORY: Diminished/Rales GASTROINTESTINAL AND LIVER: Abdomen: Soft, non tenderness, non-distended, no hernias, no masses, normoactive bowel sounds. Rectal: Deferred. EXTREMITIES: No cyanosis, clubbing or edema. Result Diagram: 03/18/19 0508 03/18/19 0508 Results 24hrs Laboratory Tests Test 03/17/19 13:02 03/17/19 17:12 03/17/19 20:17 03/18/19 01:12 Platelet Count 420 H Prothrombin Time 14.9 Prothrombin Time 1.2 Ratio INR International 1.16 Normalized Ratio Activated 31.5 Partial Thromboplast Time Thrombin Time 26.7 H Bedside Glucose 94 106 114 Test 03/18/19 05:08 03/18/19 05:46 03/18/19 08:27 03/18/19 12:15 White Blood Count 7.5 Red Blood Count 4.17 L Hemoglobin 12.2 L Hematocrit 36.6 L Mean Corpuscular 87.8 Volume Mean Corpuscular 29.3 Hemoglobin Mean Corpuscular 33.3 Hemoglobin Concent Red Cell 17.2 H Distribution Width Platelet Count 468 H Mean Platelet Volume 9.8 Immature 5.000 H Granulocytes % Neutrophils % 52.6 Lymphocytes % 32.6 Monocytes % 8.6 Eosinophils % 0.5 Basophils % 0.7 Nucleated Red Blood 0.0 Cells % Immature 0.370 H Granulocytes # Neutrophils # 3.9 Lymphocytes # 2.4 Monocytes # 0.6 Eosinophils # 0.0 Basophils # 0.1 Nucleated Red Blood 0.0 Cells # Sodium Level 135 Potassium Level 3.7 Chloride Level 98 Carbon Dioxide Level 32 H Anion Gap 5 Blood Urea Nitrogen 13 Creatinine 0.41 L Est Glomerular > 60 Filtrat Rate mL/min Glucose Level 85 Calcium Level 8.4 Phosphorus Level 2.9 Magnesium Level 1.9 Bedside Glucose 88 98 122 Exam/Review of Systems Exam Vitals Vital Signs Date Temp Pulse Resp B/P (MAP) Pulse Ox O2 O2 Flow FiO2 Time Delivery Rate 03/18/19 97.6 109 22 113/83 96 Room Air 11:48 (93) 03/18/19 21 07:53 Intake and Output 03/17/19 03/17/19 03/18/19 1515:00 23:00 07:00 OutputOutput Total 1500 ml BalanceBalance -1500 ml Results Results 24hrs Laboratory Tests Test 03/17/19 13:02 03/17/19 17:12 03/17/19 20:17 03/18/19 01:12 Platelet Count 420 H Prothrombin Time 14.9 Prothrombin Time 1.2 Ratio INR International 1.16 Normalized Ratio Activated 31.5 Partial Thromboplast Time Thrombin Time 26.7 H Bedside Glucose 94 106 114 Test 03/18/19 05:08 03/18/19 05:46 03/18/19 08:27 03/18/19 12:15 White Blood Count 7.5 Red Blood Count 4.17 L Hemoglobin 12.2 L Hematocrit 36.6 L Mean Corpuscular 87.8 Volume Mean Corpuscular 29.3 Hemoglobin Mean Corpuscular 33.3 Hemoglobin Concent Red Cell 17.2 H Distribution Width Platelet Count 468 H Mean Platelet Volume 9.8 Immature 5.000 H Granulocytes % Neutrophils % 52.6 Lymphocytes % 32.6 Monocytes % 8.6 Eosinophils % 0.5 Basophils % 0.7 Nucleated Red Blood 0.0 Cells % Immature 0.370 H Granulocytes # Neutrophils # 3.9 Lymphocytes # 2.4 Monocytes # 0.6 Eosinophils # 0.0 Basophils # 0.1 Nucleated Red Blood 0.0 Cells # Sodium Level 135 Potassium Level 3.7 Chloride Level 98 Carbon Dioxide Level 32 H Anion Gap 5 Blood Urea Nitrogen 13 Creatinine 0.41 L Est Glomerular > 60 Filtrat Rate mL/min Glucose Level 85 Calcium Level 8.4 Phosphorus Level 2.9 Magnesium Level 1.9 Bedside Glucose 88 98 122 Medications Medication Current Medications Acetaminophen/ Codeine Phosphate (Tylenol No.3) 1 tab Q8H PRN PO PAIN LEVEL 1- 10; Start 03/11/19 at 14:30 Alprazolam (Xanax) 0.5 mg Q8H PRN PO ANXIETY; Start 03/11/19 at 14:30 Ascorbic Acid (Vitamin C) 500 mg DAILY PO ; Start 03/12/19 at 09:00 Benztropine Mesylate (Cogentin) 1 mg Q12H PO ; Start 03/11/19 at 21:00 Docusate Sodium (Colace) 100 mg BID PO ; Start 03/11/19 at 21:00 Folic Acid (Folic Acid) 1 mg DAILY PO ; Start 03/12/19 at 09:00 Midodrine (Proamatine) 5 mg TID PO ; Start 03/11/19 at 21:00 Octreotide Acetate (Sandostatin) 50 mcg QHS SC Last administered on 03/17/19at 20:56; Admin Dose 50 MCG; Start 03/11/19 at 21:00 Quetiapine Fumarate (Seroquel) 50 mg BID PO ; Start 03/11/19 at 21:00 Senna (Senokot) 2 tab BID PO ; Start 03/11/19 at 21:00 IV Flush (NS 3 ml) 3 ml PER PROTOCOL IV ; Start 03/11/19 at 14:30 Ondansetron HCl (Zofran Inj) 4 mg Q6H PRN IV NAUSEA/VOMITING; Start 03/11/19 at 14:30 Acetaminophen (Tylenol Tab) 650 mg Q6H PRN PO .PAIN 1-3 OR TEMP; Start 03/11/19 at 14:30 Enoxaparin Sodium (Lovenox) 40 mg DAILY SC Last administered on 03/18/19 08:32; Admin Dose 40 MG; Start 03/12/19 at 09:00; Status Future hold Cefepime HCl 50 ml @ 100 mls/hr Q12 IV Last administered on 03/18/19 08:27; Admin Dose 100 MLS/HR; Start 03/11/19 at 21:00 Albuterol/ Ipratropium (Duoneb) 3 ml Q2H RESP THERAPY PRN NEB SHORTNESS OF BREATH Last administered on 03/14/19 08:37; Admin Dose 3 ML; Start 03/11/19 at 14:30 Acetaminophen (Tylenol Supp) 650 mg Q4H PRN [place] MILD PAIN(1-3) OR TEMP>38C; Start 03/11/19 at 15:00 Multivitamins Therapeutic (Theragran) 1 tab DAILY PO ; Start 03/12/19 at 09:00 Lactobacillus Acidophilus/ Rhamnosus (Culturelle) 1 cap DAILY PO ; Start 03/12/19 at 09:00 Pantoprazole (Protonix Iv) 40 mg DAILY@06 IV Last administered on 03/18/19 05:37; Admin Dose 40 MG; Start 03/12/19 at 06:00 Lorazepam (Ativan) 1 mg Q4H PRN IV AGITATION Last administered on 03/18/19 10:52; Admin Dose 1 MG; Start 03/12/19 at 09:30 Morphine Sulfate (morphine) 0.5 mg Q4H PRN IV SEVERE PAIN LEVEL 7-10; Start 03/12/19 at 09:00 Petrolatum (Vaseline) 1 applic BID PRN TOP DRY MOUTH Last administered on 03/12/19 10:36; Admin Dose 1 APPLIC; Start 03/12/19 at 10:00 Collagenase (Santyl) 1 applic DAILY TOP Last administered on 03/18/19 08:27; Admin Dose 1 APPLIC; Start 03/12/19 at 14:00 Levalbuterol (Xopenex Neb) 0.63 mg Q6HWA RESP THERAPY HHN Last administered on 03/18/19 07:53; Admin Dose 0.63 MG; Start 03/12/19 at 20:00 Vancomycin HCl (Vanco Iv Per Pharmacy) VANCOMYCIN PER PHARMACY PER PROTOCOL XX ; Start 03/15/19 at 11:00 Vancomycin HCl 250 ml @ 125 mls/hr Q12H IVPB Last administered on 03/18/19at 02:42; Admin Dose 125 MLS/HR; Start 03/17/19 at 02:00 Diagnostic Test (Pha) (Accu-Chek) 1 ea Q4 XX Last administered on 03/18/19at 05:47; Admin Dose 1 EA; Start 03/17/19 at 17:00 Total Parenteral Nutrition 1,000 ml @ 55 mls/hr [id number] IV Last administered on 03/18/19at 10:52; Admin Dose 55 MLS/HR; Start 03/17/19 at 17:00 Miscellaneous Information (*Rx Drug Level Order Reminder*) AFSHINO TR AT 1300 1300 ONCE XX ; Start 03/18/19 at 13:00; Stop 03/18/19 at 13:01 Methylprednisolone Sodium Succinate (Solu-Medrol) 10 mg DAILY IV ; Start 03/19/19 at 09:00 SHARON MANUEL Mar 18, 2019 12:46
--- NOTE | 2019-03-18 15:25 | CONS ---
Assessment/Plan Assessment/Plan Hospital Course (Demo Recall) No acute changes over night, no fevers, looks comfortable Microbiology: Blood cultures negative urine culture grew Proteus Antimicrobials: Cefepime Vanco Chest x-ray this morning revealed left basilar infiltrates unchanged, instead extensive consolidations throughout the right lung, unchanged Physical examination: This is a chronically ill-appearing middle-aged man who is in no distress head atraumatic normocephalic neck is supple chest rise symmetrical breath sounds diminished to bases heart S1-S2 abdomen soft bowel sounds hypoactive extremities without cyanosis skin patient has multiple chronic wounds one on the sacrum is healed to the other one on his hip is open Assessment: 1. Sepsis, present on admission 2. Healthcare associated pneumonia, possibly aspirated 3. Urinary tract infection, gram-negative rods 4. Chronic wounds 5. Down's syndrome Plan: Remains stable, continue antibiotics, anti-aspiration precautions, plan for PEG Consultation Date/Type/Reason Admit Date/Time Mar 11, 2019 at 14:30 Initial Consult Date Type of Consult id Requesting Provider: DILIP ROBERTSON Date/Time of Note DATE: 03/18/19 TIME: 15:25 Exam/Review of Systems Exam Vitals Vital Signs Date Temp Pulse Resp B/P (MAP) Pulse Ox O2 O2 Flow FiO2 Time Delivery Rate 03/18/19 75 18 21 13:27 03/18/19 97.6 113/83 96 Room Air 11:48 (93) Intake and Output 03/17/19 03/17/19 03/18/19 1515:00 23:00 07:00 OutputOutput Total 1500 ml BalanceBalance -1500 ml Results Result Diagram: 03/18/19 0508 03/18/19 0508 Results 24hrs Laboratory Tests Test 03/17/19 17:12 03/17/19 20:17 03/18/19 01:12 03/18/19 05:08 Bedside Glucose 94 106 114 White Blood Count 7.5 Red Blood Count 4.17 L Hemoglobin 12.2 L Hematocrit 36.6 L Mean Corpuscular 87.8 Volume Mean Corpuscular 29.3 Hemoglobin Mean Corpuscular 33.3 Hemoglobin Concent Red Cell 17.2 H Distribution Width Platelet Count 468 H Mean Platelet Volume 9.8 Immature 5.000 H Granulocytes % Neutrophils % 52.6 Lymphocytes % 32.6 Monocytes % 8.6 Eosinophils % 0.5 Basophils % 0.7 Nucleated Red Blood 0.0 Cells % Immature 0.370 H Granulocytes # Neutrophils # 3.9 Lymphocytes # 2.4 Monocytes # 0.6 Eosinophils # 0.0 Basophils # 0.1 Nucleated Red Blood 0.0 Cells # Sodium Level 135 Potassium Level 3.7 Chloride Level 98 Carbon Dioxide Level 32 H Anion Gap 5 Blood Urea Nitrogen 13 Creatinine 0.41 L Est Glomerular > 60 Filtrat Rate mL/min Glucose Level 85 Calcium Level 8.4 Phosphorus Level 2.9 Magnesium Level 1.9 Test 03/18/19 05:46 03/18/19 08:27 03/18/19 12:15 03/18/19 12:50 Bedside Glucose 88 98 122 Vancomycin Level 11.6 Trough Medications Medication Current Medications Acetaminophen/ Codeine Phosphate (Tylenol No.3) 1 tab Q8H PRN PO PAIN LEVEL 1- 06/10; Start 03/11/19 at 14:30 Alprazolam (Xanax) 0.5 mg Q8H PRN PO ANXIETY; Start 03/11/19 at 14:30 Ascorbic Acid (Vitamin C) 500 mg DAILY PO ; Start 03/12/19 at 09:00 Benztropine Mesylate (Cogentin) 1 mg Q12H PO ; Start 03/11/19 at 21:00 Docusate Sodium (Colace) 100 mg BID PO ; Start 03/11/19 at 21:00 Folic Acid (Folic Acid) 1 mg DAILY PO ; Start 03/12/19 at 09:00 Midodrine (Proamatine) 5 mg TID PO ; Start 03/11/19 at 21:00 Octreotide Acetate (Sandostatin) 50 mcg QHS SC Last administered on 03/17/19at 20:56; Admin Dose 50 MCG; Start 03/11/19 at 21:00 Quetiapine Fumarate (Seroquel) 50 mg BID PO ; Start 03/11/19 at 21:00 Senna (Senokot) 2 tab BID PO ; Start 03/11/19 at 21:00 IV Flush (NS 3 ml) 3 ml PER PROTOCOL IV ; Start 03/11/19 at 14:30 Ondansetron HCl (Zofran Inj) 4 mg Q6H PRN IV NAUSEA/VOMITING; Start 03/11/19 at 14:30 Acetaminophen (Tylenol Tab) 650 mg Q6H PRN PO .PAIN 1-3 OR TEMP; Start 03/11/19 at 14:30 Enoxaparin Sodium (Lovenox) 40 mg DAILY SC Last administered on 03/18/19at 08:32; Admin Dose 40 MG; Start 03/12/19 at 09:00; Status Future hold Cefepime HCl 50 ml @ 100 mls/hr Q12 IV Last administered on 03/18/19 08:27; Admin Dose 100 MLS/HR; Start 03/11/19 at 21:00 Albuterol/ Ipratropium (Duoneb) 3 ml Q2H RESP THERAPY PRN NEB SHORTNESS OF BREATH Last administered on 03/14/19 08:37; Admin Dose 3 ML; Start 03/11/19 at 14:30 Acetaminophen (Tylenol Supp) 650 mg Q4H PRN [place] MILD PAIN(1-3) OR TEMP>38C; Start 03/11/19 at 15:00 Multivitamins Therapeutic (Theragran) 1 tab DAILY PO ; Start 03/12/19 at 09:00 Lactobacillus Acidophilus/ Rhamnosus (Culturelle) 1 cap DAILY PO ; Start 03/12/19 at 09:00 Pantoprazole (Protonix Iv) 40 mg DAILY@06 IV Last administered on 03/18/19 05:37; Admin Dose 40 MG; Start 03/12/19 at 06:00 Lorazepam (Ativan) 1 mg Q4H PRN IV AGITATION Last administered on 03/18/19 10:52; Admin Dose 1 MG; Start 03/12/19 at 09:30 Morphine Sulfate (morphine) 0.5 mg Q4H PRN IV SEVERE PAIN LEVEL 7-10; Start 03/12/19 at 09:00 Petrolatum (Vaseline) 1 applic BID PRN TOP DRY MOUTH Last administered on 03/12/19 10:36; Admin Dose 1 APPLIC; Start 03/12/19 at 10:00 Collagenase (Santyl) 1 applic DAILY TOP Last administered on 03/18/19 08:27; Admin Dose 1 APPLIC; Start 03/12/19 at 14:00 Levalbuterol (Xopenex Neb) 0.63 mg Q6HWA RESP THERAPY HHN Last administered on 03/18/19 13:27; Admin Dose 0.63 MG; Start 03/12/19 at 20:00 Vancomycin HCl (Vanco Iv Per Pharmacy) VANCOMYCIN PER PHARMACY PER PROTOCOL XX ; Start 03/15/19 at 11:00 Vancomycin HCl 250 ml @ 125 mls/hr Q12H IVPB Last administered on 03/18/19at 13:56; Admin Dose 125 MLS/HR; Start 03/17/19 at 02:00 Diagnostic Test (Pha) (Accu-Chek) 1 ea Q4 XX Last administered on 03/18/19at 05:47; Admin Dose 1 EA; Start 03/17/19 at 17:00 Total Parenteral Nutrition 1,000 ml @ 55 mls/hr [id number] IV Last administered on 03/18/19at 10:52; Admin Dose 55 MLS/HR; Start 03/17/19 at 17:00 Methylprednisolone Sodium Succinate (Solu-Medrol) 10 mg DAILY IV ; Start 03/19/19 at 09:00 TANG ESQUEDA NP Mar 18, 2019 15:25
[2019-03-18] MEDS: OCTREOTIDE 50 MCG INJ SC SCH (20:33)
[2019-03-19] VITALS (18 sets, daily range): BP systolic 85–116; BP diastolic 54–78; PULSE 66–93; RESP 13–23
[2019-03-19] MEDS: LORAZEPAM 2 MG INJ IV PRN (00:25)
[2019-03-19] MEDS: ACCU-CHEK XX SCH ×6 (01:30→21:34)
[2019-03-19] MEDS: VANCOMYCIN 1 GM (PMX) 250 ML IVPB SCH ×2 (01:42→13:35)
[2019-03-19] MEDS: TPN 1,000 ML IV SCH (05:49)
[2019-03-19] MEDS: PANTOPRAZOLE 40 MG INJ IV SCH (05:49)
[2019-03-19] MEDS: LEVALBUTEROL (NEB) 0.63 MG/3 ML AMP HHN SCH ×3 (08:00→19:27)
[2019-03-19] MEDS: LACTOBACILLUS RHAMNOSUS CAP PO SCH (08:01)
[2019-03-19] MEDS: BENZTROPINE 1 MG TAB PO SCH ×2 (08:01→21:33)
[2019-03-19] MEDS: FOLIC ACID 1 MG TAB PO SCH (08:01)
[2019-03-19] MEDS: DOCUSATE SODIUM 100 MG CAP PO SCH ×2 (08:01→21:00)
[2019-03-19] MEDS: SENNA TAB PO SCH ×2 (08:02→21:33)
[2019-03-19] MEDS: MULTIVITAMINS THERAPEUTIC TAB PO SCH (08:02)
[2019-03-19] MEDS: ASCORBIC ACID 500 MG TAB PO SCH (08:02)
[2019-03-19] MEDS: MIDODRINE 5 MG TAB PO SCH ×3 (08:02→21:33)
[2019-03-19] MEDS: QUETIAPINE 25 MG TAB PO SCH ×2 (08:02→21:33)
[2019-03-19] MEDS: BALSAM PERU/CASTOR OIL 60 GM TUBE TOP SCH ×3 (08:30→21:34)
[2019-03-19] MEDS: COLLAGENASE 5 GM (UD JAR) TOP SCH (08:30)
[2019-03-19] MEDS: CEFEPIME 1GM/50 ML (PMX) 50 ML IV SCH ×2 (08:30→21:26)
[2019-03-19] MEDS: ENOXAPARIN 40 MG/0.4 ML SYG SC SCH (08:34)
[2019-03-19] MEDS ORDERED: METHYLPREDNISOLONE 40 MG INJ IV SCH (09:00)
--- NOTE | 2019-03-19 11:37 | PN ---
Date/Time of Note Date/Time of Note DATE: 03/19/19 TIME: 11:36 Objective Vitals Vital Signs Date Temp Pulse Resp B/P (MAP) Pulse Ox O2 O2 Flow FiO2 Time Delivery Rate 03/19/19 70 17 98 21 08:00 03/19/19 97.8 86/54 (65) Room Air 07:57 Intake and Output 03/18/19 03/18/19 03/19/19 1515:00 23:00 07:00 IntakeIntake Total 4 ml 50 ml 250 ml OutputOutput Total 220 ml 1053 ml 1100 ml BalanceBalance -216 ml -1003 ml -850 ml Results Result Diagram: 03/19/19 0507 03/19/19 0507 Medications Medications Current Medications Acetaminophen/ Codeine Phosphate (Tylenol No.3) 1 tab Q8H PRN PO PAIN LEVEL 1- 10/10; Start 03/11/19 at 14:30 Alprazolam (Xanax) 0.5 mg Q8H PRN PO ANXIETY; Start 03/11/19 at 14:30 Ascorbic Acid (Vitamin C) 500 mg DAILY PO ; Start 03/12/19 at 09:00 Benztropine Mesylate (Cogentin) 1 mg Q12H PO ; Start 03/11/19 at 21:00 Docusate Sodium (Colace) 100 mg BID PO ; Start 03/11/19 at 21:00 Folic Acid (Folic Acid) 1 mg DAILY PO ; Start 03/12/19 at 09:00 Midodrine (Proamatine) 5 mg TID PO ; Start 03/11/19 at 21:00 Octreotide Acetate (Sandostatin) 50 mcg QHS SC Last administered on 03/18/19at 20:33; Admin Dose 50 MCG; Start 03/11/19 at 21:00 Quetiapine Fumarate (Seroquel) 50 mg BID PO ; Start 03/11/19 at 21:00 Senna (Senokot) 2 tab BID PO ; Start 03/11/19 at 21:00 IV Flush (NS 3 ml) 3 ml PER PROTOCOL IV ; Start 03/11/19 at 14:30 Ondansetron HCl (Zofran Inj) 4 mg Q6H PRN IV NAUSEA/VOMITING; Start 03/11/19 at 14:30 Acetaminophen (Tylenol Tab) 650 mg Q6H PRN PO .PAIN 1-3 OR TEMP; Start 03/11/19 at 14:30 Enoxaparin Sodium (Lovenox) 40 mg DAILY SC Last administered on 03/19/19 08:34 ; Admin Dose 40 MG; Start 03/12/19 at 09:00; Status Hold Cefepime HCl 50 ml @ 100 mls/hr Q12 IV Last administered on 03/19/19 08:30; Admin Dose 100 MLS/HR; Start 03/11/19 at 21:00 Albuterol/ Ipratropium (Duoneb) 3 ml Q2H RESP THERAPY PRN NEB SHORTNESS OF BREATH Last administered on 03/14/19 08:37; Admin Dose 3 ML; Start 03/11/19 at 14:30 Acetaminophen (Tylenol Supp) 650 mg Q4H PRN [place] MILD PAIN(1-3) OR TEMP>38C; Start 03/11/19 at 15:00 Multivitamins Therapeutic (Theragran) 1 tab DAILY PO ; Start 03/12/19 at 09:00 Lactobacillus Acidophilus/ Rhamnosus (Culturelle) 1 cap DAILY PO ; Start at 09:00 Pantoprazole (Protonix Iv) 40 mg DAILY@06 IV Last administered on 03/19/19 05:49; Admin Dose 40 MG; Start 03/12/19 at 06:00 Lorazepam (Ativan) 1 mg Q4H PRN IV AGITATION Last administered on 03/19/19 00:25; Admin Dose 1 MG; Start 03/12/19 at 09:30 Morphine Sulfate (morphine) 0.5 mg Q4H PRN IV SEVERE PAIN LEVEL 7-10; Start 03/12/19 at 09:00 Petrolatum (Vaseline) 1 applic BID PRN TOP DRY MOUTH Last administered on 03/12/19 10:36; Admin Dose 1 APPLIC; Start 03/12/19 at 10:00 Collagenase (Santyl) 1 applic DAILY TOP Last administered on 03/19/19 08:30; Admin Dose 1 APPLIC; Start 03/12/19 at 14:00 Levalbuterol (Xopenex Neb) 0.63 mg Q6HWA RESP THERAPY HHN Last administered on 03/19/19 08:00; Admin Dose 0.63 MG; Start 03/12/19 at 20:00 Vancomycin HCl (Vanco Iv Per Pharmacy) VANCOMYCIN PER PHARMACY PER PROTOCOL XX ; Start 03/15/19 at 11:00 Vancomycin HCl 250 ml @ 125 mls/hr Q12H IVPB Last administered on 03/19/19at 01:42; Admin Dose 125 MLS/HR; Start 03/17/19 at 02:00 Diagnostic Test (Pha) (Accu-Chek) 1 ea Q4 XX Last administered on 03/19/19at 05:53; Admin Dose 1 EA; Start 03/17/19 at 17:00 Total Parenteral Nutrition 1,000 ml @ 55 mls/hr [id number] IV Last administered on 03/19/19at 05:49; Admin Dose 55 MLS/HR; Start 03/17/19 at 17:00 Methylprednisolone Sodium Succinate (Solu-Medrol) 10 mg DAILY IV Last administered on 03/19/19at 08:30; Admin Dose 10 MG; Start 03/19/19 at 09:00 VTE Prophylaxis Risk score (from Ns)>0 risk: 7 SCD applied (from Ns): Yes Lines/Catheters IV Catheter Type: Sanabria in Place: No Assessment/Plan Hospital Course Subjective 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 Neurological: Moves all extremities spontaneously Skin: No new skin lesions Assessment/Plan 1. Sepsis secondary to right sided pneumonia and UTI - remains afebrile with nl WBC - ID on board and appreciate recommendations - CXR showing improving PNA - improving. WBC normalized and remains afebrile - ID on board and appreciate recommendations. - Lactic acid normal. 2. Bilateral pneumonia, resolving - Pulmonology consultation appreciated - Speech evaluation appreciated and not ready for PO intake at this time. PEG tube planned 3. UTI - UA noted - urine culture growing proteus - IV antibiotics on board 4. Anemia - hgb stable - no verito bleeding appreciated 5. Downs syndrome - continue home medications - ativan PRN for agitation History of insulinoma -Continue octreotide and prednisone low-dose 6. Disposition -Follow-up with speech therapy recommendations, continue antibiotics, taper steroids. -Continue TPN peripherally for now, will get PEG tube today DILIP ROBERTSON Mar 19, 2019 11:37
[2019-03-19] MEDS ORDERED: SOD CHLORIDE 0.9% 1,000 ML IV ONE (12:00)
[2019-03-19] MEDS: METHYLPREDNISOLONE 40 MG INJ IV SCH (12:13)
--- NOTE | 2019-03-19 14:13 | PREAC ---
Date/Time of Note Date/Time of Note DATE: 03/19/19 TIME: 14:11 Anesthesia Eval and Record Evaluation Time Pre-Procedure Interview DATE: 03/19/19 TIME: 14:11 Age 43 Sex male NPO: 8 hrs Preoperative diagnosis DYSPHAGIA Planned procedure EGD WITH GASTROSTOMY TUBE Past Medical History Past Medical History: Includes Pulm: Other (PNEUMONIA) Neuro: Other (CONGENITAL DEFORMITY) Surgery & Anesthesia Issues No known issue Meds Anticoagulation: No Beta Yoli within 24 hr: No Reason Beta Yoli not given: Pt. not on B-Yoli Reported Medications Tuberculin,Purif.prot.deriv. (Tubersol) 5 Tub Unit/0.1 Ml Vial, 5 TUB ID ONCE, VIAL START DATE 03/14/19 AND END DATE 03/14/19 03/11/19 Alprazolam* (Xanax*) 0.5 Mg Tab, 0.5 MG PO Q8H PRN for ANXIETY, TAB FOR 14 DAYS, STOP DATE 03/17/19 03/11/19 Ascorbic Acid (Vitamin C) 500 Mg Tab, 500 MG PO DAILY, TAB 03/11/19 Balsam Garcia/[place] Oil (Venelex Ointment) 60 Gm Oint..gm., 1 APPLIC TOP DAILY, #1 TUB 03/11/19 Acetaminophen* (Acetaminophen*) 500 MG Extra Strength Tablet, 500 MG PO Q6H PRN for MILD PAIN(1-3)OR ELEVATED TEMP, TAB 03/11/19 Acetaminophen with Codeine (Acetaminophen-Cod #3 Tablet) 1 Each Tablet, 1 TAB PO Q8H PRN for PAIN LEVEL 1-10/10, #7 TAB 03/11/19 Quetiapine Fumarate* (Seroquel*) 50 Mg Tablet, 50 MG PO BID, TAB 03/11/19 Sennosides* (Senna Lax*) 8.6 Mg Tablet, 2 TAB PO BID, TAB 03/11/19 Protein Supplement (Promod) 946 Ml Liquid, 30 ML PO TID 03/11/19 Prednisone* (Prednisone*) 2.5 Mg Tablet, 2.5 MG PO DAILY, TAB 03/11/19 Pantoprazole* (Pantoprazole*) 40 Mg Tablet.dr, 40 MG PO AC BREAKFAST, TAB 03/11/19 Octreotide Acetate* (Octreotide Acetate*) 50 Mcg/1 Ml Disp.syrin, 50 MCG SC QHS, VIAL 03/11/19 Multivitamin with Minerals (Multivitamins with Minerals) 1 Each Tablet, 1 EACH PO DAILY, TAB 03/11/19 Midodrine* (Midodrine*) 5 Mg Tablet, 5 MG PO TID, TAB 03/11/19 Lactobacillus Acidophilus* (Lactinex*) 1 Tab Chew, 1 TAB PO DAILY, TAB 03/11/19 Folic Acid* (Folic Acid*) 1 Mg Tablet, 1 MG PO DAILY, TAB 03/11/19 Docusate Sodium* (Docusate Sodium*) 100 Mg Capsule, 100 MG PO BID, #60 CAP 03/11/19 Benztropine Mesylate* (Benztropine Mesylate*) 1 Mg Tablet, 1 MG PO Q12H, TAB 03/11/19 Current Medications Acetaminophen/ Codeine Phosphate (Tylenol No.3) 1 tab Q8H PRN PO PAIN LEVEL 1- 10/10; Start 03/11/19 at 14:30 Alprazolam (Xanax) 0.5 mg Q8H PRN PO ANXIETY; Start 03/11/19 at 14:30 Ascorbic Acid (Vitamin C) 500 mg DAILY PO ; Start 03/12/19 at 09:00 Benztropine Mesylate (Cogentin) 1 mg Q12H PO ; Start 03/11/19 at 21:00 Docusate Sodium (Colace) 100 mg BID PO ; Start 03/11/19 at 21:00 Folic Acid (Folic Acid) 1 mg DAILY PO ; Start 03/12/19 at 09:00 Midodrine (Proamatine) 5 mg TID PO ; Start 03/11/19 at 21:00 Octreotide Acetate (Sandostatin) 50 mcg QHS SC Last administered on 03/18/19at 20:33; Admin Dose 50 MCG; Start 03/11/19 at 21:00 Quetiapine Fumarate (Seroquel) 50 mg BID PO ; Start 03/11/19 at 21:00 Senna (Senokot) 2 tab BID PO ; Start 03/11/19 at 21:00 IV Flush (NS 3 ml) 3 ml PER PROTOCOL IV ; Start 03/11/19 at 14:30 Ondansetron HCl (Zofran Inj) 4 mg Q6H PRN IV NAUSEA/VOMITING; Start 03/11/19 at 14:30 Acetaminophen (Tylenol Tab) 650 mg Q6H PRN PO .PAIN 1-3 OR TEMP; Start 03/11/19 at 14:30 Enoxaparin Sodium (Lovenox) 40 mg DAILY SC Last administered on 03/19/19 08:34; Admin Dose 40 MG; Start 03/12/19 at 09:00; Status Hold Cefepime HCl 50 ml @ 100 mls/hr Q12 IV Last administered on 03/19/19 08:30; Admin Dose 100 MLS/HR; Start 03/11/19 at 21:00 Albuterol/ Ipratropium (Duoneb) 3 ml Q2H RESP THERAPY PRN NEB SHORTNESS OF BREATH Last administered on 03/14/19 08:37; Admin Dose 3 ML; Start 03/11/19 at 14:30 Acetaminophen (Tylenol Supp) 650 mg Q4H PRN [place] MILD PAIN(1-3) OR TEMP>38C; Start 03/11/19 at 15:00 Multivitamins Therapeutic (Theragran) 1 tab DAILY PO ; Start 03/12/19 at 09:00 Lactobacillus Acidophilus/ Rhamnosus (Culturelle) 1 cap DAILY PO ; Start 03/12/19 at 09:00 Pantoprazole (Protonix Iv) 40 mg DAILY@06 IV Last administered on 03/19/19 05:49; Admin Dose 40 MG; Start 03/12/19 at 06:00 Lorazepam (Ativan) 1 mg Q4H PRN IV AGITATION Last administered on 03/19/19 00:25; Admin Dose 1 MG; Start 03/12/19 at 09:30 Morphine Sulfate (morphine) 0.5 mg Q4H PRN IV SEVERE PAIN LEVEL 7-10; Start 03/12/19 at 09:00 Petrolatum (Vaseline) 1 applic BID PRN TOP DRY MOUTH Last administered on 03/12/19 10:36; Admin Dose 1 APPLIC; Start 03/12/19 at 10:00 Collagenase (Santyl) 1 applic DAILY TOP Last administered on 03/19/19 08:30; Admin Dose 1 APPLIC; Start 03/12/19 at 14:00 Levalbuterol (Xopenex Neb) 0.63 mg Q6HWA RESP THERAPY HHN Last administered on 7/19/19at 13:40; Admin Dose 0.63 MG; Start 03/12/19 at 20:00 Vancomycin HCl (Vanco Iv Per Pharmacy) VANCOMYCIN PER PHARMACY PER PROTOCOL XX ; Start 03/15/19 at 11:00 Vancomycin HCl 250 ml @ 125 mls/hr Q12H IVPB Last administered on 03/19/19 13:35; Admin Dose 125 MLS/HR; Start 03/17/19 at 02:00 Diagnostic Test (Pha) (Accu-Chek) 1 ea Q4 XX Last administered on 03/19/19at 05:53; Admin Dose 1 EA; Start 03/17/19 at 17:00 Total Parenteral Nutrition 1,000 ml @ 55 mls/hr [id number] IV Last administered on 03/19/19 05:49; Admin Dose 55 MLS/HR; Start 03/17/19 at 17:00 Methylprednisolone Sodium Succinate (Solu-Medrol) 5 mg DAILY IV Last administered on 03/19/19at 12:13; Admin Dose 5 MG; Start 03/19/19 at 13:00 Meds reviewed: Yes Allergies Coded Allergies: No Known Allergy (Unverified , 03/11/19) Allergies Reviewed: Yes Labs/Studies Labs Reviewed: Reviewed by anesthesiologist Result Diagram: 03/19/19 0507 03/19/19 0507 Laboratory Tests 03/19/19 05:07 test: N/A Pre-procedure Exam Last vitals Vital Signs Date Temp Pulse Resp B/P (MAP) Pulse Ox O2 O2 Flow FiO2 Time Delivery Rate 03/19/19 77 18 98 21 13:41 03/19/19 97.6 92/63 (73) Room Air 12:08 Airway: Adequate mouth opening, Adequate thyromental dist Mallampati: Mallampati II Teeth: Normal Lung: Normal Heart: Normal ASA Physical Status ASA physical status: 3 Emergency: None Planned Anesthetic General/MAC: MAC Planned Pain Management Parenteral pain med Pre-operative Attestations Prior to commencing anesthesia and surgery, the patient was re-evaluated, there was verification of: *The patient's identity *The results of appropriate recent lab work and preoperative vital signs *The above evaluation not changing prior to induction *Anesthetic plan, risk benefits, alternative and complications discussed with patient/family; questions answered; patient/family understands, accepts and wishes to proceed. ERWIN BAKER Mar 19, 2019 14:13
--- NOTE | 2019-03-19 14:16 | CONS ---
Assessment/Plan Assessment/Plan Hospital Course (Demo Recall) No acute changes over night, no fevers, looks comfortable Microbiology: Blood cultures negative urine culture grew Proteus Antimicrobials: Cefepime Vanco==> #9 Chest x-ray this morning revealed left basilar infiltrates unchanged, instead extensive consolidations throughout the right lung, unchanged Physical examination: This is a chronically ill-appearing middle-aged man who is in no distress head atraumatic normocephalic neck is supple chest rise symmetrical breath sounds diminished to bases heart S1-S2 abdomen soft bowel sounds hypoactive extremities without cyanosis skin patient has multiple chronic wounds one on the sacrum is healed to the other one on his hip is open Assessment: 1. Sepsis, present on admission 2. Healthcare associated pneumonia, possibly aspirated 3. Urinary tract infection, gram-negative rods 4. Chronic wounds 5. Down's syndrome Plan: Remains stable, completing antibiotics, pending PEG Consultation Date/Type/Reason Admit Date/Time Mar 11, 2019 at 14:30 Initial Consult Date Type of Consult id Requesting Provider: DILIP ROBERTSON Date/Time of Note DATE: 03/19/19 TIME: 14:14 Exam/Review of Systems Exam Vitals Vital Signs Date Temp Pulse Resp B/P (MAP) Pulse Ox O2 O2 Flow FiO2 Time Delivery Rate 03/19/19 77 18 98 21 13:41 03/19/19 97.6 92/63 (73) Room Air 12:08 Intake and Output 03/18/19 03/18/19 03/19/19 1515:00 23:00 07:00 IntakeIntake Total 4 ml 50 ml 250 ml OutputOutput Total 220 ml 1053 ml 1100 ml BalanceBalance -216 ml -1003 ml -850 ml Results Result Diagram: 03/19/19 0507 03/19/19 0507 Results 24hrs Laboratory Tests Test 03/18/19 16:39 03/18/19 20:35 03/19/19 01:22 03/19/19 05:07 Bedside Glucose 119 102 131 White Blood Count 8.1 Red Blood Count 4.19 L Hemoglobin 12.3 L Hematocrit 37.6 L Mean Corpuscular 89.7 Volume Mean Corpuscular 29.4 Hemoglobin Mean Corpuscular 32.7 Hemoglobin Concent Red Cell 17.7 H Distribution Width Platelet Count 443 H Mean Platelet Volume 9.6 Immature 5.900 H Granulocytes % Neutrophils % 47.4 Segmented 51 Neutrophils % (Manual) Band Neutrophils % 4 (Manual) Lymphocytes % 37.9 Lymphocytes % 29 (Manual) Reactive Lymphocytes 6 H % (Manual) Monocytes % 7.6 Monocytes % (Manual) 7 Eosinophils % 1.0 Eosinophils % 2 (Manual) Basophils % 0.2 Myelocytes % 1 H (Manual) Nucleated Red Blood 0.0 Cells % Immature 0.480 H Granulocytes # Neutrophils # 3.8 Neutrophils # 4.2 (Manual) Band Neutrophils # 0.3 Lymphocytes (Manual) 2.3 Lymphocytes # 3.1 H Reactive Lymphocytes 0.4 H # Monocytes # 0.6 Monocytes # (Manual) 0.5 Eosinophils # 0.1 Basophils # 0.0 Myelocytes # 0.0 Nucleated Red Blood 0.0 Cells # Platelet Estimate NORMAL Giant Platelets 2 H Anisocytosis 1+ Macrocytosis 1+ Spherocytes 1+ Sodium Level 136 Potassium Level 4.2 Chloride Level 101 Carbon Dioxide Level 29 Anion Gap 6 Blood Urea Nitrogen 14 Creatinine 0.29 L Est Glomerular > 60 Filtrat Rate mL/min Glucose Level 98 Calcium Level 8.4 Phosphorus Level 2.8 Magnesium Level 2.0 Test 03/19/19 05:51 03/19/19 08:29 03/19/19 11:48 Bedside Glucose 77 108 124 Medications Medication Current Medications Acetaminophen/ Codeine Phosphate (Tylenol No.3) 1 tab Q8H PRN PO PAIN LEVEL 1- 10/10; Start 03/11/19 at 14:30 Alprazolam (Xanax) 0.5 mg Q8H PRN PO ANXIETY; Start 03/11/19 at 14:30 Ascorbic Acid (Vitamin C) 500 mg DAILY PO ; Start 03/12/19 at 09:00 Benztropine Mesylate (Cogentin) 1 mg Q12H PO ; Start 03/11/19 at 21:00 Docusate Sodium (Colace) 100 mg BID PO ; Start 03/11/19 at 21:00 Folic Acid (Folic Acid) 1 mg DAILY PO ; Start 03/12/19 at 09:00 Midodrine (Proamatine) 5 mg TID PO ; Start 03/11/19 at 21:00 Octreotide Acetate (Sandostatin) 50 mcg QHS SC Last administered on 03/18/19at 20:33; Admin Dose 50 MCG; Start 03/11/19 at 21:00 Quetiapine Fumarate (Seroquel) 50 mg BID PO ; Start 03/11/19 at 21:00 Senna (Senokot) 2 tab BID PO ; Start 03/11/19 at 21:00 IV Flush (NS 3 ml) 3 ml PER PROTOCOL IV ; Start 03/11/19 at 14:30 Ondansetron HCl (Zofran Inj) 4 mg Q6H PRN IV NAUSEA/VOMITING; Start 03/11/19 at 14:30 Acetaminophen (Tylenol Tab) 650 mg Q6H PRN PO .PAIN 1-3 OR TEMP; Start 03/11/19 at 14:30 Enoxaparin Sodium (Lovenox) 40 mg DAILY SC Last administered on 03/19/19at 08:34; Admin Dose 40 MG; Start 03/12/19 at 09:00; Status Hold Cefepime HCl 50 ml @ 100 mls/hr Q12 IV Last administered on 03/19/19at 08:30; Admin Dose 100 MLS/HR; Start 03/11/19 at 21:00 Albuterol/ Ipratropium (Duoneb) 3 ml Q2H RESP THERAPY PRN NEB SHORTNESS OF BREATH Last administered on 03/14/19at 08:37; Admin Dose 3 ML; Start 03/11/19 at 14:30 Acetaminophen (Tylenol Supp) 650 mg Q4H PRN [place] MILD PAIN(1-3) OR TEMP>38C; Start 03/11/19 at 15:00 Multivitamins Therapeutic (Theragran) 1 tab DAILY PO ; Start 03/12/19 at 09:00 Lactobacillus Acidophilus/ Rhamnosus (Culturelle) 1 cap DAILY PO ; Start 03/12/19 at 09:00 Pantoprazole (Protonix Iv) 40 mg DAILY@06 IV Last administered on 03/19/19at 05:49; Admin Dose 40 MG; Start 03/12/19 at 06:00 Lorazepam (Ativan) 1 mg Q4H PRN IV AGITATION Last administered on 03/19/19at 00:25; Admin Dose 1 MG; Start 03/12/19 at 09:30 Morphine Sulfate (morphine) 0.5 mg Q4H PRN IV SEVERE PAIN LEVEL 7-10; Start 03/12/19 at 09:00 Petrolatum (Vaseline) 1 applic BID PRN TOP DRY MOUTH Last administered on 03/12/19 10:36; Admin Dose 1 APPLIC; Start 03/12/19 at 10:00 Collagenase (Santyl) 1 applic DAILY TOP Last administered on 03/19/19 08:30; Admin Dose 1 APPLIC; Start 03/12/19 at 14:00 Levalbuterol (Xopenex Neb) 0.63 mg Q6HWA RESP THERAPY HHN Last administered on 03/19/19 13:40; Admin Dose 0.63 MG; Start 03/12/19 at 20:00 Vancomycin HCl (Vanco Iv Per Pharmacy) VANCOMYCIN PER PHARMACY PER PROTOCOL XX ; Start 03/15/19 at 11:00 Vancomycin HCl 250 ml @ 125 mls/hr Q12H IVPB Last administered on 03/19/19 13:35; Admin Dose 125 MLS/HR; Start 03/17/19 at 02:00 Diagnostic Test (Pha) (Accu-Chek) 1 ea Q4 XX Last administered on 03/19/19 05:53; Admin Dose 1 EA; Start 03/17/19 at 17:00 Total Parenteral Nutrition 1,000 ml @ 55 mls/hr [id number] IV Last administered on 03/19/19 05:49; Admin Dose 55 MLS/HR; Start 03/17/19 at 17:00 Methylprednisolone Sodium Succinate (Solu-Medrol) 5 mg DAILY IV Last administered on 03/19/19 12:13; Admin Dose 5 MG; Start 03/19/19 at 13:00 TANG ESQUEDA NP Mar 19, 2019 14:16
[2019-03-19] MEDS ORDERED: LIDOCAINE 2% (SDV) 5 ML INJ ONE (14:28)
[2019-03-19] MEDS ORDERED: PROPOFOL 20 ML ONE (14:28)
--- NOTE | 2019-03-19 14:40 | PAC ---
Date/Time of Note Date/Time of Note DATE: 03/19/19 TIME: 14:40 Post-Anesthesia Notes Post-Anesthesia Note Last documented vital signs Vital Signs Date Temp Pulse Resp B/P (MAP) Pulse Ox O2 O2 Flow FiO2 Time Delivery Rate 03/19/19 97.9 77 18 115/76 98 21 1440 03/19/19 97.6 92/63 (73) Room Air 12:08 Activity: WNL Respiratory function: WNL Cardiovascular function: WNL Mental status: Baseline Pain reasonably controlled: Yes Hydration appropriate: Yes Nausea/Vomiting absent: Yes ERWIN BAKER Mar 19, 2019 14:40
[2019-03-19] MEDS ORDERED: FENTAnyl 50 MCG/ML VIAL IV PRN (15:00)
[2019-03-19] MEDS ORDERED: LABETALOL HCL 20MG INJ IV PRN (15:00)
[2019-03-19] MEDS ORDERED: EPHEDrine 25 MG/5 ML SYG IV PRN (15:00)
[2019-03-19] MEDS ORDERED: ONDANSETRON 4 MG INJ IV PRN (15:00)
[2019-03-19] MEDS ORDERED: DIPHENHYDRAMINE 50 MG INJ IV PRN (15:00)
[2019-03-19] MEDS ORDERED: hydrALAzine 20 MG INJ IV PRN (15:00)
[2019-03-19] MEDS ORDERED: MIDAZOLAM 1 MG/ML 2 ML INJ IV PRN (15:00)
--- NOTE | 2019-03-19 15:59 | PN ---
DATE: 03/19/2019 REASON FOR FOLLOWUP: Respiratory distress. SUBJECTIVE: Mr. Nguyen is stable this morning. No respiratory distress, status post PEG tube placeme nt. PHYSICAL EXAMINATION: VITAL SIGNS: Temperature 98, pulse 82, blood pressure 95/69, O2 saturation 96% on room air. NECK: Supple. No JVD or lymphadenopathy. CARDIAC: S1, S2, no added sounds or murmurs. CHEST: Diminished air entry bilaterally. ABDOMEN: Soft, nontender. No guarding or rebound. EXTREMITIES: No cyanosis, clubbing or edema. NEUROLOGIC: Generalized weakness. LABORATORY DATA: White count 8.1, hemoglobin 12.3. Chemistry: BUN 14, creatinine 0.29. IMPRESSION: 1. Dysphagia, status post percutaneous endoscopic gastrostomy tube placement. 2. History of Down syndrome. 3. History of aspiration pneumonia. PLAN: 1. Tube feeding as tolerated. 2. Discharge to retirement facility tomorrow with tube feeding adequately tolerated, and patien t remains stable. Dictated By: JOE SHAHID MD SV/JEFFREY Conf#: [id number] DID#: [id number] CC: MANDO LUCAS MD;*EndCC*
[2019-03-19] MEDS: OCTREOTIDE 50 MCG INJ SC SCH (21:44)
[2019-03-20] MEDS: TPN 1,000 ML IV SCH (00:06)
[2019-03-20] MEDS: ACCU-CHEK XX SCH ×3 (01:29→09:00)
[2019-03-20] MEDS: VANCOMYCIN 1 GM (PMX) 250 ML IVPB SCH ×2 (02:27→13:31)
[2019-03-20 04:00] VITALS: BP 105/72; PULSE 95; RESP 18
[2019-03-20] MEDS: PANTOPRAZOLE 40 MG INJ IV SCH (05:31)
[2019-03-20 07:17] VITALS: BP 97/65; PULSE 82; RESP 18
[2019-03-20] MEDS: LEVALBUTEROL (NEB) 0.63 MG/3 ML AMP HHN SCH ×3 (08:49→20:08)
[2019-03-20] MEDS: DOCUSATE SODIUM 100 MG CAP PO SCH ×2 (09:42→20:38)
[2019-03-20] MEDS: SENNA TAB PO SCH ×2 (09:42→20:38)
[2019-03-20] MEDS: BENZTROPINE 1 MG TAB PO SCH ×2 (09:43→20:38)
[2019-03-20] MEDS: ASCORBIC ACID 500 MG TAB PO SCH (09:43)
[2019-03-20] MEDS: MIDODRINE 5 MG TAB PO SCH ×3 (09:43→20:39)
[2019-03-20] MEDS: FOLIC ACID 1 MG TAB PO SCH (09:43)
[2019-03-20] MEDS: MULTIVITAMINS THERAPEUTIC TAB PO SCH (09:43)
[2019-03-20] MEDS: METHYLPREDNISOLONE 40 MG INJ IV SCH (09:44)
[2019-03-20] MEDS: COLLAGENASE 5 GM (UD JAR) TOP SCH (09:44)
[2019-03-20] MEDS: LACTOBACILLUS RHAMNOSUS CAP PO SCH (09:44)
[2019-03-20] MEDS: QUETIAPINE 25 MG TAB PO SCH ×2 (09:46→20:38)
[2019-03-20] MEDS: CEFEPIME 1GM/50 ML (PMX) 50 ML IV SCH (09:57)
--- NOTE | 2019-03-20 09:57 | PN ---
Date/Time of Note Date/Time of Note DATE: 03/20/19 TIME: 09:55 Objective Vitals Vital Signs Date Temp Pulse Resp B/P (MAP) Pulse Ox O2 O2 Flow FiO2 Time Delivery Rate 03/20/19 95 21 08:51 03/20/19 88 22 08:50 03/20/19 Nasal 4.0 07:30 Cannula 03/20/19 97.9 97/65 (76) 07:17 Intake and Output 03/19/19 03/19/19 03/20/19 1515:00 23:00 07:00 IntakeIntake Total 4 ml 1900 ml 250 ml OutputOutput Total 1400 ml 1650 ml BalanceBalance 4 ml 500 ml -1400 ml Results Result Diagram: 03/20/1952003/20/19520 Medications Medications Current Medications Acetaminophen/ Codeine Phosphate (Tylenol No.3) 1 tab Q8H PRN PO PAIN LEVEL 1- 10/10; Start 03/11/19 at 14:30 Alprazolam (Xanax) 0.5 mg Q8H PRN PO ANXIETY; Start 03/11/19 at 14:30 Ascorbic Acid (Vitamin C) 500 mg DAILY PO Last administered on 03/20/19at 09:43; Admin Dose 500 MG; Start 03/12/19 at 09:00 Benztropine Mesylate (Cogentin) 1 mg Q12H PO Last administered on 03/20/19at 09:43; Admin Dose 1 MG; Start 03/11/19 at 21:00 Docusate Sodium (Colace) 100 mg BID PO Last administered on 03/20/19 09:42; Admin Dose 100 MG; Start 03/11/19 at 21:00 Folic Acid (Folic Acid) 1 mg DAILY PO Last administered on 03/20/19 09:43; Admin Dose 1 MG; Start 03/12/19 at 09:00 Midodrine (Proamatine) 5 mg TID PO Last administered on 03/20/19 09:43; Admin Dose 5 MG; Start 03/11/19 at 21:00 Octreotide Acetate (Sandostatin) 50 mcg QHS SC Last administered on 03/19/19at 21:44; Admin Dose 50 MCG; Start 03/11/19 at 21:00 Quetiapine Fumarate (Seroquel) 50 mg BID PO Last administered on 03/20/19 09:46; Admin Dose 50 MG; Start 03/11/19 at 21:00 Senna (Senokot) 2 tab BID PO Last administered on 03/20/19 09:42; Admin Dose 2 TAB; Start 03/11/19 at 21:00 IV Flush (NS 3 ml) 3 ml PER PROTOCOL IV ; Start 03/11/19 at 14:30 Ondansetron HCl (Zofran Inj) 4 mg Q6H PRN IV NAUSEA/VOMITING; Start 03/11/19 at 14:30 Acetaminophen (Tylenol Tab) 650 mg Q6H PRN PO .PAIN 1-3 OR TEMP; Start 03/11/19 at 14:30 Enoxaparin Sodium (Lovenox) 40 mg DAILY SC Last administered on 03/19/19 08:34; Admin Dose 40 MG; Start 03/12/19 at 09:00 Cefepime HCl 50 ml @ 100 mls/hr Q12 IV Last administered on 03/19/19 21:26; Admin Dose 100 MLS/HR; Start 03/11/19 at 21:00 Albuterol/ Ipratropium (Duoneb) 3 ml Q2H RESP THERAPY PRN NEB SHORTNESS OF BREATH Last administered on 03/14/19 08:37; Admin Dose 3 ML; Start 03/11/19 at 14:30 Acetaminophen (Tylenol Supp) 650 mg Q4H PRN AR MILD PAIN(1-3) OR TEMP>38C; Start 03/11/19 at 15:00 Multivitamins Therapeutic (Theragran) 1 tab DAILY PO Last administered on 03/20/19 09:43; Admin Dose 1 TAB; Start 03/12/19 at 09:00 Lactobacillus Acidophilus/ Rhamnosus (Culturelle) 1 cap DAILY PO Last administered on 03/20/19 09:44; Admin Dose 1 CAP; Start 03/12/19 at 09:00 Pantoprazole (Protonix Iv) 40 mg DAILY@06 IV Last administered on 03/20/19 05:31; Admin Dose 40 MG; Start 03/12/19 at 06:00 Lorazepam (Ativan) 1 mg Q4H PRN IV AGITATION Last administered on 03/19/19 00:25; Admin Dose 1 MG; Start 03/12/19 at 09:30 Morphine Sulfate (morphine) 0.5 mg Q4H PRN IV SEVERE PAIN LEVEL 7-10; Start 03/12/19 at 09:00 Petrolatum (Vaseline) 1 applic BID PRN TOP DRY MOUTH Last administered on 03/12/19 10:36; Admin Dose 1 APPLIC; Start 03/12/19 at 10:00 Collagenase (Santyl) 1 applic DAILY TOP Last administered on 03/20/19 09:44; Admin Dose 1 APPLIC; Start 03/12/19 at 14:00 Levalbuterol (Xopenex Neb) 0.63 mg Q6HWA RESP THERAPY HHN Last administered on 03/20/19 08:49; Admin Dose 0.63 MG; Start 03/12/19 at 20:00 Vancomycin HCl (Vanco Iv Per Pharmacy) VANCOMYCIN PER PHARMACY PER PROTOCOL XX ; Start 03/15/19 at 11:00 Vancomycin HCl 250 ml @ 125 mls/hr Q12H IVPB Last administered on 03/20/19 02:27; Admin Dose 125 MLS/HR; Start 03/17/19 at 02:00 Diagnostic Test (Pha) (Accu-Chek) 1 ea Q4 XX Last administered on 03/20/19 05:31; Admin Dose 1 EA; Start 03/17/19 at 17:00 Total Parenteral Nutrition 1,000 ml @ 55 mls/hr [id number] IV Last administered on 03/20/19 00:06; Admin Dose 55 MLS/HR; Start 03/17/19 at 17:00 Methylprednisolone Sodium Succinate (Solu-Medrol) 5 mg DAILY IV Last administered on 03/20/19 09:44; Admin Dose 5 MG; Start 03/19/19 at 13:00 VTE Prophylaxis Risk score (from Nsg)>0 risk: 7 SCD applied (from Nsg): Yes Lines/Catheters IV Catheter Type: [place] in Place: No Assessment/Plan Hospital Course Subjective 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 Neurological: Moves all extremities spontaneously Skin: No new skin lesions Assessment/Plan Sepsis secondary to right sided pneumonia and UTI - remains afebrile with nl WBC - ID on board and appreciate recommendations - CXR showing improving PNA - improving. WBC normalized and remains afebrile - ID on board and appreciate recommendations. - Lactic acid normal. Bilateral pneumonia, resolving - Pulmonology consultation appreciated - Speech evaluation appreciated and not ready for PO intake at this time. PEG tube placed UTI - UA noted - urine culture growing proteus - IV antibiotics on board Anemia - hgb stable - no verito bleeding appreciated Downs syndrome - continue home medications - ativan PRN for agitation History of insulinoma -Continue octreotide and prednisone low-dose Disposition -Follow-up with speech therapy recommendations, continue antibiotics, taper ster oids. -Continue TPN peripherally for now, transition to PEG feeding. DILIP ROBERTSON Mar 20, 2019 09:57
[2019-03-20] MEDS: BALSAM PERU/CASTOR OIL 60 GM TUBE TOP SCH ×3 (10:02→20:51)
[2019-03-20] MEDS: ENOXAPARIN 40 MG/0.4 ML SYG SC SCH (10:05)
--- NOTE | 2019-03-20 10:41 | PN ---
Date/Time of Note Date/Time of Note DATE: 03/20/19 TIME: 10:39 Assessment/Plan VTE Prophylaxis Risk score (from Ns)>0 risk: 7 SCD applied (from Ns): Yes Pharmacological prophylaxis: other (scds) Lines/Catheters IV [facility] Type [facility]from [facility] Urinary Cath still in place: No Assessment/Plan Hospital Course Summary Assessment and Plan: Assessment: Failure to thrive/dysphagia -S/p PEG 03/19/19 -Uneventful PEG placement Down syndrome Cerebral palsy Sepsis secondary to pneumonia and UTI UTI Bilateral pneumonia, resolving Bilateral blindness History of episodic hypoglycemia had impression of insulinoma- on Octreotide History of exp lap , duodenectomy, excision of bowel in 05/2017 Plan: TF to goal rate as tolerated PEG care daily and PRN GI will sign off but will be available upon reconsult as needed Patient seen in collaboration with Dr. Hoosk Subjective: Course reviewed with nursing staff Patient interviewed and examined All labs, imaging and other results reviewed Pt appears stable, plan to start TF this am No over night events. Continue current plan of care Exam PHYSICAL EXAMINATION: GENERAL: Non-verbal, chromically ill appears, contracted SKIN: No lesions EYES: No discharge. EARS/NOSE AND THROAT: Ears normal, nose normal, NECK: Supple, no masses CHEST: Inspection within normal limits. CARDIOVASCULAR: Heart: Regular rate and rhythm RESPIRATORY: Diminished/Rales GASTROINTESTINAL AND LIVER: Abdomen: Soft, non tenderness, non-distended, no hernias, no masses, normoactive bowel sounds. Rectal: Deferred. EXTREMITIES: No cyanosis, clubbing or edema. Result Diagram: 03/20/1952003/20/19520 Results 24hrs Laboratory Tests Test 03/19/19 11:48 03/19/19 16:37 03/19/19 21:37 03/20/19 01:15 Bedside Glucose 124 112 100 133 Test 03/20/19 05:21 03/20/19 05:30 03/20/19 10:27 White Blood Count 10.5 # Red Blood Count 4.00 L Hemoglobin 11.7 L Hematocrit 36.5 L Mean Corpuscular 91.3 Volume Mean Corpuscular 29.3 Hemoglobin Mean Corpuscular 32.1 Hemoglobin Concent Red Cell 17.9 H Distribution Width Platelet Count 439 H Mean Platelet Volume 9.9 Immature 5.800 H Granulocytes % Neutrophils % Lymphocytes % Monocytes % Eosinophils % Basophils % Nucleated Red Blood 0.0 Cells % Immature 0.610 H Granulocytes # Neutrophils # Lymphocytes # Monocytes # Eosinophils # Basophils # Nucleated Red Blood Cells # Sodium Level 136 Potassium Level 4.3 Chloride Level 102 Carbon Dioxide Level 30 Anion Gap 4 L Blood Urea Nitrogen 16 Creatinine 0.31 L Est Glomerular > 60 Filtrat Rate mL/min Glucose Level 86 Calcium Level 8.3 L Phosphorus Level 3.1 Magnesium Level 2.1 Bedside Glucose 99 92 Exam/Review of Systems Exam Vitals Vital Signs Date Temp Pulse Resp B/P (MAP) Pulse Ox O2 O2 Flow FiO2 Time Delivery Rate 03/20/19 95 21 08:51 03/20/19 88 22 08:50 03/20/19 Nasal 4.0 07:30 Cannula 03/20/19 97.9 97/65 (76) 07:17 Intake and Output 03/19/19 03/19/19 03/20/19 1515:00 23:00 07:00 IntakeIntake Total 4 ml 1900 ml 250 ml OutputOutput Total 1400 ml 1650 ml BalanceBalance 4 ml 500 ml -1400 ml Results Results 24hrs Laboratory Tests Test 03/19/19 11:48 03/19/19 16:37 03/19/19 21:37 03/20/19 01:15 Bedside Glucose 124 112 100 133 Test 03/20/19 05:21 03/20/19 05:30 03/20/19 10:27 White Blood Count 10.5 # Red Blood Count 4.00 L Hemoglobin 11.7 L Hematocrit 36.5 L Mean Corpuscular 91.3 Volume Mean Corpuscular 29.3 Hemoglobin Mean Corpuscular 32.1 Hemoglobin Concent Red Cell 17.9 H Distribution Width Platelet Count 439 H Mean Platelet Volume 9.9 Immature 5.800 H Granulocytes % Neutrophils % Lymphocytes % Monocytes % Eosinophils % Basophils % Nucleated Red Blood 0.0 Cells % Immature 0.610 H Granulocytes # Neutrophils # Lymphocytes # Monocytes # Eosinophils # Basophils # Nucleated Red Blood Cells # Sodium Level 136 Potassium Level 4.3 Chloride Level 102 Carbon Dioxide Level 30 Anion Gap 4 L Blood Urea Nitrogen 16 Creatinine 0.31 L Est Glomerular > 60 Filtrat Rate mL/min Glucose Level 86 Calcium Level 8.3 L Phosphorus Level 3.1 Magnesium Level 2.1 Bedside Glucose 99 92 Medications Medication Current Medications Acetaminophen/ Codeine Phosphate (Tylenol No.3) 1 tab Q8H PRN PO PAIN LEVEL 1- 10/10; Start 03/11/19 at 14:30 Alprazolam (Xanax) 0.5 mg Q8H PRN PO ANXIETY; Start 03/11/19 at 14:30 Ascorbic Acid (Vitamin C) 500 mg DAILY PO Last administered on 03/20/19 09:43; Admin Dose 500 MG; Start 03/12/19 at 09:00 Benztropine Mesylate (Cogentin) 1 mg Q12H PO Last administered on 03/20/19 09:43; Admin Dose 1 MG; Start 03/11/19 at 21:00 Docusate Sodium (Colace) 100 mg BID PO Last administered on 03/20/19 09:42; Admin Dose 100 MG; Start 03/11/19 at 21:00 Folic Acid (Folic Acid) 1 mg DAILY PO Last administered on 03/20/19 09:43; Admin Dose 1 MG; Start 03/12/19 at 09:00 Midodrine (Proamatine) 5 mg TID PO Last administered on 03/20/19 09:43; Admin Dose 5 MG; Start 03/11/19 at 21:00 Octreotide Acetate (Sandostatin) 50 mcg QHS SC Last administered on 03/19/19 21:44; Admin Dose 50 MCG; Start 03/11/19 at 21:00 Quetiapine Fumarate (Seroquel) 50 mg BID PO Last administered on 03/20/19 09:46; Admin Dose 50 MG; Start 03/11/19 at 21:00 Senna (Senokot) 2 tab BID PO Last administered on 03/20/19 09:42; Admin Dose 2 TAB; Start 03/11/19 at 21:00 IV Flush (NS 3 ml) 3 ml PER PROTOCOL IV ; Start 03/11/19 at 14:30 Ondansetron HCl (Zofran Inj) 4 mg Q6H PRN IV NAUSEA/VOMITING; Start 03/11/19 at 14:30 Acetaminophen (Tylenol Tab) 650 mg Q6H PRN PO .PAIN 1-3 OR TEMP; Start 03/11/19 at 14:30 Enoxaparin Sodium (Lovenox) 40 mg DAILY SC Last administered on 03/20/19 10:05; Admin Dose 40 MG; Start 03/12/19 at 09:00 Cefepime HCl 50 ml @ 100 mls/hr Q12 IV Last administered on 03/20/19 09:57; Admin Dose 100 MLS/HR; Start 03/11/19 at 21:00 Albuterol/ Ipratropium (Duoneb) 3 ml Q2H RESP THERAPY PRN NEB SHORTNESS OF BREATH Last administered on 03/14/19 08:37; Admin Dose 3 ML; Start 03/11/19 at 14:30 Acetaminophen (Tylenol Supp) 650 mg Q4H PRN MA MILD PAIN(1-3) OR TEMP>38C; Start 03/11/19 at 15:00 Multivitamins Therapeutic (Theragran) 1 tab DAILY PO Last administered on 03/20/19 09:43; Admin Dose 1 TAB; Start 03/12/19 at 09:00 Lactobacillus Acidophilus/ Rhamnosus (Culturelle) 1 cap DAILY PO Last admi nistered on 03/20/19 09:44; Admin Dose 1 CAP; Start 03/12/19 at 09:00 Pantoprazole (Protonix Iv) 40 mg DAILY@06 IV Last administered on 03/20/19 05:31; Admin Dose 40 MG; Start 03/12/19 at 06:00 Lorazepam (Ativan) 1 mg Q4H PRN IV AGITATION Last administered on 03/19/19 00:25; Admin Dose 1 MG; Start 03/12/19 at 09:30 Morphine Sulfate (morphine) 0.5 mg Q4H PRN IV SEVERE PAIN LEVEL 7-10; Start 03/12/19 at 09:00 Petrolatum (Vaseline) 1 applic BID PRN TOP DRY MOUTH Last administered on 03/12/19 10:36; Admin Dose 1 APPLIC; Start 03/12/19 at 10:00 Collagenase (Santyl) 1 applic DAILY TOP Last administered on 03/20/19 09:44; Admin Dose 1 APPLIC; Start 03/12/19 at 14:00 Levalbuterol (Xopenex Neb) 0.63 mg Q6HWA RESP THERAPY HHN Last administered on 03/20/19 08:49; Admin Dose 0.63 MG; Start 03/12/19 at 20:00 Vancomycin HCl (Vanco Iv Per Pharmacy) VANCOMYCIN PER PHARMACY PER PROTOCOL XX ; Start 03/15/19 at 11:00 Vancomycin HCl 250 ml @ 125 mls/hr Q12H IVPB Last administered on 03/20/19at 02:27; Admin Dose 125 MLS/HR; Start 03/17/19 at 02:00 Diagnostic Test (Pha) (Accu-Chek) 1 ea Q4 XX Last administered on 03/20/19at 09:00; Admin Dose 1 EA; Start 03/17/19 at 17:00 Total Parenteral Nutrition 1,000 ml @ 55 mls/hr [id number] IV Last administered on 03/20/19at 00:06; Admin Dose 55 MLS/HR; Start 03/17/19 at 17:00 Prednisone (Prednisone) 2.5 mg DAILY PEG ; Start 03/21/19 at 09:00 SHARON MANUEL Mar 20, 2019 10:41
[2019-03-20 11:16] VITALS: BP 108/58; PULSE 99; RESP 18
--- NOTE | 2019-03-20 13:54 | CONS ---
Assessment/Plan Assessment/Plan Hospital Course (Demo Recall) ID PROGRESS NOTE CURRENT ABX: DAY # 10 => Vanco IV + Cefepime 03/20/19 0521 03/20/19 0521 24H INTERVAL SUMMARY * POD#1 => s/p PEG 03/19/19 * Awake, resting in bed, calm, cooperative, VSS, NAD, without dyspnea DIAGNOSTIC IMAGING * 03/16/19 CXR: Interval decrease in patchy infiltrates throughout the right lung. Moderate perihilar residual remains. Stable patchy perihilar infiltrates in the left lower lung. MICRO * (-)MRSA Nares * 03/11/19 BCx (-) * 03/11/19 URINE CULTURE Final Organism 1 PROTEUS MIRABILIS COLONY COUNT >100,000 CFU/ml P. MIRAB M.I.C. RX --------- --- AMPICILLIN <=2 S CEFOTAXIME S CIPROFLOXACIN <=0.25 S GENTAMICIN <=1 S LEVOFLOXACIN <=0.12 S NITROFURANTOIN 128 R TOBRAMYCIN <=1 S TRIMETHOPRIM/SULFAMETHOXAZOLE <=20 S PHYSICAL EXAMINATION: GENERAL: VSS, NAD HEENT: AT, NC, NECK: Supple, CHEST: Rise symmetrical HEART: Pulse RRR ABDOMEN: Benign EXTREMITIES: Warm, dry SKIN: No rash, no diaphoresis ID ASSESSMENT 43 yo M admit with: 1. Sepsis, present on admission 2. Healthcare associated pneumonia, possibly aspirated 3. s/p Urinary tract infection, gram-negative rods 4. Chronic wounds 5. Down's syndrome 6. Failure to thrive, dysphagia * POD#1 => s/p PEG 03/19/19 7. Anemia (-)MRSA Nares ABX ALLERGIES: KNDA INVASIVES: PIV CURRENT ABX: DAY #10 =>Vanco IV + Cefepime ID RECOMMENDATIONS/PLAN: 1. DC ABX -- monitor off ABX 2. May DC OFF ABX as long as not recurrent concern for ASPIRATION event . Consultation Date/Type/Reason Admit Date/Time Mar 11, 2019 at 14:30 Initial Consult Date 03/17/19 Requesting Provider: DILIP ROBERTSON Date/Time of Note DATE: 03/20/19 TIME: 13:53 Exam/Review of Systems Exam Vitals Vital Signs Date Temp Pulse Resp B/P (MAP) Pulse Ox O2 O2 Flow FiO2 Time Delivery Rate 03/20/19 76 20 96 21 13:48 03/20/19 97.9 108/58 11:16 (75) 03/20/19 Nasal 4.0 07:30 Cannula Intake and Output 03/19/19 03/19/19 03/20/19 1515:00 23:00 07:00 IntakeIntake Total 4 ml 1900 ml 250 ml OutputOutput Total 1400 ml 1650 ml BalanceBalance 4 ml 500 ml -1400 ml Results Result Diagram: 03/20/19 0521 03/20/19 0521 Results 24hrs Laboratory Tests Test 03/19/19 16:37 03/19/19 21:37 03/20/19 01:15 03/20/19 05:21 Bedside Glucose 112 100 133 White Blood Count 10.5 # Red Blood Count 4.00 L Hemoglobin 11.7 L Hematocrit 36.5 L Mean Corpuscular 91.3 Volume Mean Corpuscular 29.3 Hemoglobin Mean Corpuscular 32.1 Hemoglobin Concent Red Cell 17.9 H Distribution Width Platelet Count 439 H Mean Platelet Volume 9.9 Immature 5.800 H Granulocytes % Neutrophils % Segmented 58 Neutrophils % (Manual) Band Neutrophils % 4 (Manual) Lymphocytes % Lymphocytes % 28 (Manual) Reactive Lymphocytes 7 H % (Manual) Monocytes % Monocytes % (Manual) 3 Eosinophils % Basophils % Nucleated Red Blood 0.0 Cells % Immature 0.610 H Granulocytes # Neutrophils # Neutrophils # 6.1 (Manual) Band Neutrophils # 0.4 Lymphocytes (Manual) 2.9 Lymphocytes # Reactive Lymphocytes 0.7 H # Monocytes # Monocytes # (Manual) 0.3 Eosinophils # Basophils # Nucleated Red Blood Cells # Platelet Estimate NORMAL Giant Platelets 3 H Poikilocytosis 3+ Anisocytosis 1+ Sodium Level 136 Potassium Level 4.3 Chloride Level 102 Carbon Dioxide Level 30 Anion Gap 4 L Blood Urea Nitrogen 16 Creatinine 0.31 L Est Glomerular > 60 Filtrat Rate mL/min Glucose Level 86 Calcium Level 8.3 L Phosphorus Level 3.1 Magnesium Level 2.1 Test 03/20/19 05:30 03/20/19 10:27 Bedside Glucose 99 92 Medications Medication Current Medications Acetaminophen/ Codeine Phosphate (Tylenol No.3) 1 tab Q8H PRN PO PAIN LEVEL 1- 1010; Start 03/11/19 at 14:30 Alprazolam (Xanax) 0.5 mg Q8H PRN PO ANXIETY; Start 03/11/19 at 14:30 Ascorbic Acid (Vitamin C) 500 mg DAILY PO Last administered on 03/20/19 09:43; Admin Dose 500 MG; Start 03/12/19 at 09:00 Benztropine Mesylate (Cogentin) 1 mg Q12H PO Last administered on 03/20/19 09:43; Admin Dose 1 MG; Start 03/11/19 at 21:00 Docusate Sodium (Colace) 100 mg BID PO Last administered on 03/20/19 09:42; Admin Dose 100 MG; Start 03/11/19 at 21:00 Folic Acid (Folic Acid) 1 mg DAILY PO Last administered on 03/20/19 09:43; Admin Dose 1 MG; Start 03/12/19 at 09:00 Midodrine (Proamatine) 5 mg TID PO Last administered on 03/20/19 12:55; Admin Dose 5 MG; Start 03/11/19 at 21:00 Octreotide Acetate (Sandostatin) 50 mcg QHS SC Last administered on 03/19/19 21:44; Admin Dose 50 MCG; Start 03/11/19 at 21:00 Quetiapine Fumarate (Seroquel) 50 mg BID PO Last administered on 03/20/19 09:46; Admin Dose 50 MG; Start 03/11/19 at 21:00 Senna (Senokot) 2 tab BID PO Last administered on 03/20/19 09:42; Admin Dose 2 TAB; Start 03/11/19 at 21:00 IV Flush (NS 3 ml) 3 ml PER PROTOCOL IV ; Start 03/11/19 at 14:30 Ondansetron HCl (Zofran Inj) 4 mg Q6H PRN IV NAUSEA/VOMITING; Start 03/11/19 at 14:30 Acetaminophen (Tylenol Tab) 650 mg Q6H PRN PO .PAIN 1-3 OR TEMP; Start 03/11/19 at 14:30 Enoxaparin Sodium (Lovenox) 40 mg DAILY SC Last administered on 03/20/19 10:05; Admin Dose 40 MG; Start 03/12/19 at 09:00 Cefepime HCl 50 ml @ 100 mls/hr Q12 IV Last administered on 03/20/19 09:57; Admin Dose 100 MLS/HR; Start 03/11/19 at 21:00 Albuterol/ Ipratropium (Duoneb) 3 ml Q2H RESP THERAPY PRN NEB SHORTNESS OF BREATH Last administered on 03/14/19 08:37; Admin Dose 3 ML; Start 03/11/19 at 14:30 Acetaminophen (Tylenol Supp) 650 mg Q4H PRN AR MILD PAIN(1-3) OR TEMP>38C; Start 03/11/19 at 15:00 Multivitamins Therapeutic (Theragran) 1 tab DAILY PO Last administered on 03/20/19 09:43; Admin Dose 1 TAB; Start 03/12/19 at 09:00 Lactobacillus Acidophilus/ Rhamnosus (Culturelle) 1 cap DAILY PO Last administered on 03/20/19 09:44; Admin Dose 1 CAP; Start 03/12/19 at 09:00 Pantoprazole (Protonix Iv) 40 mg DAILY@06 IV Last administered on 03/20/19 05:31; Admin Dose 40 MG; Start 03/12/19 at 06:00 Lorazepam (Ativan) 1 mg Q4H PRN IV AGITATION Last administered on 03/19/19 00:25; Admin Dose 1 MG; Start 03/12/19 at 09:30 Morphine Sulfate (morphine) 0.5 mg Q4H PRN IV SEVERE PAIN LEVEL 7-10; Start 03/12/19 at 09:00 Petrolatum (Vaseline) 1 applic BID PRN TOP DRY MOUTH Last administered on 03/12/19 10:36; Admin Dose 1 APPLIC; Start 03/12/19 at 10:00 Collagenase (Santyl) 1 applic DAILY TOP Last administered on 03/20/19 09:44; Admin Dose 1 APPLIC; Start 03/12/19 at 14:00 Levalbuterol (Xopenex Neb) 0.63 mg Q6HWA RESP THERAPY HHN Last administered on 03/20/19 13:47; Admin Dose 0.63 MG; Start 03/12/19 at 20:00 Vancomycin HCl (Vanco Iv Per Pharmacy) VANCOMYCIN PER PHARMACY PER PROTOCOL XX ; Start 03/15/19 at 11:00 Vancomycin HCl 250 ml @ 125 mls/hr Q12H IVPB Last administered on 7/20/19at 13:31; Admin Dose 125 MLS/HR; Start 03/17/19 at 02:00 Prednisone (Prednisone) 2.5 mg DAILY PEG ; Start 03/21/19 at 09:00 DARRELL SAN NP Mar 20, 2019 13:54
[2019-03-20 15:07] VITALS: BP 95/58; PULSE 99; RESP 18
[2019-03-20 20:00] VITALS: BP 95/60; PULSE 91; RESP 18
[2019-03-20] MEDS: OCTREOTIDE 50 MCG INJ SC SCH (20:51)
[2019-03-20 23:56] VITALS: BP 92/62; PULSE 90; RESP 18
[2019-03-21 04:00] VITALS: BP 102/60; PULSE 70; RESP 18
[2019-03-21] MEDS: LORAZEPAM 2 MG INJ IV PRN (04:48)
[2019-03-21] MEDS: PANTOPRAZOLE 40 MG INJ IV SCH (06:36)
[2019-03-21 07:13] VITALS: BP 97/66; PULSE 87; RESP 20
[2019-03-21] MEDS: LEVALBUTEROL (NEB) 0.63 MG/3 ML AMP HHN SCH ×3 (08:26→19:55)
[2019-03-21] MEDS: SENNA TAB PO SCH ×2 (08:53→21:41)
[2019-03-21] MEDS: MIDODRINE 5 MG TAB PO SCH ×3 (08:53→21:42)
[2019-03-21] MEDS: DOCUSATE SODIUM 100 MG CAP PO SCH ×2 (08:53→21:41)
[2019-03-21] MEDS: ASCORBIC ACID 500 MG TAB PO SCH (08:54)
[2019-03-21] MEDS: predniSONE 2.5 MG TAB PEG SCH (08:54)
[2019-03-21] MEDS: BENZTROPINE 1 MG TAB PO SCH ×2 (08:54→21:42)
[2019-03-21] MEDS: FOLIC ACID 1 MG TAB PO SCH (08:54)
[2019-03-21] MEDS: QUETIAPINE 25 MG TAB PO SCH ×2 (08:54→21:41)
[2019-03-21] MEDS: LACTOBACILLUS RHAMNOSUS CAP PO SCH (08:55)
[2019-03-21] MEDS: BALSAM PERU/CASTOR OIL 60 GM TUBE TOP SCH ×3 (08:55→21:43)
[2019-03-21] MEDS: MULTIVITAMINS THERAPEUTIC TAB PO SCH (08:55)
[2019-03-21] MEDS: COLLAGENASE 5 GM (UD JAR) TOP SCH (08:55)
[2019-03-21] MEDS: ENOXAPARIN 40 MG/0.4 ML SYG SC SCH (09:09)
--- NOTE | 2019-03-21 09:27 | PN ---
Date/Time of Note Date/Time of Note DATE: 03/21/19 TIME: 09:24 Objective Vitals Vital Signs Date Temp Pulse Resp B/P (MAP) Pulse Ox O2 O2 Flow FiO2 Time Delivery Rate 03/21/19 89 18 97 21 08:26 03/21/19 Nasal 4.0 07:28 Cannula 03/21/19 97.7 97/66 (76) 07:13 Intake and Output 03/20/19 03/20/19 03/21/19 1515:00 23:00 07:00 IntakeIntake Total 710 ml 250 ml 745 ml BalanceBalance 710 ml 250 ml 745 ml Results Result Diagram: 03/21/19 0505 03/21/19 0505 Medications Medications Current Medications Acetaminophen/ Codeine Phosphate (Tylenol No.3) 1 tab Q8H PRN PO PAIN LEVEL 1- 10/10; Start 03/11/19 at 14:30 Alprazolam (Xanax) 0.5 mg Q8H PRN PO ANXIETY; Start 03/11/19 at 14:30 Ascorbic Acid (Vitamin C) 500 mg DAILY PO Last administered on 03/21/19at 08:54; Admin Dose 500 MG; Start 03/12/19 at 09:00 Benztropine Mesylate (Cogentin) 1 mg Q12H PO Last administered on 03/21/19 08:54; Admin Dose 1 MG; Start 03/11/19 at 21:00 Docusate Sodium (Colace) 100 mg BID PO Last administered on 03/21/19 08:53; Admin Dose 100 MG; Start 03/11/19 at 21:00 Folic Acid (Folic Acid) 1 mg DAILY PO Last administered on 03/21/19 08:54; Admin Dose 1 MG; Start 03/12/19 at 09:00 Midodrine (Proamatine) 5 mg TID PO Last administered on 03/21/19 08:53; Admin Dose 5 MG; Start 03/11/19 at 21:00 Octreotide Acetate (Sandostatin) 50 mcg QHS SC Last administered on 03/20/19at 20:51; Admin Dose 50 MCG; Start 03/11/19 at 21:00 Quetiapine Fumarate (Seroquel) 50 mg BID PO Last administered on 03/21/19 08:54; Admin Dose 50 MG; Start 03/11/19 at 21:00 Senna (Senokot) 2 tab BID PO Last administered on 03/21/19 08:53; Admin Dose 2 TAB; Start 03/11/19 at 21:00 IV Flush (NS 3 ml) 3 ml PER PROTOCOL IV ; Start 03/11/19 at 14:30 Ondansetron HCl (Zofran Inj) 4 mg Q6H PRN IV NAUSEA/VOMITING; Start 03/11/19 at 14:30 Acetaminophen (Tylenol Tab) 650 mg Q6H PRN PO .PAIN 1-3 OR TEMP; Start 03/11/19 at 14:30 Enoxaparin Sodium (Lovenox) 40 mg DAILY SC Last administered on 03/21/19 09:09; Admin Dose 40 MG; Start 03/12/19 at 09:00 Albuterol/ Ipratropium (Duoneb) 3 ml Q2H RESP THERAPY PRN NEB SHORTNESS OF FLAKO ATH Last administered on 03/14/19 08:37; Admin Dose 3 ML; Start 03/11/19 at 14:30 Acetaminophen (Tylenol Supp) 650 mg Q4H PRN [place] MILD PAIN(1-3) OR TEMP>38C; Start 03/11/19 at 15:00 Multivitamins Therapeutic (Theragran) 1 tab DAILY PO Last administered on 03/21/19 08:55; Admin Dose 1 TAB; Start 03/12/19 at 09:00 Lactobacillus Acidophilus/ Rhamnosus (Culturelle) 1 cap DAILY PO Last administered on 03/21/19 08:55; Admin Dose 1 CAP; Start 03/12/19 at 09:00 Pantoprazole (Protonix Iv) 40 mg DAILY@06 IV Last administered on 03/21/19 06:36; Admin Dose 40 MG; Start 03/12/19 at 06:00 Lorazepam (Ativan) 1 mg Q4H PRN IV AGITATION Last administered on 03/21/19 04:48; Admin Dose 1 MG; Start 03/12/19 at 09:30 Morphine Sulfate (morphine) 0.5 mg Q4H PRN IV SEVERE PAIN LEVEL 7-10; Start 03/12/19 at 09:00 Petrolatum (Vaseline) 1 applic BID PRN TOP DRY MOUTH Last administered on 03/12/19 10:36; Admin Dose 1 APPLIC; Start 03/12/19 at 10:00 Collagenase (Santyl) 1 applic DAILY TOP Last administered on 03/21/19at 08:55; Admin Dose 1 APPLIC; Start 03/12/19 at 14:00 Levalbuterol (Xopenex Neb) 0.63 mg Q6HWA RESP THERAPY HHN Last administered on 03/21/19at 08:26; Admin Dose 0.63 MG; Start 03/12/19 at 20:00 Prednisone (Prednisone) 2.5 mg DAILY PEG Last administered on 03/21/19at 08:54; Admin Dose 2.5 MG; Start 03/21/19 at 09:00 VTE Prophylaxis Risk score (from Ns)>0 risk: 5 [place] 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 Neurological: Moves all extremities spontaneously Skin: No new skin lesions Assessment/Plan Leukocytosis -Patient's white count continues to slightly increased on a daily basis, not consistent with steroid use as patient was on high-dose steroids earlier this week with normal white count and was tapering down and is now on a very minuscule dose, does not correlate with increased steroids -Blood cultures, UA, chest x-ray ordered -Patient at consistent risk of aspiration pneumonia, will need to ensure stability of white count before discharge back to [facility] facility. Sepsis secondary to right sided pneumonia and UTI - remains afebrile - ID on board and appreciate recommendations - CXR showing improving PNA - improving - ID on board and appreciate recommendations. - Lactic acid normal. Bilateral pneumonia, resolving - Pulmonology consultation appreciated - Speech evaluation appreciated and not ready for PO intake at this time. PEG tube placed -Antibiotics discontinued from infectious disease UTI - UA noted - urine culture growing proteus -Antibiotics finished Anemia - hgb stable - no verito bleeding appreciated Downs syndrome - continue home medications - ativan PRN for agitation History of insulinoma -Continue octreotide and prednisone low-dose Disposition -Continue tube feeds, follow-up and monitor leukocytosis DILIP ROBERTSON Mar 21, 2019 09:27
[2019-03-21 11:32] VITALS: BP 97/58; PULSE 87; RESP 20
--- NOTE | 2019-03-21 11:46 | CONS ---
Consult Date/Type/Reason Admit Date/Time Mar 11, 2019 at 14:30 Initial Consult Date 03/17/19 Type of Consult Pulmonary Requesting Provider: DILIP ROBERTSON Date/Time of Note DATE: 03/21/19 TIME: 11:45 Subjective Patient stable this morning no respiratory distress. Awake alert. Objective Vital Signs Date Temp Pulse Resp B/P (MAP) Pulse Ox O2 O2 Flow FiO2 Time Delivery Rate 03/21/19 97.8 87 20 97/58 (71) 100 Room Air 11:32 03/21/19 08:26 03/21/19 4.0 07:28 Intake and Output 03/20/19 03/20/19 03/21/19 1515:00 23:00 07:00 IntakeIntake Total 710 ml 250 ml 745 ml BalanceBalance 710 ml 250 ml 745 ml Exam GENERAL: VITAL SIGNS: per chart NECK: Supple. No JVD or lymphadenopathy. CARDIAC EXAM: S1, S2. No added sounds or murmurs. CHEST: clear bilaterally, No added sounds, rales or wheezes ABDOMEN: Soft, nontender. No guarding or rebound. EXTREMITIES: No cyanosis, clubbing or edema. NEUROLOGIC: Generalized weakness. No focal deficits. Vent Setting Fraction of Inspired Oxygen pe: 21 Results/Medications Result Diagram: 03/21/19 0505 03/21/19 0505 Results 24 hrs Laboratory Tests Test 03/21/19 05:05 White Blood Count 11.4 H Red Blood Count 4.12 L Hemoglobin 12.1 L Hematocrit 37.9 L Mean Corpuscular Volume 92.0 Mean Corpuscular Hemoglobin 29.4 Mean Corpuscular Hemoglobin Concent 31.9 L Red Cell Distribution Width 19.1 H Platelet Count 401 Mean Platelet Volume 10.3 Immature Granulocytes % 4.200 H Neutrophils % 69.7 Lymphocytes % 18.1 Monocytes % 6.9 Eosinophils % 0.8 Basophils % 0.3 Nucleated Red Blood Cells % 0.0 Immature Granulocytes # 0.480 H Neutrophils # 8.0 H Lymphocytes # 2.1 Monocytes # 0.8 Eosinophils # 0.1 Basophils # 0.0 Nucleated Red Blood Cells # 0.0 Sodium Level 136 Potassium Level 4.2 Chloride Level 102 Carbon Dioxide Level 30 Anion Gap 4 L Blood Urea Nitrogen 16 Creatinine 0.31 L Est Glomerular Filtrat Rate mL/min > 60 Glucose Level 89 Calcium Level 8.5 Phosphorus Level 3.6 Magnesium Level 2.1 Medications Current Medications Acetaminophen/ Codeine Phosphate (Tylenol No.3) 1 tab Q8H PRN PO PAIN LEVEL 1- 10/10; Start 03/11/19 at 14:30 Alprazolam (Xanax) 0.5 mg Q8H PRN PO ANXIETY; Start 03/11/19 at 14:30 Ascorbic Acid (Vitamin C) 500 mg DAILY PO Last administered on 03/21/19 08:54; Admin Dose 500 MG; Start 03/12/19 at 09:00 Benztropine Mesylate (Cogentin) 1 mg Q12H PO Last administered on 03/21/19 08:54; Admin Dose 1 MG; Start 03/11/19 at 21:00 Docusate Sodium (Colace) 100 mg BID PO Last administered on 03/21/19 08:53; Admin Dose 100 MG; Start 03/11/19 at 21:00 Folic Acid (Folic Acid) 1 mg DAILY PO Last administered on 03/21/19 08:54; Admin Dose 1 MG; Start 03/12/19 at 09:00 Midodrine (Proamatine) 5 mg TID PO Last administered on 03/21/19 08:53; Admin Dose 5 MG; Start 03/11/19 at 21:00 Octreotide Acetate (Sandostatin) 50 mcg QHS SC Last administered on 03/20/19 20:51; Admin Dose 50 MCG; Start 03/11/19 at 21:00 Quetiapine Fumarate (Seroquel) 50 mg BID PO Last administered on 03/21/19 08:54; Admin Dose 50 MG; Start 03/11/19 at 21:00 Senna (Senokot) 2 tab BID PO Last administered on 03/21/19 08:53; Admin Dose 2 TAB; Start 03/11/19 at 21:00 IV Flush (NS 3 ml) 3 ml PER PROTOCOL IV ; Start 03/11/19 at 14:30 Ondansetron HCl (Zofran Inj) 4 mg Q6H PRN IV NAUSEA/VOMITING; Start 03/11/19 at 14:30 Acetaminophen (Tylenol Tab) 650 mg Q6H PRN PO .PAIN 1-3 OR TEMP; Start 03/11/19 at 14:30 Enoxaparin Sodium (Lovenox) 40 mg DAILY SC Last administered on 03/21/19 09:09; Admin Dose 40 MG; Start 03/12/19 at 09:00 Albuterol/ Ipratropium (Duoneb) 3 ml Q2H RESP THERAPY PRN NEB SHORTNESS OF BREATH Last administered on 03/14/19 08:37; Admin Dose 3 ML; Start 03/11/19 at 14:30 Acetaminophen (Tylenol Supp) 650 mg Q4H PRN [place] MILD PAIN(1-3) OR TEMP>38C; Start 03/11/19 at 15:00 Multivitamins Therapeutic (Theragran) 1 tab DAILY PO Last administered on 03/21/19 08:55; Admin Dose 1 TAB; Start 03/12/19 at 09:00 Lactobacillus Acidophilus/ Rhamnosus (Culturelle) 1 cap DAILY PO Last administered on 03/21/19 08:55; Admin Dose 1 CAP; Start 03/12/19 at 09:00 Pantoprazole (Protonix Iv) 40 mg DAILY@06 IV Last administered on 03/21/19 06:36; Admin Dose 40 MG; Start 03/12/19 at 06:00 Lorazepam (Ativan) 1 mg Q4H PRN IV AGITATION Last administered on 03/21/19 04:48; Admin Dose 1 MG; Start 03/12/19 at 09:30 Morphine Sulfate (morphine) 0.5 mg Q4H PRN IV SEVERE PAIN LEVEL 7-10; Start 03/12/19 at 09:00 Petrolatum (Vaseline) 1 applic BID PRN TOP DRY MOUTH Last administered on 03/12/19 10:36; Admin Dose 1 APPLIC; Start 03/12/19 at 10:00 Collagenase (Santyl) 1 applic DAILY TOP Last administered on 03/21/19 08:55; Admin Dose 1 APPLIC; Start 03/12/19 at 14:00 Levalbuterol (Xopenex Neb) 0.63 mg Q6HWA RESP THERAPY HHN Last administered on 03/21/19 08:26; Admin Dose 0.63 MG; Start 03/12/19 at 20:00 Prednisone (Prednisone) 2.5 mg DAILY PEG Last administered on 03/21/19 08:54; Admin Dose 2.5 MG; Start 03/21/19 at 09:00 Assessment/Plan Hospital Course (Demo Recall) IMPRESSION: 1. Dysphagia, status post percutaneous endoscopic gastrostomy tube placement. 2. History of Down syndrome. 3. History of aspiration pneumonia. PLAN: 1. Tube feeding as tolerated. 2. Discharge to [facility] facility tomorrow with tube feeding adequately tolerated, and patient remains stable. JOE SHAHID MD, [facility] Mar 21, 2019 11:46
--- NOTE | 2019-03-21 13:56 | CONS ---
Assessment/Plan Assessment/Plan Hospital Course (Demo Recall) ID PROGRESS NOTE CURRENT ABX: DAY # OFF ABX DAY #1 s/p TOTAL DAY #10 => Vanco IV + Cefepime 24H INTERVAL SUMMARY * POD#2 => s/p PEG 03/19/19 * WBC elevated today -- ABX dc'd yesterday -- monitor for residual vs recurrent PNA * Awake, resting in bed, calm, cooperative, VSS, NAD, without dyspnea DIAGNOSTIC IMAGING * 03/21/19 CXR: IMPRESSION: There is right perihilar consolidation. There is nonspecific opacity at the left perihilar region. Follow up exclude tortuous vessels versus consolidation. There is likely COPD. Follow-up to resolution to exclude underlying neoplasm * 03/16/19 CXR: Interval decrease in patchy infiltrates throughout the right lung. Moderate perihilar residual remains. Stable patchy perihilar infiltrates in the left lower lung. MICRO * (-)MRSA Nares * 03/11/19 BCx (-) * 03/11/19 URINE CULTURE Final Organism 1 PROTEUS MIRABILIS COLONY COUNT >100,000 CFU/ml P. MIRAB M.I.C. RX --------- --- AMPICILLIN <=2 S CEFOTAXIME S CIPROFLOXACIN <=0.25 S GENTAMICIN <=1 S LEVOFLOXACIN <=0.12 S NITROFURANTOIN 128 R TOBRAMYCIN <=1 S TRIMETHOPRIM/SULFAMETHOXAZOLE <=20 S PHYSICAL EXAMINATION: GENERAL: VSS, NAD HEENT: AT, NC, NECK: Supple, CHEST: Rise symmetrical HEART: Pulse RRR ABDOMEN: Benign EXTREMITIES: Warm, dry SKIN: No rash, no diaphoresis ID ASSESSMENT 43 yo M admit with: 1. Sepsis, present on admission 2. Healthcare associated pneumonia, possibly aspirated 3. s/p Urinary tract infection, gram-negative rods 4. Chronic wounds 5. Down's syndrome 6. Failure to thrive, dysphagia * POD#2 => s/p PEG 03/19/19 7. Anemia (-)MRSA Nares ABX ALLERGIES: KNDA INVASIVES: PIV CURRENT ABX: DAY OFF ABX DAY #1 == Start Bactrim DS 1 tab GT BID s/p TOTAL DAY #10 => Vanco IV + Cefepime ID RECOMMENDATIONS/PLAN: 1. IV ABX DC'D YESTERDAY == CXR with concern residual PNA - -Will RX Bactrim BID via peg 2. Abnormal CXR today: Follow-up to resolution to exclude underlying neoplasm . Consultation Date/Type/Reason Admit Date/Time Mar 11, 2019 at 14:30 Initial Consult Date 03/17/19 Requesting Provider: DILIP ROBERTSON Date/Time of Note DATE: 03/21/19 TIME: 13:50 Exam/Review of Systems Exam Vitals Vital Signs Date Temp Pulse Resp B/P (MAP) Pulse Ox O2 O2 Flow FiO2 Time Delivery Rate 03/21/19 97.8 87 20 97/58 (71) 100 Room Air 11:32 03/21/19 08:26 03/21/19 4.0 07:28 Intake and Output 03/20/19 03/20/19 03/21/19 1515:00 23:00 07:00 IntakeIntake Total 710 ml 250 ml 745 ml BalanceBalance 710 ml 250 ml 745 ml Results Result Diagram: 03/21/19 0505 03/21/19 0505 Results 24hrs Laboratory Tests Test 03/21/19 05:05 White Blood Count 11.4 H Red Blood Count 4.12 L Hemoglobin 12.1 L Hematocrit 37.9 L Mean Corpuscular Volume 92.0 Mean Corpuscular Hemoglobin 29.4 Mean Corpuscular Hemoglobin Concent 31.9 L Red Cell Distribution Width 19.1 H Platelet Count 401 Mean Platelet Volume 10.3 Immature Granulocytes % 4.200 H Neutrophils % 69.7 Lymphocytes % 18.1 Monocytes % 6.9 Eosinophils % 0.8 Basophils % 0.3 Nucleated Red Blood Cells % 0.0 Immature Granulocytes # 0.480 H Neutrophils # 8.0 H Lymphocytes # 2.1 Monocytes # 0.8 Eosinophils # 0.1 Basophils # 0.0 Nucleated Red Blood Cells # 0.0 Sodium Level 136 Potassium Level 4.2 Chloride Level 102 Carbon Dioxide Level 30 Anion Gap 4 L Blood Urea Nitrogen 16 Creatinine 0.31 L Est Glomerular Filtrat Rate mL/min > 60 Glucose Level 89 Calcium Level 8.5 Phosphorus Level 3.6 Magnesium Level 2.1 Medications Medication Current Medications Acetaminophen/ Codeine Phosphate (Tylenol No.3) 1 tab Q8H PRN PO PAIN LEVEL 1- 1010; Start 03/11/19 at 14:30 Alprazolam (Xanax) 0.5 mg Q8H PRN PO ANXIETY; Start 03/11/19 at 14:30 Ascorbic Acid (Vitamin C) 500 mg DAILY PO Last administered on 03/21/19 08:54; Admin Dose 500 MG; Start 03/12/19 at 09:00 Benztropine Mesylate (Cogentin) 1 mg Q12H PO Last administered on 03/21/19 08:54; Admin Dose 1 MG; Start 03/11/19 at 21:00 Docusate Sodium (Colace) 100 mg BID PO Last administered on 03/21/19 08:53; Admin Dose 100 MG; Start 03/11/19 at 21:00 Folic Acid (Folic Acid) 1 mg DAILY PO Last administered on 03/21/19 08:54; Admin Dose 1 MG; Start 03/12/19 at 09:00 Midodrine (Proamatine) 5 mg TID PO Last administered on 03/21/19 13:16; Admin Dose 5 MG; Start 03/11/19 at 21:00 Octreotide Acetate (Sandostatin) 50 mcg QHS SC Last administered on 03/20/19 20:51; Admin Dose 50 MCG; Start 03/11/19 at 21:00 Quetiapine Fumarate (Seroquel) 50 mg BID PO Last administered on 03/21/19 08:54; Admin Dose 50 MG; Start 03/11/19 at 21:00 Senna (Senokot) 2 tab BID PO Last administered on 03/21/19 08:53; Admin Dose 2 TAB; Start 03/11/19 at 21:00 IV Flush (NS 3 ml) 3 ml PER PROTOCOL IV ; Start 03/11/19 at 14:30 Ondansetron HCl (Zofran Inj) 4 mg Q6H PRN IV NAUSEA/VOMITING; Start 03/11/19 at 14:30 Acetaminophen (Tylenol Tab) 650 mg Q6H PRN PO .PAIN 1-3 OR TEMP; Start 03/11/19 at 14:30 Enoxaparin Sodium (Lovenox) 40 mg DAILY SC Last administered on 03/21/19 09:09; Admin Dose 40 MG; Start 03/12/19 at 09:00 Albuterol/ Ipratropium (Duoneb) 3 ml Q2H RESP THERAPY PRN NEB SHORTNESS OF BREATH Last administered on 03/14/19 08:37; Admin Dose 3 ML; Start 03/11/19 at 14:30 Acetaminophen (Tylenol Supp) 650 mg Q4H PRN [place] MILD PAIN(1-3) OR TEMP>38C; Start 03/11/19 at 15:00 Multivitamins Therapeutic (Theragran) 1 tab DAILY PO Last administered on 03/21/19 08:55; Admin Dose 1 TAB; Start 03/12/19 at 09:00 Lactobacillus Acidophilus/ Rhamnosus (Culturelle) 1 cap DAILY PO Last administered on 03/21/19 08:55; Admin Dose 1 CAP; Start 03/12/19 at 09:00 Pantoprazole (Protonix Iv) 40 mg DAILY@06 IV Last administered on 03/21/19 06 :36; Admin Dose 40 MG; Start 03/12/19 at 06:00 Lorazepam (Ativan) 1 mg Q4H PRN IV AGITATION Last administered on 03/21/19 04:48; Admin Dose 1 MG; Start 03/12/19 at 09:30 Morphine Sulfate (morphine) 0.5 mg Q4H PRN IV SEVERE PAIN LEVEL 7-10; Start 03/12/19 at 09:00 Petrolatum (Vaseline) 1 applic BID PRN TOP DRY MOUTH Last administered on 03/12/19 10:36; Admin Dose 1 APPLIC; Start 03/12/19 at 10:00 Collagenase (Santyl) 1 applic DAILY TOP Last administered on 03/21/19 08:55; Admin Dose 1 APPLIC; Start 03/12/19 at 14:00 Levalbuterol (Xopenex Neb) 0.63 mg Q6HWA RESP THERAPY HHN Last administered on 03/21/19 08:26; Admin Dose 0.63 MG; Start 03/12/19 at 20:00 Prednisone (Prednisone) 2.5 mg DAILY PEG Last administered on 03/21/19 08:54; Admin Dose 2.5 MG; Start 03/21/19 at 09:00 DARRELL SAN NP Mar 21, 2019 13:56
[2019-03-21 15:50] VITALS: BP 99/61; PULSE 78; RESP 20
[2019-03-21 20:00] VITALS: BP_SYST 105; BP_SYST 145; BP_DIAS 60; BP_DIAS 73; PULSE 77; PULSE 78; RESP 18; RESP 19
[2019-03-21] MEDS: TRIMETHOPRIM/SULFAMETHOX (DS) TAB GTB SCH (21:41)
[2019-03-22] VITALS: BP 103/65; PULSE 98; RESP 19
[2019-03-22] MEDS: OCTREOTIDE 50 MCG INJ SC SCH (00:38)
[2019-03-22] MEDS: LORAZEPAM 2 MG INJ IV PRN (00:46)
[2019-03-22 04:00] VITALS: BP 95/54; PULSE 81; RESP 18
[2019-03-22] MEDS: PANTOPRAZOLE 40 MG INJ IV SCH (06:19)
[2019-03-22 07:51] VITALS: BP 104/67; PULSE 88; RESP 18
[2019-03-22] MEDS: LEVALBUTEROL (NEB) 0.63 MG/3 ML AMP HHN SCH ×2 (08:19→14:23)
[2019-03-22] MEDS: COLLAGENASE 5 GM (UD JAR) TOP SCH (09:31)
[2019-03-22] MEDS: ASCORBIC ACID 500 MG TAB PO SCH (09:31)
[2019-03-22] MEDS: TRIMETHOPRIM/SULFAMETHOX (DS) TAB GTB SCH (09:33)
[2019-03-22] MEDS: MIDODRINE 5 MG TAB PO SCH ×2 (09:33→13:45)
[2019-03-22] MEDS: FOLIC ACID 1 MG TAB PO SCH (09:33)
[2019-03-22] MEDS: DOCUSATE SODIUM 100 MG CAP PO SCH (09:33)
[2019-03-22] MEDS: predniSONE 2.5 MG TAB PEG SCH (09:33)
[2019-03-22] MEDS: MULTIVITAMINS THERAPEUTIC TAB PO SCH (09:34)
[2019-03-22] MEDS: SENNA TAB PO SCH (09:34)
[2019-03-22] MEDS: BALSAM PERU/CASTOR OIL 60 GM TUBE TOP SCH ×2 (09:34→09:35)
[2019-03-22] MEDS: BENZTROPINE 1 MG TAB PO SCH (09:34)
[2019-03-22] MEDS: QUETIAPINE 25 MG TAB PO SCH (09:34)
[2019-03-22] MEDS: LACTOBACILLUS RHAMNOSUS CAP PO SCH (09:34)
[2019-03-22] MEDS: ENOXAPARIN 40 MG/0.4 ML SYG SC SCH (10:12)
[2019-03-22 10:51] VITALS: BP 91/57; PULSE 75; RESP 19
--- NOTE | 2019-03-22 11:18 | PN ---
Date/Time of Note Date/Time of Note DATE: 03/22/19 TIME: 11:02 Assessment/Plan VTE Prophylaxis Risk score (from Ns)>0 risk: 5 SCD applied (from Ns): Yes Pharmacological prophylaxis: LMWH Lines/Catheters IV C[facility]ter [facility] (from [facility]): Peripheral IV Assessment/Plan Assessment/Plan 1. Leukocytosis- resolved - ID on board and monitoring off antibiotics - blood cultures negative - CXR with persistent perihilar consolidation seen on previous CXR - PEG in place which will hopefully reduce aspiration 2. Sepsis secondary to right sided pneumonia and UTI - resolved - remains afebrile with nl WBC 3. Bilateral pneumonia, resolving - repeat CXR noted - Pulmonology consultation appreciated and cleared for d/c once tolerating tube feeds - Speech evaluation appreciated and not ready for PO intake at this time. PEG tube placed - completed course of antibiotics 4. UTI - resolved 5. Anemia - hgb stable - no verito bleeding appreciated 6. Downs syndrome - continue home medications - Ativan PRN for agitation 7. History of insulinoma -Continue octreotide and prednisone low-dose 8. Disposition - medically stable for discharge back to SNF today. Continue TF upon discharge Result Diagram: 03/22/19 0520 03/22/19 0520 Results 24hrs Laboratory Tests Test 03/21/19 13:00 03/22/19 05:20 Urine Color STRAW Urine Clarity CLEAR Urine pH 7.0 Urine Specific [place] 1.004 Urine Ketones NEGATIVE Urine Nitrite NEGATIVE Urine Bilirubin NEGATIVE Urine Urobilinogen NEGATIVE Urine Leukocyte Esterase NEGATIVE Urine Hemoglobin NEGATIVE Urine Glucose NEGATIVE Urine Total Protein NEGATIVE White Blood Count 7.2 # Red Blood Count 3.69 L Hemoglobin 10.9 L Hematocrit 33.6 L Mean Corpuscular Volume 91.1 Mean Corpuscular Hemoglobin 29.5 Mean Corpuscular Hemoglobin Concent 32.4 Red Cell Distribution Width 18.9 H Platelet Count 428 H Mean Platelet Volume 9.5 Immature Granulocytes % 3.500 H Neutrophils % 66.0 Lymphocytes % 20.9 Monocytes % 8.2 Eosinophils % 1.1 Basophils % 0.3 Nucleated Red Blood Cells % 0.0 Immature Granulocytes # 0.250 H Neutrophils # 4.7 Lymphocytes # 1.5 Monocytes # 0.6 Eosinophils # 0.1 Basophils # 0.0 Nucleated Red Blood Cells # 0.0 Sodium Level 136 Potassium Level 4.4 Chloride Level 102 Carbon Dioxide Level 29 Anion Gap 5 Blood Urea Nitrogen 16 Creatinine 0.35 L Est Glomerular Filtrat Rate mL/min > 60 Glucose Level 101 Calcium Level 8.5 Phosphorus Level 3.6 Magnesium Level 2.1 Subjective 24 Hr Interval Summary Free Text/Dictation Patient remains calm and no acute overnight events. Given Ativan last night due to agitation. Exam/Review of Systems Exam Vitals Vital Signs Date Temp Pulse Resp B/P (MAP) Pulse Ox O2 O2 Flow FiO2 Time Delivery Rate 03/22/19 97.3 75 19 91/57 (68) 96 10:51 03/22/19 21 08:19 03/21/19 Room Air 20:00 03/21/19 4.0 20:00 Intake and Output 03/21/19 03/21/19 03/22/19 1515:00 23:00 07:00 IntakeIntake Total 900 ml OutputOutput Total 400 ml BalanceBalance -400 ml 900 ml Exam General: no acute distress. not following commands Neck: Supple, nontender, midline Respiratory: Clear to auscultation bilaterally. no wheezing or rhonchi Cardiovascular: regular rate and rhythm, no obvious murmurs Gastrointestinal: soft, non-tender to palpation, nondistended, bowel sounds heard. PEG in place Ext: Moves all extremities spontaneously Skin: No new skin lesions Results Results 24hrs Laboratory Tests Test 03/21/19 13:00 03/22/19 05:20 Urine Color STRAW Urine Clarity CLEAR Urine pH 7.0 Urine Specific [place] 1.004 Urine Ketones NEGATIVE Urine Nitrite NEGATIVE Urine Bilirubin NEGATIVE Urine Urobilinogen NEGATIVE Urine Leukocyte Esterase NEGATIVE Urine Hemoglobin NEGATIVE Urine Glucose NEGATIVE Urine Total Protein NEGATIVE White Blood Count 7.2 # Red Blood Count 3.69 L Hemoglobin 10.9 L Hematocrit 33.6 L Mean Corpuscular Volume 91.1 Mean Corpuscular Hemoglobin 29.5 Mean Corpuscular Hemoglobin Concent 32.4 Red Cell Distribution Width 18.9 H Platelet Count 428 H Mean Platelet Volume 9.5 Immature Granulocytes % 3.500 H Neutrophils % 66.0 Lymphocytes % 20.9 Monocytes % 8.2 Eosinophils % 1.1 Basophils % 0.3 Nucleated Red Blood Cells % 0.0 Immature Granulocytes # 0.250 H Neutrophils # 4.7 Lymphocytes # 1.5 Monocytes # 0.6 Eosinophils # 0.1 Basophils # 0.0 Nucleated Red Blood Cells # 0.0 Sodium Level 136 Potassium Level 4.4 Chloride Level 102 Carbon Dioxide Level 29 Anion Gap 5 Blood Urea Nitrogen 16 Creatinine 0.35 L Est Glomerular Filtrat Rate mL/min > 60 Glucose Level 101 Calcium Level 8.5 Phosphorus Level 3.6 Magnesium Level 2.1 Medications Medication Current Medications Acetaminophen/ Codeine Phosphate (Tylenol No.3) 1 tab Q8H PRN PO PAIN LEVEL 1- 10/10; Start 03/11/19 at 14:30 Alprazolam (Xanax) 0.5 mg Q8H PRN PO ANXIETY Last administered on 03/21/19 21:52; Admin Dose 0.5 MG; Start 03/11/19 at 14:30 Ascorbic Acid (Vitamin C) 500 mg DAILY PO Last administered on 03/22/19 09:31; Admin Dose 500 MG; Start 03/12/19 at 09:00 Benztropine Mesylate (Cogentin) 1 mg Q12H PO Last administered on 03/22/19 09:34; Admin Dose 1 MG; Start 03/11/19 at 21:00 Docusate Sodium (Colace) 100 mg BID PO Last administered on 03/22/19 09:33; Admin Dose 100 MG; Start 03/11/19 at 21:00 Folic Acid (Folic Acid) 1 mg DAILY PO Last administered on 03/22/19 09:33; Admin Dose 1 MG; Start 03/12/19 at 09:00 Midodrine (Proamatine) 5 mg TID PO Last administered on 03/22/19 09:33; Admin Dose 5 MG; Start 03/11/19 at 21:00 Octreotide Acetate (Sandostatin) 50 mcg QHS SC Last administered on 03/22/19 00:38; Admin Dose 50 MCG; Start 03/11/19 at 21:00 Quetiapine Fumarate (Seroquel) 50 mg BID PO Last administered on 03/22/19 09:34; Admin Dose 50 MG; Start 03/11/19 at 21:00 Senna (Senokot) 2 tab BID PO Last administered on 03/22/19 09:34; Admin Dose 2 TAB; Start 03/11/19 at 21:00 IV Flush (NS 3 ml) 3 ml PER PROTOCOL IV ; Start 03/11/19 at 14:30 Ondansetron HCl (Zofran Inj) 4 mg Q6H PRN IV NAUSEA/VOMITING; Start 03/11/19 at 14:30 Acetaminophen (Tylenol Tab) 650 mg Q6H PRN PO .PAIN 1-3 OR TEMP; Start 03/11/19 at 14:30 Enoxaparin Sodium (Lovenox) 40 mg DAILY SC Last administered on 03/22/19 10:12; Admin Dose 40 MG; Start 03/12/19 at 09:00 Albuterol/ Ipratropium (Duoneb) 3 ml Q2H RESP THERAPY PRN NEB SHORTNESS OF BREATH Last administered on 03/14/19 08:37; Admin Dose 3 ML; Start 03/11/19 at 14:30 Acetaminophen (Tylenol Supp) 650 mg Q4H PRN [place] MILD PAIN(1-3) OR TEMP>38C; Start 03/11/19 at 15:00 Multivitamins Therapeutic (Theragran) 1 tab DAILY PO Last administered on 03/22/19 09:34; Admin Dose 1 TAB; Start 03/12/19 at 09:00 Lactobacillus Acidophilus/ Rhamnosus (Culturelle) 1 cap DAILY PO Last administered on 03/22/19 09:34; Admin Dose 1 CAP; Start 03/12/19 at 09:00 Pantoprazole (Protonix Iv) 40 mg DAILY@06 IV Last administered on 03/22/19 06:19; Admin Dose 40 MG; Start 03/12/19 at 06:00 Lorazepam (Ativan) 1 mg Q4H PRN IV AGITATION Last administered on 03/22/19 00:46; Admin Dose 1 MG; Start 03/12/19 at 09:30 Morphine Sulfate (morphine) 0.5 mg Q4H PRN IV SEVERE PAIN LEVEL 7-10; Start 03/12/19 at 09:00 Petrolatum (Vaseline) 1 applic BID PRN TOP DRY MOUTH Last administered on 03/12/19 10:36; Admin Dose 1 APPLIC; Start 03/12/19 at 10:00 Collagenase (Santyl) 1 applic DAILY TOP Last administered on 03/22/19 09:31; Admin Dose 1 APPLIC; Start 03/12/19 at 14:00 Levalbuterol (Xopenex Neb) 0.63 mg Q6HWA RESP THERAPY HHN Last administered on 03/22/19 08:19; Admin Dose 0.63 MG; Start 03/12/19 at 20:00 Prednisone (Prednisone) 2.5 mg DAILY PEG Last administered on 03/22/19 09:33; Admin Dose 2.5 MG; Start 03/21/19 at 09:00 Trimethoprim/ Sulfamethoxazole (Bactrim (Ds)) 1 tab BID GTB Last administered on 03/22/19 09:33; Admin Dose 1 TAB; Start 03/21/19 at 21:00 MANDO LUCAS MD Mar 22, 2019 11:18
--- NOTE | 2019-03-22 11:33 | PDOCDIS ---
Discharge Instructions DIAGNOSIS Discharge Diagnosis 1. Leukocytosis- resolved 2. Sepsis secondary to right sided pneumonia and UTI- improving 3. Bilateral pneumonia, resolving 4. UTI- treated 5. Anemia- stable 6. Downs syndrome 7. History of insulinoma CONDITION [id number] Patient Condition: [address] Stable HOME CARE INSTRUCTIONS: [id number] Diet Instructions: [id number] Special Diet: [id number] tube feeding- fibrosource 50cc/hr, water flush 75 cc q6 Hr FOLLOW UP/APPOINTMENTS Follow-up Plan 1. Follow up with your primary care physician in 1 week 2. You were started on tube feeding via G tube given high risk for aspiration and you were assess to be unsafe for regular PO intake from our speech therapist. 3. Continue on Bactrim twice a day for 10 days with last dose 03/31 to treat residual pneumonia seen on CXR 4. If experiencing any concerning symptoms, please return to your nearest emergency department MANDO LUCAS MD Mar 22, 2019 11:33
--- NOTE | 2019-03-22 12:26 | CONS ---
Consult Date/Type/Reason Admit Date/Time Mar 11, 2019 at 14:30 Initial Consult Date 03/17/19 Type of Consult Pulmonary Requesting Provider: DILIP ROBERTSON Date/Time of Note DATE: 03/22/19 TIME: 12:25 Subjective No significant changes. Patient remains stable. Objective Vital Signs Date Temp Pulse Resp B/P (MAP) Pulse Ox O2 O2 Flow FiO2 Time Delivery Rate 03/22/19 97.3 75 19 91/57 (68) 96 10:51 03/22/19 21 08:19 03/21/19 Room Air 20:00 03/21/19 4.0 20:00 Intake and Output 03/21/19 03/21/19 03/22/19 1515:00 23:00 07:00 IntakeIntake Total 900 ml OutputOutput Total 400 ml BalanceBalance -400 ml 900 ml Exam GENERAL: VITAL SIGNS: per chart NECK: Supple. No JVD or lymphadenopathy. CARDIAC EXAM: S1, S2. No added sounds or murmurs. CHEST: clear bilaterally, No added sounds, rales or wheezes ABDOMEN: Soft, nontender. No guarding or rebound. EXTREMITIES: No cyanosis, clubbing or edema. NEUROLOGIC: Generalized weakness. No focal deficits. Vent Setting Fraction of Inspired Oxygen pe: 21 Results/Medications Result Diagram: 03/22/1920 03/22/19 0520 Results 24 hrs Laboratory Tests Test 03/21/19 13:00 03/22/19 05:20 Urine Color STRAW Urine Clarity CLEAR Urine pH 7.0 Urine Specific [place] 1.004 Urine Ketones NEGATIVE Urine Nitrite NEGATIVE Urine Bilirubin NEGATIVE Urine Urobilinogen NEGATIVE Urine Leukocyte Esterase NEGATIVE Urine Hemoglobin NEGATIVE Urine Glucose NEGATIVE Urine Total Protein NEGATIVE White Blood Count 7.2 # Red Blood Count 3.69 L Hemoglobin 10.9 L Hematocrit 33.6 L Mean Corpuscular Volume 91.1 Mean Corpuscular Hemoglobin 29.5 Mean Corpuscular Hemoglobin Concent 32.4 Red Cell Distribution Width 18.9 H Platelet Count 428 H Mean Platelet Volume 9.5 Immature Granulocytes % 3.500 H Neutrophils % 66.0 Lymphocytes % 20.9 Monocytes % 8.2 Eosinophils % 1.1 Basophils % 0.3 Nucleated Red Blood Cells % 0.0 Immature Granulocytes # 0.250 H Neutrophils # 4.7 Lymphocytes # 1.5 Monocytes # 0.6 Eosinophils # 0.1 Basophils # 0.0 Nucleated Red Blood Cells # 0.0 Sodium Level 136 Potassium Level 4.4 Chloride Level 102 Carbon Dioxide Level 29 Anion Gap 5 Blood Urea Nitrogen 16 Creatinine 0.35 L Est Glomerular Filtrat Rate mL/min > 60 Glucose Level 101 Calcium Level 8.5 Phosphorus Level 3.6 Magnesium Level 2.1 Medications Current Medications Acetaminophen/ Codeine Phosphate (Tylenol No.3) 1 tab Q8H PRN PO PAIN LEVEL 1- 10; Start 03/11/19 at 14:30 Alprazolam (Xanax) 0.5 mg Q8H PRN PO ANXIETY Last administered on 03/21/19 21: 52; Admin Dose 0.5 MG; Start 03/11/19 at 14:30 Ascorbic Acid (Vitamin C) 500 mg DAILY PO Last administered on 03/22/19 09:31; Admin Dose 500 MG; Start 03/12/19 at 09:00 Benztropine Mesylate (Cogentin) 1 mg Q12H PO Last administered on 03/22/19 09:34; Admin Dose 1 MG; Start 03/11/19 at 21:00 Docusate Sodium (Colace) 100 mg BID PO Last administered on 03/22/19 09:33; Admin Dose 100 MG; Start 03/11/19 at 21:00 Folic Acid (Folic Acid) 1 mg DAILY PO Last administered on 03/22/19 09:33; Admin Dose 1 MG; Start 03/12/19 at 09:00 Midodrine (Proamatine) 5 mg TID PO Last administered on 03/22/19 09:33; Admin Dose 5 MG; Start 03/11/19 at 21:00 Octreotide Acetate (Sandostatin) 50 mcg QHS SC Last administered on 03/22/19 00:38; Admin Dose 50 MCG; Start 03/11/19 at 21:00 Quetiapine Fumarate (Seroquel) 50 mg BID PO Last administered on 03/22/19 09:34; Admin Dose 50 MG; Start 03/11/19 at 21:00 Senna (Senokot) 2 tab BID PO Last administered on 03/22/19 09:34; Admin Dose 2 TAB; Start 03/11/19 at 21:00 IV Flush (NS 3 ml) 3 ml PER PROTOCOL IV ; Start 03/11/19 at 14:30 Ondansetron HCl (Zofran Inj) 4 mg Q6H PRN IV NAUSEA/VOMITING; Start 03/11/19 at 14:30 Acetaminophen (Tylenol Tab) 650 mg Q6H PRN PO .PAIN 1-3 OR TEMP; Start 03/11/19 at 14:30 Enoxaparin Sodium (Lovenox) 40 mg DAILY SC Last administered on 03/22/19at 10:12; Admin Dose 40 MG; Start 03/12/19 at 09:00 Albuterol/ Ipratropium (Duoneb) 3 ml Q2H RESP THERAPY PRN NEB SHORTNESS OF BREATH Last administered on 03/14/19 08:37; Admin Dose 3 ML; Start 03/11/19 at 14:30 Acetaminophen (Tylenol Supp) 650 mg Q4H PRN [place] MILD PAIN(1-3) OR TEMP>38C; Start 03/11/19 at 15:00 Multivitamins Therapeutic (Theragran) 1 tab DAILY PO Last administered on 03/22/19 09:34; Admin Dose 1 TAB; Start 03/12/19 at 09:00 Lactobacillus Acidophilus/ Rhamnosus (Culturelle) 1 cap DAILY PO Last administered on 03/22/19 09:34; Admin Dose 1 CAP; Start 03/12/19 at 09:00 Pantoprazole (Protonix Iv) 40 mg DAILY@06 IV Last administered on 03/22/19 06:19; Admin Dose 40 MG; Start 03/12/19 at 06:00 Lorazepam (Ativan) 1 mg Q4H PRN IV AGITATION Last administered on 03/22/19at 00:46; Admin Dose 1 MG; Start 03/12/19 at 09:30 Morphine Sulfate (morphine) 0.5 mg Q4H PRN IV SEVERE PAIN LEVEL 7-10; Start 03/12/19 at 09:00 Petrolatum (Vaseline) 1 applic BID PRN TOP DRY MOUTH Last administered on 03/12/19 10:36; Admin Dose 1 APPLIC; Start 03/12/19 at 10:00 Collagenase (Santyl) 1 applic DAILY TOP Last administered on 03/22/19 09:31; Admin Dose 1 APPLIC; Start 03/12/19 at 14:00 Levalbuterol (Xopenex Neb) 0.63 mg Q6HWA RESP THERAPY HHN Last administered on 03/22/19at 08:19; Admin Dose 0.63 MG; Start 03/12/19 at 20:00 Prednisone (Prednisone) 2.5 mg DAILY PEG Last administered on 03/22/19at 09:33; Admin Dose 2.5 MG; Start 03/21/19 at 09:00 Trimethoprim/ Sulfamethoxazole (Bactrim (Ds)) 1 tab BID GTB Last administered on 03/22/19at 09:33; Admin Dose 1 TAB; Start 03/21/19 at 21:00 Assessment/Plan Hospital Course (Demo Recall) IMPRESSION: 1. Dysphagia, status post percutaneous endoscopic gastrostomy tube placement. 2. History of Down syndrome. 3. History of aspiration pneumonia. PLAN: 1. Tube feeding as tolerated. 2. Discharge to snf facility. JOE SHAHID MD, [facility] Mar 22, 2019 12:26
[2019-03-22 15:05] VITALS: BP 105/62; PULSE 84; RESP 19
--- NOTE | 2019-03-22 15:48 | CONS ---
Assessment/Plan Assessment/Plan Hospital Course (Demo Recall) No acute changes, looks comfortable Microbiology: Blood cultures negative urine culture grew Proteus Antimicrobials: PO Bactrim Chest x-ray this morning revealed left basilar infiltrates unchanged, instead extensive consolidations throughout the right lung, unchanged Physical examination: This is a chronically ill-appearing middle-aged man who is in no distress head atraumatic normocephalic neck is supple chest rise symmetrical breath sounds diminished to bases heart S1-S2 abdomen soft bowel sounds hypoactive extremities without cyanosis skin patient has multiple chronic wounds one on the sacrum is healed to the other one on his hip is open Assessment: 1. Sepsis, present on admission 2. Healthcare associated pneumonia, possibly aspirated 3. Urinary tract infection, gram-negative rods 4. Chronic wounds 5. Down's syndrome Plan: Remains stable, pending dc to SNF Consultation Date/Type/Reason Admit Date/Time Mar 11, 2019 at 14:30 Initial Consult Date Type of Consult id Requesting Provider: DILIP ROBERTSON Date/Time of Note DATE: 03/22/19 TIME: 15:48 Exam/Review of Systems Exam Vitals Vital Signs Date Temp Pulse Resp B/P (MAP) Pulse Ox O2 O2 Flow FiO2 Time Delivery Rate 03/22/19 97.6 84 19 105/62 94 15:05 (76) 03/22/19 21 14:23 03/21/19 Room Air 20:00 03/21/19 4.0 20:00 Intake and Output 03/21/19 03/21/19 03/22/19 1515:00 23:00 07:00 IntakeIntake Total 900 ml OutputOutput Total 400 ml BalanceBalance -400 ml 900 ml Results Result Diagram: 03/22/19 0520 03/22/19 0520 Results 24hrs Laboratory Tests Test 03/22/19 05:20 White Blood Count 7.2 # Red Blood Count 3.69 L Hemoglobin 10.9 L Hematocrit 33.6 L Mean Corpuscular Volume 91.1 Mean Corpuscular Hemoglobin 29.5 Mean Corpuscular Hemoglobin Concent 32.4 Red Cell Distribution Width 18.9 H Platelet Count 428 H Mean Platelet Volume 9.5 Immature Granulocytes % 3.500 H Neutrophils % 66.0 Lymphocytes % 20.9 Monocytes % 8.2 Eosinophils % 1.1 Basophils % 0.3 Nucleated Red Blood Cells % 0.0 Immature Granulocytes # 0.250 H Neutrophils # 4.7 Lymphocytes # 1.5 Monocytes # 0.6 Eosinophils # 0.1 Basophils # 0.0 Nucleated Red Blood Cells # 0.0 Sodium Level 136 Potassium Level 4.4 Chloride Level 102 Carbon Dioxide Level 29 Anion Gap 5 Blood Urea Nitrogen 16 Creatinine 0.35 L Est Glomerular Filtrat Rate mL/min > 60 Glucose Level 101 Calcium Level 8.5 Phosphorus Level 3.6 Magnesium Level 2.1 Medications Medication Current Medications Acetaminophen/ Codeine Phosphate (Tylenol No.3) 1 tab Q8H PRN PO PAIN LEVEL 1-10/10; Start 03/11/19 at 14:30 Alprazolam (Xanax) 0.5 mg Q8H PRN PO ANXIETY Last administered on 03/21/19 21:52; Admin Dose 0.5 MG; Start 03/11/19 at 14:30 Ascorbic Acid (Vitamin C) 500 mg DAILY PO Last administered on 03/22/19 09:31; Admin Dose 500 MG; Start 03/12/19 at 09:00 Benztropine Mesylate (Cogentin) 1 mg Q12H PO Last administered on 03/22/19 09:34; Admin Dose 1 MG; Start 03/11/19 at 21:00 Docusate Sodium (Colace) 100 mg BID PO Last administered on 03/22/19 09:33; Admin Dose 100 MG; Start 03/11/19 at 21:00 Folic Acid (Folic Acid) 1 mg DAILY PO Last administered on 03/22/19 09:33; A dmin Dose 1 MG; Start 03/12/19 at 09:00 Midodrine (Proamatine) 5 mg TID PO Last administered on 03/22/19 13:45; Admin Dose 5 MG; Start 03/11/19 at 21:00 Octreotide Acetate (Sandostatin) 50 mcg QHS SC Last administered on 03/22/19 00:38; Admin Dose 50 MCG; Start 03/11/19 at 21:00 Quetiapine Fumarate (Seroquel) 50 mg BID PO Last administered on 03/22/19 09:34; Admin Dose 50 MG; Start 03/11/19 at 21:00 Senna (Senokot) 2 tab BID PO Last administered on 03/22/19 09:34; Admin Dose 2 TAB; Start 03/11/19 at 21:00 IV Flush (NS 3 ml) 3 ml PER PROTOCOL IV ; Start 03/11/19 at 14:30 Ondansetron HCl (Zofran Inj) 4 mg Q6H PRN IV NAUSEA/VOMITING; Start 03/11/19 at 14:30 Acetaminophen (Tylenol Tab) 650 mg Q6H PRN PO .PAIN 1-3 OR TEMP; Start 03/11/19 at 14:30 Enoxaparin Sodium (Lovenox) 40 mg DAILY SC Last administered on 03/22/19at 10:12; Admin Dose 40 MG; Start 03/12/19 at 09:00 Albuterol/ Ipratropium (Duoneb) 3 ml Q2H RESP THERAPY PRN NEB SHORTNESS OF BREATH Last administered on 03/14/19at 08:37; Admin Dose 3 ML; Start 03/11/19 at 14:30 Acetaminophen (Tylenol Supp) 650 mg Q4H PRN [place] MILD PAIN(1-3) OR TEMP>38C; Start 03/11/19 at 15:00 Multivitamins Therapeutic (Theragran) 1 tab DAILY PO Last administered on 03/22/19 09:34; Admin Dose 1 TAB; Start 03/12/19 at 09:00 Lactobacillus Acidophilus/ Rhamnosus (Culturelle) 1 cap DAILY PO Last administered on 03/22/19 09:34; Admin Dose 1 CAP; Start 03/12/19 at 09:00 Pantoprazole (Protonix Iv) 40 mg DAILY@06 IV Last administered on 03/22/19 06:19; Admin Dose 40 MG; Start 03/12/19 at 06:00 Lorazepam (Ativan) 1 mg Q4H PRN IV AGITATION Last administered on 03/22/19at 00:46; Admin Dose 1 MG; Start 03/12/19 at 09:30 Morphine Sulfate (morphine) 0.5 mg Q4H PRN IV SEVERE PAIN LEVEL 7-10; Start 03/12/19 at 09:00 Petrolatum (Vaseline) 1 applic BID PRN TOP DRY MOUTH Last administered on 03/12/19at 10:36; Admin Dose 1 APPLIC; Start 03/12/19 at 10:00 Collagenase (Santyl) 1 applic DAILY TOP Last administered on 03/22/19 09:31; Admin Dose 1 APPLIC; Start 03/12/19 at 14:00 Levalbuterol (Xopenex Neb) 0.63 mg Q6HWA RESP THERAPY HHN Last administered on 03/22/19at 14:23; Admin Dose 0.63 MG; Start 03/12/19 at 20:00 Prednisone (Prednisone) 2.5 mg DAILY PEG Last administered on 03/22/19at 09:33; Admin Dose 2.5 MG; Start 03/21/19 at 09:00 Trimethoprim/ Sulfamethoxazole (Bactrim (Ds)) 1 tab BID GTB Last administered on 03/22/19at 09:33; Admin Dose 1 TAB; Start 03/21/19 at 21:00 TANG ESQUEDA NP Mar 22, 2019 15:48
[2019-03-22] MEDS ORDERED: SOD CHLORIDE 0.9% 500 ML IV ONE (16:30)
--- NOTE | 2019-03-22 18:30 | DS ---
Date/Time of Note Date/Time of Note DATE: 03/22/19 TIME: 18:27 Discharge Summary Admission/Discharge Info Admit Date/Time Mar 11, 2019 at 14:30 Discharge Date/Time Mar 22, 2019 at 16:36 Discharge Diagnosis 1. Leukocytosis- resolved 2. Sepsis secondary to right sided pneumonia and UTI- improving 3. Bilateral pneumonia, resolving 4. UTI- treated 5. Anemia- stable 6. Downs syndrome 7. History of insulinoma Patient Condition: Stable Consults GI- Dr. Hooks Pulm- Dr. Willis ID- Dr. 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 Patient is blind and nonverbal. There was no documentation with patient at time of presentation. History obtained from ED physician who was not told any PMH by EMS. Patient currently resides in a SNF and was found to be febrile. In the ED patient was found hypoxic and placed on nonrebreather mask with improvement in saturations. CXR was performed with findings of right sided infiltrate. Patient was started on IV antibiotics as well as IV fluids. Hospital Course Patient was started on IV antibiotics and aspiration precautions. Pulmonology was consulted and recommended IV antibiotics and supplemental O2. Patient was evaluated by speech therapy and deems unsafe for PO intake. GI was consulted for PEG tube placement. ID was consulted for antibiotic recommendations for pneumonia and UTI. He was continued on IV antibiotics and transitioned to PO given CXR findings with persistent pneumonia. Patients condition remained stable and WBC normalized prior to discharge. Patient was tolerating tube feeding and discharged back to SNF in good condition. Home Meds Reported Medications Tuberculin,Purif.prot.deriv. (Tubersol) 5 Tub Unit/0.1 Ml Vial, 5 TUB ID ONCE, VIAL START DATE 03/14/19 AND END DATE 03/14/19 03/11/19 Alprazolam* (Xanax*) 0.5 Mg Tab, 0.5 MG PO Q8H PRN for ANXIETY, TAB FOR 14 DAYS, STOP DATE 03/17/19 03/11/19 Ascorbic Acid (Vitamin C) 500 Mg Tab, 500 MG PO DAILY, TAB 03/11/19 Balsam Garcia/[place] Oil (Venelex Ointment) 60 Gm Oint..gm., 1 APPLIC TOP DAILY, #1 TUB 03/11/19 Acetaminophen* (Acetaminophen*) 500 MG Extra Strength Tablet, 500 MG PO Q6H PRN for MILD PAIN(1-3)OR ELEVATED TEMP, TAB 03/11/19 Acetaminophen with Codeine (Acetaminophen-Cod #3 Tablet) 1 Each Tablet, 1 TAB PO Q8H PRN for PAIN LEVEL 1-06/10, #7 TAB 03/11/19 Quetiapine Fumarate* (Seroquel*) 50 Mg Tablet, 50 MG PO BID, TAB 03/11/19 Sennosides* (Senna Lax*) 8.6 Mg Tablet, 2 TAB PO BID, TAB 03/11/19 Protein Supplement (Promod) 946 Ml Liquid, 30 ML PO TID 03/11/19 Prednisone* (Prednisone*) 2.5 Mg Tablet, 2.5 MG PO DAILY, TAB 03/11/19 Pantoprazole* (Pantoprazole*) 40 Mg Tablet.dr, 40 MG PO AC BREAKFAST, TAB 03/11/19 Octreotide Acetate* (Octreotide Acetate*) 50 Mcg/1 Ml Disp.syrin, 50 MCG SC QHS, VIAL 03/11/19 Multivitamin with Minerals (Multivitamins with Minerals) 1 Each Tablet, 1 EACH PO DAILY, TAB 03/11/19 Midodrine* (Midodrine*) 5 Mg Tablet, 5 MG PO TID, TAB 03/11/19 Lactobacillus Acidophilus* (Lactinex*) 1 Tab Chew, 1 TAB PO DAILY, TAB 03/11/19 Folic Acid* (Folic Acid*) 1 Mg Tablet, 1 MG PO DAILY, TAB 03/11/19 Docusate Sodium* (Docusate Sodium*) 100 Mg Capsule, 100 MG PO BID, #60 CAP 03/11/19 Benztropine Mesylate* (Benztropine Mesylate*) 1 Mg Tablet, 1 MG PO Q12H, TAB 03/11/19 Follow-up Plan 1. Follow up with your primary care physician in 1 week 2. You were started on tube feeding via G tube given high risk for aspiration and you were assess to be unsafe for regular PO intake from our speech therapist. 3. Continue on Bactrim twice a day for 10 days with last dose 03/31 to treat residual pneumonia seen on CXR 4. If experiencing any concerning symptoms, please return to your nearest emergency department Primary Care Provider Not On Staff Doctor Time spent on discharge: > 30 minutes Pending Labs Laboratory Tests Test 03/22/19 05:20 White Blood Count 7.2 10^3/ul (4.8-10.8) Red Blood Count 3.69 10^6/ul (4.70-6.10) Hemoglobin 10.9 g/dl (14.0-18.0) Hematocrit 33.6 % (42.0-52.0) Mean Corpuscular Volume 91.1 fl (82.0-101.0) Mean Corpuscular Hemoglobin 29.5 pg (29.0-33.0) Mean Corpuscular Hemoglobin Concent 32.4 g/dl (32.0-37.0) Red Cell Distribution Width 18.9 % (11.5-14.5) Platelet Count 428 10^3/UL (140-415) Mean Platelet Volume 9.5 fl (7.4-10.4) Immature Granulocytes % 3.500 % (0.001-0.429) Neutrophils % 66.0 % (39.0-77.0) Lymphocytes % 20.9 % (15.0-51.0) Monocytes % 8.2 % (0.0-11.0) Eosinophils % 1.1 % (0.0-7.0) Basophils % 0.3 % (0.0-2.0) Nucleated Red Blood Cells % 0.0 /100WBC (0.0-0.0) Immature Granulocytes # 0.250 10^3/ul (0.0-0.031) Neutrophils # 4.7 10^3/ul (1.6-7.5) Lymphocytes # 1.5 10^3/ul (0.8-2.9) Monocytes # 0.6 10^3/ul (0.3-0.9) Eosinophils # 0.1 10^3/ul (0.0-0.5) Basophils # 0.0 10^3/ul (0.0-0.1) Nucleated Red Blood Cells # 0.0 10^3/ul (0.0-0.0) Sodium Level 136 mmol/L (135-144) Potassium Level 4.4 mmol/L (3.5-5.1) Chloride Level 102 mmol/L (97-110) Carbon Dioxide Level 29 mmol/L (21-31) Anion Gap 5 (5-13) Blood Urea Nitrogen 16 mg/dl (7-20) Creatinine 0.35 mg/dl (0.61-1.24) Est Glomerular Filtrat Rate mL/min > 60 mL/min (>60) Glucose Level 101 mg/dl (70-220) Calcium Level 8.5 mg/dl (8.4-10.2) Phosphorus Level 3.6 mg/dl (2.5-4.9) Magnesium Level 2.1 mg/dl (1.7-2.5) MANDO LUCAS MD Mar 22, 2019 18:30
[2019-03-23] MEDS ORDERED: LANSOPRAZOLE 30 MG CAP GTB SCH (06:00)
== END 2019-03-22 16:36 | DRG 871 ==
LOC: E/R 13:08 → 6WM 14:30
PROVIDERS: ADMIT Internal Medicine; ATTEND Internal Medicine
PROC: 0DH63UZ Insertion of Feeding Device into Stomach, Percutaneous Approach (ICD-10-PCS; principal; 2019-03-19 16:30)
DX: A41.9 Sepsis, unspecified organism (principal); J69.0 Pneumonitis due to inhalation of food and vomit; N39.0 Urinary tract infection, site not specified; G11.4 Hereditary spastic paraplegia; B96.4 Proteus (mirabilis) (morganii) as the cause of diseases classified elsewhere; D64.9 Anemia, unspecified; D13.7 Benign neoplasm of endocrine pancreas; E86.0 Dehydration; F39 Unspecified mood [affective] disorder; F03.90 Unspecified dementia, unspecified severity, without behavioral disturbance, psychotic disturbance, mood disturbance, and anxiety; H54.7 Unspecified visual loss; K21.9 Gastro-esophageal reflux disease without esophagitis; Q90.9 Down syndrome, unspecified; R13.10 Dysphagia, unspecified; R62.7 Adult failure to thrive; R63.3 Feeding difficulties; Z68.24 Body mass index [BMI] 24.0-24.9, adult; Z74.01 Bed confinement status
CPT/HCPCS: 36415; 36600; 71045; 80048; 80053; 80069; 80202; 81001; 81003; 82150; 82803; 82962; 83036; 83605; 83690; 83735; 84100; 84134; 84478; 84484; 85025; 85049; 85610; 85670; 85730; 87081; 87086; 92526; 92610; 93005; 94640; 94660; 94664; 96374; 96375; 97110; 97161; 97530; A4310; C9113; J0692; J1650; J2060; J2920; J3370; J3480; J7030; J7040; J7042; J7512